=== PATIENT | male | born 1950 | race Caucasian/White ===

== ENCOUNTER → 2016-12-09 | Outpatient (CLI) | payer MEDICARE, BC ==
--- NOTE | 2016-12-09 10:54 | US ---
EXAMINATION: Right thyroid ultrasound and ultrasound-guided right thyroid fine-needle aspiration HISTORY: Mass COMPARISON: 08/11/2014 TECHNIQUE: Grayscale images were obtained of the right thyroid lobe. Subsequently the patient was co nsented following healing the risks and benefits of the procedure. The right neck was sterilely prep ped and draped. 1% lidocaine was administered for local anesthesia. Using ultrasound guidance a tota l of 7 25-gauge and a single 22-gauge fine-needle aspirations were obtained. These were fixed 2 slid es. The patient tolerated the procedure well. FINDINGS: The right thyroid lobe demonstrated several hypoechoic heterogeneous nodules the largest a long the superficial aspect measuring 2.1 x 1.6 cm. IMPRESSION: 1. Several suspicious hypoechoic solid nodules within the right thyroid lobe. 2. The largest and most superficial nodule was fine-needle aspirated using ultrasound guidance.
== END ==
LOC: MW.US 08:22
PROVIDERS: ATTEND Otolaryngology Otolaryngology/Facial Plastic Surgery
DX: R22.1 Localized swelling, mass and lump, neck (principal); E04.1 Nontoxic single thyroid nodule
CPT/HCPCS: 10022; 76536-26-RT; 76536-RT; 76942-26-RT; 76942-RT; 88173

== ENCOUNTER 2017-03-29 10:37 | Inpatient (IN) | payer MEDICARE, BC ==
[2017-03-29] MEDS ORDERED: Sodium Chloride 0.9% 2.5 ML Syringe FLUSH PRN (11:03)
[2017-03-29] MEDS ORDERED: Sodium Chloride 0.9% 10 ML Syringe FLUSH PRN (11:03)
[2017-03-29] MEDS ORDERED: Ondansetron 4 MG/2 ML SDV IVPUSH ONE (11:03)
[2017-03-29] MEDS ORDERED: Sodium Chloride 0.9% 1,000 ML IV ONE ×3 (11:03→16:56)
[2017-03-29] MEDS ORDERED: Morphine 2 MG/ML Syringe IVPUSH ONE (11:03)
--- NOTE | 2017-03-29 11:03 | EDM.PDOC ---
ED HPI GENERAL MEDICAL PROBLEM - General Chief Complaint: Gastrointestinal Problem Stated Complaint: ADBOMIAL PAIN Time Seen by Provider: 03/29/17 10:38 Source of Information: Reports: Patient History Limitations: Reports: No Limitations - History of Present Illness INITIAL COMMENTS - FREE TEXT/NARRATIVE: History of present illness: []Patient has over a 3 year history of rectal cancer with metastases. He is currently on chemotherapy and his last chemotherapy was 6 days ago and has had no appetite with intermittent vomiting and lower abdominal pain since. After receiving chemotherapy he usually has one day of vomiting and feeling poorly and then improves. He denies any chest pain, shortness of breath, fevers or chills. Review of systems: As per history of present illness and below otherwise all systems reviewed and negative. Past medical history: As per history of present illness and as reviewed below otherwise noncontributory. Surgical history: As per history of present illness and as reviewed below otherwise noncontributory. Social history: No reported history of drug or alcohol abuse. Family history: As per history of present illness and as reviewed below otherwise noncontributory. Physical exam: General: Well developed, cachectic HEENT: Atraumatic, normocephalic, pupils reactive, negative for conjunctival pallor or scleral icterus, mucous membranes dry, throat clear, neck supple, nontender, trachea midline. Lungs: Clear to auscultation, breath sounds equal bilaterally, chest nontender. Heart: S1S2, regular, negative for clicks, rubs, or JVD. Abdomen: Soft, functioning colostomy, nondistended, nontender. Negative for masses or hepatosplenomegaly. Negative for costovertebral tenderness. Pelvis: Stable nontender. Genitourinary: Deferred. Rectal: Deferred. Extremities: Atraumatic, negative for cords or calf pain. Neurovascular unremarkable. Neuro: Awake, alert, oriented. Cranial nerves II through XII unremarkable. Cerebellum unremarkable. Motor and sensory unremarkable throughout. Exam nonfocal. Diagnostics: []Labs done showing dehydration Therapeutics: []IV hydrated while in the ED Zofran given for nausea Impression: []Dehydration on chemotherapy, Rectal cancer with metastases. Plan: []Admit for IV hydration for the treatment Definitive disposition and diagnosis as appropriate pending reevaluation and review of above. abdomen Pain Score (Numeric/FACES): 6 - Related Data Allergies Allergy/AdvReac Type Severity Reaction Status Date / Time No Known Allergies Allergy Verified 03/29/17 10:48 ED ROS GENERAL - Review of Systems Review Of Systems: See Below (See history of present illness) ED EXAM, GI/ABD - Physical Exam Exam: See Below (See history of present illness) Course - Vital Signs Last Recorded V/S: Last Vital Signs Temp 36.0 C 03/29/17 10:48 Pulse 111 H 03/29/17 10:48 Resp 14 03/29/17 11:38 BP 101/72 03/29/17 11:38 Pulse Ox 92 L 03/29/17 11:38 - Orders/Labs/Meds Orders: Active Orders 24 hr Category Date Time Status Cardiac Monitoring [RC] . DIRECTED Care 03/29/17 11:03 Active UA W/MICROSCOPIC [URIN] Stat Lab 03/29/17 11:02 Uncollected Sodium Chloride 0.9% [Saline Flush] Med 03/29/17 11:03 Active 10 ml FLUSH ASDIRECTED PRN Sodium Chloride 0.9% [Saline Flush] Med 03/29/17 11:03 Active 2.5 ml FLUSH ASDIRECTED PRN Saline Lock Insert [OM.PC] Stat Oth 03/29/17 11:02 Ordered Medication Orders Sodium Chloride (Saline Flush) 10 ml FLUSH ASDIRECTED PRN PRN Reason: Keep Vein Open Sodium Chloride (Saline Flush) 2.5 ml FLUSH ASDIRECTED PRN PRN Reason: Keep Vein Open Labs: Laboratory Tests 03/29/17 03/29/17 Range/Units 11:06 11:06 WBC 3.22 L (4.0-11.0) K/uL RBC 4.86 (4.50-5.90) M/uL Hgb 15.2 (13.0-17.0) g/dL Hct 43.6 (38.0-50.0) % MCV 89.7 (80.0-98.0) fL MCH 31.3 (27.0-32.0) pg MCHC 34.9 (31.0-37.0) g/dL RDW Std Deviation 49.8 (28.0-62.0) fl RDW Coeff of Rene 15 (11.0-15.0) % Plt Count 247 (150-400) K/uL MPV 9.20 (7.40-12.00) fL Neut % (Auto) 90.7 H (48.0-80.0) % Lymph % (Auto) 6.5 L (16.0-40.0) % Clay % (Auto) 2.8 (0.0-15.0) % Eos % (Auto) 0.0 (0.0-7.0) % Baso % (Auto) 0.0 (0.0-1.5) % Neut # (Auto) 2.9 (1.4-5.7) K/uL Lymph # (Auto) 0.2 L (0.6-2.4) K/uL Clay # (Auto) 0.1 (0.0-0.8) K/uL Eos # (Auto) 0.0 (0.0-0.7) K/uL Baso # (Auto) 0.0 (0.0-0.1) K/uL Nucleated RBC % 0.0 /100WBC Nucleated RBCs # 0 K/uL Sodium 137 (136-146) mmol/L Potassium 4.8 (3.5-5.1) mmol/L Chloride 79 L (98-110) mmol/L Carbon Dioxide 35 H (21-31) mmol/L BUN 63 H (6.0-23.0) mg/dL Creatinine 4.0 H (0.6-1.5) mg/dL Est Cr Clr Drug Dosing 14.95 mL/min Estimated GFR (MDRD) 15.1 ml/min Glucose 174 H (60-110) mg/dL Calcium 11.6 H (8.8-10.8) mg/dL Total Bilirubin 0.7 (0.1-1.5) mg/dL AST 17 (5-40) IU/L ALT 14 (8-54) IU/L Alkaline Phosphatase 76 (40-150) Total Protein 9.0 H (6.0-8.0) g/dL Albumin 4.8 (3.4-4.8) g/dL Globulin 4.2 H (2.0-3.5) g/dL Albumin/Globulin Ratio 1.1 L (1.3-2.8) Meds: Medications Generic Name Dose Route Start Last Admin Trade Name Freq PRN Reason Stop Dose Admin Sodium Chloride 10 ml 03/29/17 11:03 Saline Flush FLUSH ASDIRECTED PRN Keep Vein Open Sodium Chloride 2.5 ml 03/29/17 11:03 Saline Flush FLUSH ASDIRECTED PRN Keep Vein Open Discontinued Medications Generic Name Dose Route Start Last Admin Trade Name Pedroq PRN Reason Stop Dose Admin Sodium Chloride 1,000 mls @ 999 mls/hr 03/29/17 11:03 03/29/17 11:15 Normal Saline IV 03/29/17 12:03 999 mls/hr .Bolus ONE Administration Morphine Sulfate 2 mg 03/29/17 11:03 03/29/17 11:42 Morphine IVPUSH 03/29/17 11:04 2 mg ONETIME ONE Administration Ondansetron HCl 4 mg 03/29/17 11:03 03/29/17 11:39 Zofran IVPUSH 03/29/17 11:04 4 mg ONETIME ONE Administration Departure - Departure Time of Disposition: 12:18 Disposition: Admitted As Inpatient 65 Condition: Good Clinical Impression: Dehydration, Rectal cancer Abdominal pain Qualifiers: Abdominal location: lower abdomen, unspecified Qualified Code(s): R10.30 - Lower abdominal pain, unspecified - Discharge Information Forms: ED Department Discharge - My Orders Last 24 Hours: My Active Orders 03/29/17 11:02 UA W/MICROSCOPIC [URIN] Stat Saline Lock Insert [OM.PC] Stat 03/29/17 11:03 Cardiac Monitoring [RC] . DIRECTED Sodium Chloride 0.9% [Saline Flush] 10 ml FLUSH ASDIRECTED PRN Sodium Chloride 0.9% [Saline Flush] 2.5 ml FLUSH ASDIRECTED PRN - Assessment/Plan Last 24 Hours: My Active Orders 03/29/17 11:02 UA W/MICROSCOPIC [URIN] Stat Saline Lock Insert [OM.PC] Stat 03/29/17 11:03 Cardiac Monitoring [RC] . DIRECTED Sodium Chloride 0.9% [Saline Flush] 10 ml FLUSH ASDIRECTED PRN Sodium Chloride 0.9% [Saline Flush] 2.5 ml FLUSH ASDIRECTED PRN
[2017-03-29] MEDS ORDERED: Ondansetron 4 MG/2 ML SDV IVPUSH PRN (12:58)
[2017-03-29] MEDS ORDERED: Sodium Chloride 0.9% 1,000 ML IV SCH (13:00)
--- NOTE | 2017-03-29 13:09 | PCM.HP ---
H&P History of Present Illness - General Admit Problem/Dx: Admission Diagnosis/Problem Admission Diagnosis/Problem Acute renal failure - History of Present Illness Initial Comments - Free Text/Narative: 66 yo male with pmh of metastatic rectal cancer diangosis in 2013 with recurrence in the neck. He finished a recent round of chemotherapy six days ago. His symptoms of nausea and vomting lasted longer than normal. He has not been able to keep anything down in several days. He reports intermittent abdominal pain. He denies any fevers or chills. In the ED his blood pressure was noted to be 72/51 which responded to liter fluid bolus. He notes frequent loose stools from ostomy, and reports he is still making clear urine. He does report episodic abdominal pain. abdomen Pain Score (Numeric/FACES): 6 - Related Data Allergies/Adverse Reactions: Allergies Allergy/AdvReac Type Severity Reaction Status Date / Time No Known Allergies Allergy Verified 03/29/17 10:48 Past Medical History Cardiovascular History: Reports: Heart Murmur Genitourinary History: Reports: Other (See Below) Other Genitourinary History: cholostomy Oncologic (Cancer) History: Reports: Other (See Below) Other Oncologic History: rectal cancer- on chemo - Past Surgical History Endocrine Surgical History: Reports: Thyroidectomy Social & Family History - Family History Family Medical History: Noncontributory - Tobacco Use Smoking Status *Q: Light Tobacco Smoker Years of Tobacco use: 40 Packs/Tins Daily: 0.5 - Recreational Drug Use Recreational Drug Use: No H&P Review of Systems - Review of Systems: Review Of Systems: See Below General: Reports: No Symptoms HEENT: Reports: No Symptoms Pulmonary: Reports: No Symptoms Cardiovascular: Reports: No Symptoms Gastrointestinal: Reports: No Symptoms Genitourinary: Reports: No Symptoms Musculoskeletal: Reports: No Symptoms Skin: Reports: No Symptoms Psychiatric: Reports: No Symptoms Neurological: Reports: No Symptoms Hematologic/Lymphatic: Reports: No Symptoms Immunologic: Reports: No Symptoms Exam - Exam Exam: See Below - Vital Signs Vital Signs: Last Vital Signs Temp 36.0 C 03/29/17 10:48 Pulse 111 H 03/29/17 10:48 Resp 14 03/29/17 11:38 BP 101/72 03/29/17 11:38 Pulse Ox 92 L 03/29/17 11:38 Weight: 58.967 kg - Exam General: Alert, Oriented, Other (cachectic) Neck: Supple Cardiovascular: Regular Rate, Regular Rhythm GI/Abdominal Exam: Normal Bowel Sounds, Soft, Non-Tender, No Distention Back Exam: No: CVA Tenderness (L), CVA Tenderness (R) Extremities: Normal Inspection, Non-Tender, No Pedal Edema Skin: Warm, Dry, Intact Neurological: No: Focal Deficit Psychiatric: Alert, Normal Mood - Patient Data Lab Results Last 24 hrs: Laboratory Results - last 24 hr 03/29/17 03/29/17 Range/Units 11:06 11:06 WBC 3.22 L (4.0-11.0) K/uL RBC 4.86 (4.50-5.90) M/uL Hgb 15.2 (13.0-17.0) g/dL Hct 43.6 (38.0-50.0) % MCV 89.7 (80.0-98.0) fL MCH 31.3 (27.0-32.0) pg MCHC 34.9 (31.0-37.0) g/dL RDW Std Deviation 49.8 (28.0-62.0) fl RDW Coeff of Rene 15 (11.0-15.0) % Plt Count 247 (150-400) K/uL MPV 9.20 (7.40-12.00) fL Neut % (Auto) 90.7 H (48.0-80.0) % Lymph % (Auto) 6.5 L (16.0-40.0) % Winkler % (Auto) 2.8 (0.0-15.0) % Eos % (Auto) 0.0 (0.0-7.0) % Baso % (Auto) 0.0 (0.0-1.5) % Neut # (Auto) 2.9 (1.4-5.7) K/uL Lymph # (Auto) 0.2 L (0.6-2.4) K/uL Winkler # (Auto) 0.1 (0.0-0.8) K/uL Eos # (Auto) 0.0 (0.0-0.7) K/uL Baso # (Auto) 0.0 (0.0-0.1) K/uL Nucleated RBC % 0.0 /100WBC Nucleated RBCs # 0 K/uL Sodium 137 (136-146) mmol/L Potassium 4.8 (3.5-5.1) mmol/L Chloride 79 L (98-110) mmol/L Carbon Dioxide 35 H (21-31) mmol/L BUN 63 H (6.0-23.0) mg/dL Creatinine 4.0 H (0.6-1.5) mg/dL Est Cr Clr Drug Dosing 14.95 mL/min Estimated GFR (MDRD) 15.1 ml/min Glucose 174 H (60-110) mg/dL Calcium 11.6 H (8.8-10.8) mg/dL Total Bilirubin 0.7 (0.1-1.5) mg/dL AST 17 (5-40) IU/L ALT 14 (8-54) IU/L Alkaline Phosphatase 76 (40-150) Total Protein 9.0 H (6.0-8.0) g/dL Albumin 4.8 (3.4-4.8) g/dL Globulin 4.2 H (2.0-3.5) g/dL Albumin/Globulin Ratio 1.1 L (1.3-2.8) Result Diagrams: 03/29/17 11:06 03/29/17 11:06 *Q Meaningful Use (ADM) - VTE *Q VTE Criteria *Q: - Stroke *Q Stroke Criteria *Q: - AMI *Q AMI Criteria *Q: Problem List Initiated/Reviewed/Updated: Yes Orders Last 24hrs: Active Orders 24 hr Category Date Time Status Admission Status [Patient Status] [ADT] Stat ADT 03/29/17 13:01 Ordered Antiembolic Devices [RC] PER UNIT ROUTINE Care 03/29/17 13:00 Ordered Cardiac Monitoring [RC] . DIRECTED Care 03/29/17 11:03 Active Cardiac Monitoring [RC] CONTINUOUS Care 03/29/17 12:59 Ordered Moreno Catheter Insertion [Insert Urinary Catheter] [OM. Care 03/29/17 13:00 Ordered PC] Q24H Intake and Output [RC] QSHIFT Care 03/29/17 12:59 Ordered Oxygen Therapy [RC] PRN Care 03/29/17 12:58 Ordered Up ad Paola [RC] ASDIRECTED Care 03/29/17 12:58 Ordered Urinary Catheter Assessment [RC] ASDIRECTED Care 03/29/17 12:57 Ordered VTE/DVT Education [RC] PER UNIT ROUTINE Care 03/29/17 12:58 Ordered Vital Signs [RC] Q4H Care 03/29/17 12:58 Ordered Regular Diet [DIET] Diet 03/29/17 Breakfast Ordered Abdomen Pelvis wo Cont [CT] Stat Exams 03/29/17 12:55 Ordered Chest 2V [CR] Stat Exams 03/29/17 12:55 Ordered BASIC METABOLIC PANEL,BMP [CHEM] AM Lab 03/30/17 05:11 Ordered BASIC METABOLIC PANEL,BMP [CHEM] AM Lab 03/31/17 05:11 Ordered BASIC METABOLIC PANEL,BMP [CHEM] AM Lab 04/01/17 05:11 Ordered CBC WITH AUTO DIFF [HEME] AM Lab 03/30/17 05:11 Ordered CBC WITH AUTO DIFF [HEME] AM Lab 03/31/17 05:11 Ordered CBC WITH AUTO DIFF [HEME] AM Lab 04/01/17 05:11 Ordered CREATININE,URINE RAND [URCHEM] Stat Lab 03/29/17 12:57 Uncollected SODIUM,URINE RANDOM [URCHEM] Stat Lab 03/29/17 12:57 Uncollected UA W/MICROSCOPIC [URIN] Stat Lab 03/29/17 11:02 Uncollected Heparin Sodium Med 03/29/17 21:00 Ordered 5,000 units SUBCUT Q12HR Ondansetron [Zofran] Med 03/29/17 12:58 Ordered 4 mg IVPUSH Q4H PRN Sodium Chloride 0.9% @ 150 MLS/HR (1,000ml) Med 03/29/17 13:00 Ordered Sodium Chloride 0.9% [Normal Saline] 1,000 ml IV ASDIRECTED Sodium Chloride 0.9% [Normal Saline] 1,000 ml Med 03/29/17 13:00 Ordered IV .Bolus Sodium Chloride 0.9% [Saline Flush] Med 03/29/17 11:03 Active 10 ml FLUSH ASDIRECTED PRN Sodium Chloride 0.9% [Saline Flush] Med 03/29/17 11:03 Active 2.5 ml FLUSH ASDIRECTED PRN Saline Lock Insert [OM.PC] Stat Oth 03/29/17 11:02 Ordered Sequential Compression Device [OM.PC] Per Unit Routine Oth 03/29/17 12:59 Ordered Resuscitation Status Routine Resus Stat 07/19/17 12:58 Ordered Medication Orders Heparin Sodium (Porcine) (Heparin Sodium) 5,000 units SUBCUT Q12HR CONSUELO Sodium Chloride (Normal Saline) 1,000 mls @ 999 mls/hr IV .Bolus ONE Stop: 03/29/17 14:00 Sodium Chloride (Normal Saline) 1,000 mls @ 150 mls/hr IV ASDIRECTED CONSUELO Ondansetron HCl (Zofran) 4 mg IVPUSH Q4H PRN PRN Reason: Nausea Sodium Chloride (Saline Flush) 10 ml FLUSH ASDIRECTED PRN PRN Reason: Keep Vein Open Sodium Chloride (Saline Flush) 2.5 ml FLUSH ASDIRECTED PRN PRN Reason: Keep Vein Open Assessment/Plan Comment:: 66 yo male admitted for dehydration and acute renal failure likely due to GI side effects of chemotherapy. Will check CXR and CT scan abdomen to evaluated cough and abdominal pain. Will continue IV fluid resuscitation. CT scan reported high grade small bowel obstruction. NG tube was placed with liter fluid output. Dr. Gay was consulted and recommended transfer as he thought patent would benefit from surgery and due to renal failure thought patient should be in a place that has multi speciality consultation. Dr. Gay arranged for transfer to [facility] in [place]. Hypotension: He is responding to IV fluid boluses. CT scan reported ground glass opacities at lung bases. Empirically he was given levaquin, zosyn and vancomycin. Patient has greater than 999 mls on bladder scanner. Nurses have noted resistance with moreno placement. Dr. Mak has been consulted for Moreno placement.
--- NOTE | 2017-03-29 13:56 | CT ---
CT of the abdomen and pelvis without contrast. HISTORY: Pain TECHNIQUE: Axial CT images were obtained of the abdomen and pelvis without contrast. Coronal and sag ittal reconstructions obtained. FINDINGS: Patchy small ground glass opacities within the lung bases, right greater than left, likely centrilob ular in distribution. The liver, spleen, adrenal glands, and pancreas appear unremarkable for noncontrast examination. The gallbladder appears normal. There is no bulky retroperitoneal lymphadenopathy. No abdominal ascite s. There are no calcifications noted within the kidneys or along the courses of the ureters bilaterally . There is dilatation of the stomach and proximal small bowel. There is a transition point within the mid to left upper abdomen near images 53-57 and series 201. There is a left lower quadrant colostomy noted with a parastomal hernia containing bowel, however this appears just distal to the region of obstruction. There is no bulky pelvic lymphadenopathy. No free fluid. No free air. The urinary bladd er appears normal. The prostate is mildly prominent. The visualized osseous structures appear normal. IMPRESSION: 1. High-grade mechanical small bowel obstruction. 2. Left lower quadrant diverting colostomy with peristomal hernia of small bowel, however this to be just distal to the transition point. 3. Scattered small groundglass opacities within the lung bases. 4.
--- NOTE | 2017-03-29 14:20 | CR ---
EXAMINATION: Two-view chest (PA and Lateral views). HISTORY: Rectal cancer. Comparison: 11/08/2016. FINDINGS: The trachea is midline. The cardiomediastinal silhouette is within normal limits. There is left supr ahilar nodularity again noted corresponding to findings on the prior CT. Mild interstitial prominenc e and hyperinflation. No focal consolidation or pleural effusion. Osseous structures appear unremarkable. IMPRESSION: No acute cardiopulmonary process.
[2017-03-29] MEDS ORDERED: Levofloxacin/Dextrose 5%-Water 750 MG in Premix Bag 1 BAG IV ONE (15:15)
[2017-03-29] MEDS ORDERED: Benzocaine 20% Topical Spray UD MUCMEM ONE ×2 (15:42→15:44)
--- NOTE | 2017-03-29 16:37 | CR ---
EXAMINATION: Abdomen HISTORY: NG tube placement COMPARISON: CT from the same day TECHNIQUE: Single AP view FINDINGS: Single view of the abdomen demonstrates an NG tube with tip projecting over the stomach. A dilated loops of small bowel are not as well appreciated as noted on the recent CT. Scattered punct ate densities project over the colon. No organomegaly. The lung bases are clear. The visualized soft tissue structures appear grossly unremarkable. IMPRESSION: NG tube noted with tip projecting within the stomach.
[2017-03-29] MEDS ORDERED: Piperacillin/Tazobactam 2.25 GM in Sodium Chloride 0.9% 50 ML IV SCH (17:15)
[2017-03-29 19:41] VITALS: BP 110/60
[2017-03-29] MEDS ORDERED: Heparin Sodium 5,000 Units/ML Vial SUBCUT SCH (21:00)
--- NOTE | 2017-03-30 06:13 | HP ---
DATE OF : 1950 PRIMARY CARE PHYSICIAN: None PCP ADDENDUM: The patient is transferring to [place] per the patient request with continued care and also to a multispecialty facility for his care, and the patient is having high-grade small bowel obstruction, will likely receive surgery and the patient is currently having acute renal failure and that may put the patient at risk to dialysis. JAYJAY / EPI /[id number]
--- NOTE | 2017-03-30 06:34 | CONS ---
DATE OF CONSULTATION: 03/29/2017 DATE OF : 1950 PRIMARY CARE PHYSICIAN: None PCP CONSULTING PHYSICIAN: Dr. Menjivar. CONSULTING QUESTION: High-grade small bowel obstruction. HISTORY OF PRESENT ILLNESS: The patient is a 66-year-old gentleman, had rectal cancer, status post presumably anteroposterior resection by Dr. Jeremy Murray in [place] in 2013 and he has been doing fine in his usual health and then complained of nausea, vomiting, and abdominal pain for the last 3 days and also noticed that the colostomy bag is not blown up anymore and output from colostomy is also scanty and only liquid. Seek help in the emergency room. Admit to medical service for further management. ER workup with CAT scan came back with high-grade small bowel obstruction and also parastomal hernia. Currently, the patient is comfortable. Denied pain and the patient got 2 mg IV morphine. PHYSICAL EXAMINATION: VITAL SIGNS: Blood pressure 98/60, heart rate of 60. GENERAL: The patient is on examination alert, awake, and without complaints. HEENT: Normocephalic, atraumatic. Sclerae anicteric. LUNGS: Clear to auscultation. HEART: Regular rate and rhythm. ABDOMEN: Soft, nondistended. No pulsating, tender midline abdominal structure. Colostomy bag is flat and no output and ostomy is pink. LABORATORY DATA: Upon consultation, BUN is 68 and creatinine is 4.1. PAST MEDICAL HISTORY: The patient is not diabetic. PAST SURGICAL HISTORY: DEC, 2013. ALLERGIES: Please refer nursing for details. NG tube was inserted. Output was 1.2 liters in 40 minutes. IMPRESSION: High-grade small bowel obstruction consistent with imaging study and physical exam and lab value. The patient would benefit from timely surgical decompression. With the patient's BUN and creatinine, the patient is having acute renal failure, the patient is likely at risk for dialysis after surgery. The patient would benefit from transfer to a higher facility because of the acute renal failure and risks and benefits were discussed. The patient began treatment plan and the patient requested to be transferred to [place]. A long discussion, case presented to Dr. Petersen, on-call surgeon in [place]. Dr. Petersen accepted the transfer. The patient is being transferred to a higher facility. Treatment plan has been also discussed with Dr. Menjivar, the medical attending. As always, thank you for the kind referral. JAYJAY / EPI /[id number]
== END 2017-03-29 18:10 | DRG 641 ==
LOC: MW.ED 10:37 → MW.MS 13:01
PROVIDERS: ADMIT Internal Medicine; ATTEND Internal Medicine
DX: E86.0 Dehydration (principal); R10.30 Lower abdominal pain, unspecified; K56.60 Unspecified intestinal obstruction; N17.9 Acute kidney failure, unspecified; C20 Malignant neoplasm of rectum; I95.9 Hypotension, unspecified; Z79.899 Other long term (current) drug therapy; Z93.3 Colostomy status
CPT/HCPCS: 36415; 80053; 85025; 96361; 96374; 96375; 99285; J2270; J2405; J7040; 51703; 71020; 71020-26; 74000; 74000-26; 74176; 74176-26; 81001; 82570; 84300; 87040; A9270-GY; J1956; J2543; J3370; J7050

== ENCOUNTER 2018-01-02 11:06 | Inpatient (IN) | payer MEDICARE, BC ==
[2018-01-02] MEDS ORDERED: Sodium Chloride 0.9% 1,000 ML IV ONE (11:41)
--- NOTE | 2018-01-02 11:46 | EDM.PDOC ---
ED HPI GENERAL MEDICAL PROBLEM - General Chief Complaint: Abdominal Pain Stated Complaint: ABDOMINAL EVALUATION Time Seen by Provider: 01/02/18 11:22 - History of Present Illness INITIAL COMMENTS - FREE TEXT/NARRATIVE: HISTORY AND PHYSICAL: History of present illness: The patient is a 59-year-old male with a known history of metastatic rectal cancer who had surgery on this and has a colostomy and has a port in place who was recently seen in the oncology clinic on December 21 after having a PET scan performed October 30, 2018. The patient had been on palliative chemotherapy which was placed on hold and the PET scan was performed which showed progression of the disease with an increasing an enlarging presacral mass decreasing pulmonary metastatic disease. He also had some unchanged low level uptake within the region of the spinal cord at T12. At that appointment it was decided to restart chemotherapy both oral and IV and his last chemotherapy was December 21. He is scheduled to get chemotherapy every 3 weeks and is scheduled for the next chemotherapy next week. Family says that in March of last year he did have a bowel obstruction but has been doing well with intermittent constipation since that time. According to family last week he had abdominal pain distention and constipation for about 3-4 days and had in explosive large bowel movement on Monday and since that time has not had any pain. They're concerned because since that time he has had increased levels of gas production and pasty and liquidy stools without black or bloody stools. The patient tells me he always has liquidy stools and that that is not new or different but the increased gas is. He currently states he has no abdominal pain no lightheadedness no chest pain no shortness of breath and is not feeling weak or like he is going to pass out or black out. The patient presented today to oncology clinic and was noted to have a blood pressure 80s over 50s and was given 1 L of fluid with improvement but they were concerned because he has had a 16 pound weight loss over the last 2 weeks area the patient and family tell me he is not eating very much and he is not even doing Ensure supplementation. He says he does not have much of an appetite and he is not nauseated. He had a small emesis this morning but is not nauseated now and says he does not want anything for that. He says he is just not eating because he does not have much of an appetite and the family is concerned with increased volume of liquid output that is going to progress to lose more weight and become more dehydrated. Labs were drawn in oncology clinic, CBC and CMP, and his port was accessed with a IV fluids. Currently in the ED now he has no complaints whatsoever. Family and patient say that he always has a cough productive of phlegm and that is not new or different. Review of systems: As per history of present illness and below otherwise all systems reviewed and negative. Past medical history: As per history of present illness and as reviewed below otherwise noncontributory. Surgical history: As per history of present illness and as reviewed below otherwise noncontributory. Social history: No reported history of drug or alcohol abuse. Family history: As per history of present illness and as reviewed below otherwise noncontributory. Physical exam: General: Well-developed thin cachectic man who is nontoxic and speaking clearly and moves easily in the ED without distress. Vital signs are noted by me HEENT: Atraumatic, normocephalic, pupils reactive, negative for conjunctival pallor or scleral icterus, mucous membranes tacky, throat clear, neck supple, nontender, trachea midline. Lungs: Coarse breath sounds bilaterally with occasional rhonchi but no wheezing stridor or work of breathing, breath sounds equal bilaterally, chest nontender. Port is identified in the left upper chest wall without redness discomfort or erythema Heart: S1S2, regular, negative for clicks, rubs, or JVD. Abdomen: Soft, nondistended, nontender. Negative for masses or hepatosplenomegaly. Negative for costovertebral tenderness. Bowel sounds are hypoactive and colostomy is seen in the left lower abdomen with a viable stoma and liquidy light brown stool. There is no rebound no guarding and no tympany on percussion. Pelvis: Stable nontender. Genitourinary: Deferred. Rectal: Deferred. Extremities: Atraumatic, negative for cords or calf pain. Neurovascular unremarkable. Neuro: Awake, alert, oriented. Cranial nerves II through XII unremarkable. Cerebellum unremarkable. Motor and sensory unremarkable throughout. Exam nonfocal. Diagnostics: CBC and CMP were sent from oncology clinic and we will add magnesium level UA chest and abdominal x-rays Therapeutics: IV fluids Patient labs from today have been compared to those performed on December 20 and his BUN and creatinine of today is significantly higher than that performed on the earlier test. Today's labs are 56/2.0 and on December 20 they were 13/1.0. Patient also has a change in pulse from supine to sitting position from 65-81 but no change in blood pressure and doesn't do so we feel woozy or dizzy. At this point he has also not been able to make urine as he does not feel the urge. His potassium is low and his magnesium was also low. I discussed with and family at bedside observation admission to try to correct these abnormalities and potential he meet with dietary to discuss options for him to improve his nutrition and by mouth intake. I will discuss this case with the hospitalist Impression: Dehydration from diarrhea, mild hypokalemia and hypomagnesemia, history of metastatic rectal cancer on chemotherapy Definitive disposition and diagnosis as appropriate pending reevaluation and review of above. - Related Data Allergies Allergy/AdvReac Type Severity Reaction Status Date / Time No Known Allergies Allergy Verified 01/02/18 11:13 Home Meds: Home Meds Allopurinol [Zyloprim] 100 mg PO DAILY 01/02/18 [History] Calcium Carbonate/Vitamin D3 [Calcium Carb 500 MG] 500 mg PO BID 01/02/18 [ History] Capecitabine [Xeloda] 1,000 mg PO BID 01/02/18 [History] Capecitabine [Xeloda] 300 mg PO BID 01/02/18 [History] Colchicine 0.6 mg PO DAILY PRN 01/02/18 [History] Diphenoxylate HCl/Atropine [Lomotil] 1 tab PO QID PRN 01/02/18 [History] Ferrous Fumarate [Hemocyte] 324 mg PO DAILY 01/02/18 [History] Levothyroxine 125 mcg PO ACBREAKFAST 01/02/18 [History] Multivitamin [Daily Multiple Vitamin] 1 tab PO DAILY 01/02/18 [History] Prednisone [IMW: predniSONE] 20 mg PO ASDIRECTED 01/02/18 [History] Past Medical History Cardiovascular History: Reports: Heart Murmur Gastrointestinal History: Reports: Other (See Below) Other Gastrointestinal History: rectal cancer Genitourinary History: Reports: Other (See Below) Other Genitourinary History: cholostomy Oncologic (Cancer) History: Reports: Other (See Below) Other Oncologic History: rectal cancer- on chemo - Past Surgical History Endocrine Surgical History: Reports: Thyroidectomy Social & Family History - Family History Family Medical History: Noncontributory - Tobacco Use Smoking Status *Q: Current Every Day Smoker Years of Tobacco use: 40 Packs/Tins Daily: 0.4 - Recreational Drug Use Recreational Drug Use: No ED ROS GENERAL - Review of Systems Review Of Systems: ROS reveals no pertinent complaints other than HPI. ED EXAM, GENERAL - Physical Exam Exam: See Below (See dictation) Course - Vital Signs Last Recorded V/S: Last Vital Signs Temp 36.2 C 01/02/18 11:13 Pulse 86 01/02/18 11:13 Resp 18 01/02/18 11:13 BP 101/61 01/02/18 11:13 Pulse Ox 94 L 01/02/18 11:13 Orthostatic Blood Pressure [ 100/55 Sitting] Orthostatic Blood Pressure [ 106/63 Supine] - Orders/Labs/Meds Orders: Active Orders 24 hr Category Date Time Status UA W/MICROSCOPIC [URIN] Stat Lab 01/02/18 11:39 Ordered Magnesium Sulfate [Magnesium Sulfate 50%] 1 gm Med 01/03/18 09:00 Active Sodium Chloride 0.9% [Normal Saline] 50 ml IV DAILY Medication Orders Magnesium Sulfate 1 gm/ Sodium (Chloride) 52 mls @ 52 mls/hr IV DAILY OCNSUELO Labs: Laboratory Tests 01/02/18 Range/Units 10:00 Magnesium 1.3 L (1.5-2.0) mg/dL Meds: Medications Generic Name Dose Route Start Last Admin Trade Name Freq PRN Reason Stop Dose Admin Magnesium Sulfate 1 gm/ Sodium 52 mls @ 52 mls/hr 01/03/18 09:00 Chloride IV DAILY CONSUELO Discontinued Medications Generic Name Dose Route Start Last Admin Trade Name Freq PRN Reason Stop Dose Admin Sodium Chloride 1,000 mls @ 999 mls/hr 01/02/18 11:41 01/02/18 11:53 Normal Saline IV 01/02/18 12:41 999 mls/hr STAT ONE Administration Magnesium Sulfate 1 gm 01/02/18 12:37 Magnesium Sulfate 50% IV 01/02/18 12:38 ONETIME ONE Potassium Chloride 40 meq 01/02/18 12:37 Klor-Con M20 PO 01/02/18 12:38 ONETIME ONE Departure - Departure Time of Disposition: 12:54 Disposition: Refer to Observation Condition: Good Clinical Impression: Dehydration, Rectal cancer Diarrhea Qualifiers: Diarrhea type: unspecified type Qualified Code(s): R19.7 - Diarrhea, unspecified - Discharge Information Referrals: PCP,Unknown [Primary Care Provider] - Forms: ED Department Discharge - My Orders Last 24 Hours: My Active Orders 01/02/18 11:39 UA W/MICROSCOPIC [URIN] Stat 01/03/18 09:00 Magnesium Sulfate [Magnesium Sulfate 50%] 1 gm Sodium Chloride 0.9% [Normal Saline] 50 ml IV DAILY - Assessment/Plan Last 24 Hours: My Active Orders 01/02/18 11:39 UA W/MICROSCOPIC [URIN] Stat 01/03/18 09:00 Magnesium Sulfate [Magnesium Sulfate 50%] 1 gm Sodium Chloride 0.9% [Normal Saline] 50 ml IV DAILY
--- NOTE | 2018-01-02 12:25 | CR ---
EXAMINATION: PA chest and AP and upright abdomen HISTORY: Pain. Comparison: Chest and abdomen radiographs dated 03/29/2017 FINDINGS: The trachea is midline. The cardiomediastinal silhouette is within normal limits. Stable perihilar sc arring noted bilaterally. There is a left-sided [id number]. Mild hyperinflation. No pulmonary infi ltrates, effusions or pneumothorax. No free air under the diaphragm. Stool and gas is noted within the colon without evidence of dilated small bowel. No organomegaly. No abnormal calcifications project over the kidneys. Clips project over the left abdomen. Degenerative changes noted within the lower lumbar spine. Osseous structures appear unremarkable. IMPRESSION: 1. No acute cardiopulmonary finding. 2. No acute findings noted within the abdomen.
[2018-01-02] MEDS ORDERED: Potassium Chloride 20 MEQ Tab.ER PO ONE ×2 (12:37→15:00)
[2018-01-02] MEDS ORDERED: Magnesium Sulfate (4.06 MEQ/ML) 1 GM/2 ML SDV IV ONE (12:37)
[2018-01-02] MEDS ORDERED: Acetaminophen 325 MG Tab PO PRN (13:47)
[2018-01-02] MEDS ORDERED: Magnesium Sulfate/Water 2 GM in Premix Bag 1 BAG IV ONE (13:55)
--- NOTE | 2018-01-02 14:04 | PCM.HP ---
<Luba Dimas M - Last Filed: 01/02/18 15:17> H&P History of Present Illness - General Date of Service: 01/02/18 Admit Problem/Dx: Admission Diagnosis/Problem Admission Diagnosis/Problem Dehydration Source of Information: Patient, Family (Daughters, Maria C and Yessenia helped with history. Along with Sebastian's sister Deb at bedside. ), Old Records ( Oncology records and [facility] records reviewed) History Limitations: Reports: No Limitations - History of Present Illness Initial Comments - Free Text/Narative: This 67 year old male with pmh of stage IV rectal cancer who is S/P APR with colostomy, hx thyroidectomy secondary to thyroid cancer, tobacco abuse and gout , presented initially to Oncology unit, noted to have BP mid 80s SBP and brought to the ED. He reports he is not eating or drinking well and having increased liquid brown to yellow stools. He denies abdominal pain, but having some heartburn. No black or bloody BMs. No hematemesis or epitaxis. He denies fevers, chills or URI symptoms. He reports a chronic cough with white,frothy phlegm. He reports having chemotherapy 2 weeks ago and is due for follow up with Dr Malagon, Oncology, on this week. He has not been eating much, due to poor appetite and nothing tasting good. He reports some mouth sores and pain with swallowing. No troubles swallowing. In Oncology, labwork obtained WBc 2,220, ANC 1554, Hgb 14.5, platelets 108, Na 133, K+2.9 Cl 96, bicarb 19.8, BUN 56, Cr 2.0 and magnesium 1.3. BP in ED after receiving 1 L fluids in Oncology was up to 100s SBP, Orthostatic BP in ED negative. He was treated with another 1 L fluids in ED, Magnesium 1 gm IV and 40 MEQ Potassium. He will be admitted observation for dehydration. PCP, Dr Melvin. Oncology Dr Malagon. - Related Data Allergies/Adverse Reactions: Allergies Allergy/AdvReac Type Severity Reaction Status Date / Time No Known Allergies Allergy Verified 01/02/18 11:13 Home Medications: Home Meds Allopurinol [Zyloprim] 100 mg PO DAILY 01/02/18 [History] Calcium Carbonate/Vitamin D3 [Calcium Carb 500 MG] 500 mg PO BID 01/02/18 [ History] Capecitabine [Xeloda] 1,000 mg PO BID 01/02/18 [History] Capecitabine [Xeloda] 300 mg PO BID 01/02/18 [History] Colchicine 0.6 mg PO DAILY PRN 01/02/18 [History] Diphenoxylate HCl/Atropine [Lomotil] 1 tab PO QID PRN 01/02/18 [History] Ferrous Fumarate [Hemocyte] 324 mg PO DAILY 01/02/18 [History] Levothyroxine 125 mcg PO ACBREAKFAST 01/02/18 [History] Multivitamin [Daily Multiple Vitamin] 1 tab PO DAILY 01/02/18 [History] Prednisone [IMW: predniSONE] 20 mg PO ASDIRECTED 01/02/18 [History] Past Medical History Cardiovascular History: Reports: Heart Murmur. Denies: Afib, Blood Clots/VTE/ DVT, CAD, [place] Respiratory History: Reports: None. Denies: PE, SOB Gastrointestinal History: Reports: Bowel Obstruction, Other (See Below) Other Gastrointestinal History: rectal cancer S/P APR with colostomy Musculoskeletal History: Reports: None Neurological History: Reports: None Psychiatric History: Reports: None Endocrine/Metabolic History: Reports: Hypothyroidism Hematologic History: Reports: None Oncologic (Cancer) History: Reports: Thyroid, Other (See Below) Other Oncologic History: rectal cancer- on chemo - Past Surgical History GI Surgical History: Reports: Other (See Below) (APR with colostomy) Endocrine Surgical History: Reports: Thyroidectomy Social & Family History - Family History Family Medical History: Noncontributory - Tobacco Use Smoking Status *Q: Current Every Day Smoker Years of Tobacco use: 40 Packs/Tins Daily: 0.4 - Alcohol Use Alcohol Use History: Yes Days Per Week of Alcohol Use: 4 Number of Drinks Per Day: 2 Total Drinks Per Week: 8 - Recreational Drug Use Recreational Drug Use: No - Living Situation & Occupation Living situation: Reports: Alone H&P Review of Systems - Review of Systems: Review Of Systems: See Below General: Reports: Weakness, Decreased Appetite, Weight Loss. Denies: Fever, Chills, Malaise HEENT: Reports: Sore Throat (pain with swallowing). Denies: Headaches, Sinus Congestion, Visual Changes Pulmonary: Reports: Cough (at baseline), Sputum (white froathy sputum) Cardiovascular: Reports: No Symptoms. Denies: Chest Pain, Palpitations, Edema, Lightheadedness Gastrointestinal: Reports: Diarrhea, Decreased Appetite, Flatus (a lot of gas from colostomy), Other (heartburn). Denies: Abdominal Pain, Black Stool, Bloody Stool, Distension, Hematemesis, Melena, Nausea, Vomiting Genitourinary: Reports: No Symptoms. Denies: Dysuria, Frequency, Burning Musculoskeletal: Reports: No Symptoms. Denies: Neck Pain, Back Pain Skin: Reports: No Symptoms Psychiatric: Reports: No Symptoms Neurological: Reports: No Symptoms Hematologic/Lymphatic: Reports: No Symptoms Immunologic: Reports: No Symptoms Exam - Exam Exam: See Below - Vital Signs Vital Signs: Last Vital Signs Temp 97.1 F 01/02/18 11:13 Pulse 86 01/02/18 11:13 Resp 18 01/02/18 11:13 BP 101/61 01/02/18 11:13 Pulse Ox 94 L 01/02/18 11:13 Orthostatic Blood Pressure [ 100/55 Sitting] Orthostatic Blood Pressure [ 106/63 Supine] Weight: 112 lb 14.027 oz - Exam Quality Assessment: DVT Prophylaxis General: Alert, Oriented, Cooperative, Other (cachetic in appearance and appears older than stated age) HEENT: Conjunctiva Clear, Posterior Pharynx Clear, Other (tongue lacy appearance. No erythema). No: Mucosa Moist & Sleepy Eye (dry) Neck: Supple, Trachea Midline, 2 Lungs: Clear to Auscultation, Normal Respiratory Effort Cardiovascular: Regular Rate, Regular Rhythm, Other (Port to L chest. ) GI/Abdominal Exam: Normal Bowel Sounds, Soft, Non-Tender, Other (Colostomy- stoma in good color, red, no bleeding ) Extremities: Normal Inspection, Normal Range of Motion, Non-Tender, No Pedal Edema, Normal Capillary Refill Skin: Warm, Dry Neuro Extensive - Mental Status: Alert, Oriented x3, Normal Mood/Affect, Normal Cognition Psychiatric: Alert, Normal Affect, Normal Mood - Patient Data Lab Results Last 24 hrs: Laboratory Results - last 24 hr 01/02/18 Range/Units 10:00 Magnesium 1.3 L (1.5-2.0) mg/dL *Q Meaningful Use (ADM) - VTE Risk Assess *Q Each Risk Factor Represents 1 Point: Serious lung disease including pneumonia Total Score 1 Point Risk Factors: 1 Each Risk Factor Represents 2 Points: Age 60 - 74 Years, Central venous access, Malignancy (present or previous) Total Score 2 Point Risk Factors: 6 Each Risk Factor Represents 3 Points: None Total Score 3 Point Risk Factors: 0 Each Risk Factor Represents 5 Points: None Total Score 5 Point Risk Factors: 0 Venous Thromboembolism Risk Factor Score *Q: 7 - Problem List (1) Dehydration SNOMED Code(s): 35235227 ICD Code: E86.0 - DEHYDRATION Status: Acute Current Visit: Yes (2) Diarrhea SNOMED Code(s): 60061077 ICD Code: R19.7 - DIARRHEA, UNSPECIFIED Status: Acute Current Visit: Yes Qualifiers: Diarrhea type: unspecified type Qualified Code(s): R19.7 - Diarrhea, unspecified (3) Oral candidiasis SNOMED Code(s): 73393265 ICD Code: B37.0 - CANDIDAL STOMATITIS Status: Acute Current Visit: Yes (4) Hypokalemia SNOMED Code(s): 13093595 ICD Code: E87.6 - HYPOKALEMIA Status: Acute Current Visit: Yes (5) Hypomagnesemia SNOMED Code(s): 876820718 ICD Code: E83.42 - HYPOMAGNESEMIA Status: Acute Current Visit: Yes (6) Hx of thyroid cancer SNOMED Code(s): 601252577 ICD Code: Z85.850 - PERSONAL HISTORY OF MALIGNANT NEOPLASM OF THYROID Status: Chronic Current Visit: Yes (7) Tobacco abuse SNOMED Code(s): 346215278 ICD Code: Z72.0 - TOBACCO USE Status: Chronic Current Visit: Yes (8) Gout SNOMED Code(s): 84769632 ICD Code: M10.9 - GOUT, UNSPECIFIED Status: Chronic Current Visit: Yes Qualifiers: Gout site: unspecified site Chronicity: chronic (9) Colostomy in place SNOMED Code(s): 847751553, 126084709 ICD Code: Z93.3 - COLOSTOMY STATUS Status: Chronic Current Visit: Yes (10) Palliative chemotherapy underway SNOMED Code(s): 474254860, 819180244 ICD Code: Z51.11 - ENCOUNTER FOR ANTINEOPLASTIC CHEMOTHERAPY; Z51.5 - ENCOUNTER FOR PALLIATIVE CARE Status: Chronic Current Visit: Yes (11) Rectal cancer SNOMED Code(s): 099036714 ICD Code: C20 - MALIGNANT NEOPLASM OF RECTUM Status: Chronic Current Visit: Yes Problem List Initiated/Reviewed/Updated: Yes Orders Last 24hrs: Active Orders 24 hr Category Date Time Status Patient Status [ADT] Stat ADT 01/02/18 13:11 Active Intake and Output [RC] QSHIFT Care 01/02/18 13:48 Active Oxygen Therapy [RC] PRN Care 01/02/18 13:48 Active Up With Assistance [RC] ASDIRECTED Care 01/02/18 13:47 Active VTE/DVT Education [RC] PER UNIT ROUTINE Care 01/02/18 13:48 Active Vital Signs [RC] Q4H Care 01/02/18 13:48 Active Consult to Environmental Monitoring Specialist [CONS] Routine Cons 01/02/18 13:47 Active Regular Diet [DIET] Diet 01/02/18 Dinner Active BASIC METABOLIC PANEL,BMP [CHEM] AM Lab 01/03/18 05:11 Ordered CBC WITH AUTO DIFF [HEME] AM Lab 01/03/18 05:11 Ordered MAGNESIUM [CHEM] AM Lab 01/03/18 05:11 Ordered UA W/MICROSCOPIC [URIN] Stat Lab 01/02/18 11:39 Ordered Acetaminophen [Tylenol] Med 01/02/18 13:47 Active 650 mg PO Q4H PRN Heparin Sodium Med 01/02/18 21:00 Active 5,000 units SUBCUT Q12HR Lactated Ringers [Ringers, Lactated] 1,000 ml Med 01/02/18 14:00 Active IV ASDIRECTED Magnesium Sulfate [Magnesium Sulfate 50%] 1 gm Med 01/03/18 09:00 Active Sodium Chloride 0.9% [Normal Saline] 50 ml IV DAILY Magnesium Sulfate/Water [Magnesium Sulfate 2 GM in Med 01/02/18 13:55 Ordered Water 50 ML] 2 gm Premix Bag 1 bag IV ONETIME Ondansetron [Zofran] Med 01/02/18 13:47 Active 4 mg IVPUSH Q4H PRN Potassium Chloride [Klor-Con M20] Med 01/02/18 15:00 Once 40 meq PO ONETIME ONE Medication Orders Acetaminophen (Tylenol) 650 mg PO Q4H PRN PRN Reason: Pain (mild 1-3) Heparin Sodium (Porcine) (Heparin Sodium) 5,000 units SUBCUT Q12HR [facility] Magnesium Sulfate 1 gm/ Sodium (Chloride) 52 mls @ 52 mls/hr IV DAILY [facility] Last Admin: 01/02/18 13:00 Dose: 52 mls/hr Lactated Ringer's (Ringers, Lactated) 1,000 mls @ 125 mls/hr IV ASDIRECTED [facility] Magnesium Sulfate 2 gm/ Premix 50 mls @ 50 mls/hr IV ONETIME ONE Stop: 01/02/18 14:54 Ondansetron HCl (Zofran) 4 mg IVPUSH Q4H PRN PRN Reason: Nausea Potassium Chloride (Klor-Con M20) 40 meq PO ONETIME ONE Stop: 01/02/18 15:01 Assessment/Plan Comment:: This 67 year old male admitted with dehydration and diarrhea who is currently receiving palliative chemotherapy for Stage IV metastatic rectal cancer. 1. Dehydration: Given 2 L since arrival to ED. Will continue LR 125 now overnight and monitor. 2. Diarrhea: Will obtain stool samples. If no risk of infectious will give Imodium. 3. Hypokalemia/hypomagnesemia: Supplement with another K+ 40 MEQ this afternoon and will give another 2 gm IV today of Magnesium. 4. Oral Candidiasis: Will treat with magic Mouth Wash swish and swallow. Monitor. 5. Rectal cancer: Stage IV with metastases to lung. Hold oral chemotherapy for now. Will see Dr Malagon on . Will consult Environmental Monitoring Specialist for diet recommendations and education. VTE prophylaxis: Heparin Q12hr Dispo: 1 day. <Zoe Maria - Last Filed: 01/03/18 00:58> H&P History of Present Illness - General Admit Problem/Dx: Admission Diagnosis/Problem Admission Diagnosis/Problem Dehydration Exam - Vital Signs Vital Signs: Last Vital Signs Temp 97.7 F 01/02/18 20:00 Pulse 82 01/02/18 20:00 Resp 18 01/02/18 20:00 BP 106/75 01/02/18 20:00 Pulse Ox 94 L 01/02/18 20:00 Orthostatic Blood Pressure [ 100/55 Sitting] Orthostatic Blood Pressure [ 106/63 Supine] - Patient Data Lab Results Last 24 hrs: Laboratory Results - last 24 hr 01/02/18 01/02/18 Range/Units 10:00 13:55 Magnesium 1.3 L (1.5-2.0) mg/dL Urine Color YELLOW Urine Appearance CLEAR Urine pH 6.0 (5.0-8.0) Ur Specific [place] 1.025 (1.001-1.035) Urine Protein 30 (NEGATIVE) mg/dL Urine Glucose (UA) NEGATIVE (NEGATIVE) mg/dL Urine Ketones NEGATIVE (NEGATIVE) mg/dL Urine Occult Blood TRACE-INTACT (NEGATIVE) Urine Nitrite NEGATIVE (NEGATIVE) Urine Bilirubin SMALL H (NEGATIVE) Urine Ictotest NEGATIVE Urine Urobilinogen 0.2 (<2.0) EU/dL Ur Leukocyte Esterase NEGATIVE (NEGATIVE) Urine RBC 0-2 (0-2/HPF) Urine WBC 0-1 (0-5/HPF) Ur Epithelial Cells OCCASIONAL (NONE-FEW) Urine Bacteria FEW (NEGATIVE) Urine Mucus LIGHT (NONE-MOD) [place] Results Last 24 hrs: Microbiology 01/02/18 14:54 Clostridium difficile Toxin A & B - Final Stool / Feces Negative for C.Diff Toxin/AG Stool for WBCs - Final POSITIVE FOR WBC'S 01/02/18 14:54 Campylobacter Antigen Assay - Final Stool / Feces NEGATIVE CAMPYLOBACTER AG Orders Last 24hrs: Active Orders 24 hr Category Date Time Status Patient Status [ADT] Stat ADT 01/02/18 13:11 Active Intake and Output [RC] Q12H Care 01/02/18 13:48 Active Oxygen Therapy [RC] PRN Care 01/02/18 13:48 Active Up With Assistance [RC] ASDIRECTED Care 01/02/18 13:47 Active VTE/DVT Education [RC] PER UNIT ROUTINE Care 01/02/18 13:48 Active Vital Signs [RC] Q4H Care 01/02/18 13:48 Active Consult to Environmental Monitoring Specialist [CONS] Routine Cons 01/02/18 13:47 Active Regular Diet [DIET] Diet 01/02/18 Dinner Active BASIC METABOLIC PANEL,BMP [CHEM] AM Lab 01/03/18 05:11 Ordered CBC WITH AUTO DIFF [HEME] AM Lab 01/03/18 05:11 Ordered CDIFF TOX A+B [OP] Routine Lab 01/02/18 14:54 COMP CULTURE STOOL + CAMPY+SHIGATOX [RM] Routine Lab 01/02/18 14:54 Ordered MAGNESIUM [CHEM] AM Lab 01/03/18 05:11 Ordered WBC, STOOL [OP] Routine Lab 01/02/18 14:54 COMP Acetaminophen [Tylenol] Med 01/02/18 13:47 Active 650 mg PO Q4H PRN Allopurinol [Zyloprim] Med 01/03/18 09:00 Active 100 mg PO DAILY Atropine/Diphenoxylate [Lomotil 0.025-2.5 MG] Med 01/02/18 16:30 Active 1 tab PO QID PRN Bismuth Subsalicylate [Pepto Bismol] Med 01/03/18 00:15 Active 30 ml PO ONETIME Calcium Carbonate/Vitamin D3 [Caltrate 600+D 1500 MG- Med 01/02/18 21:00 Active 400 Units] 1 tab PO BID Ciprofloxacin in D5W [Cipro in D5W 400 MG/200 ML] 400 Med 01/03/18 00:15 Active mg Premix Bag 1 bag IV Q24H Diphenhyd/Lidocaine/Nystatin [Magic Mouthwash] Med 01/02/18 14:36 Active 10 ml PO QID Ferrous Sulfate Med 01/03/18 09:00 Active 325 mg PO DAILY Heparin Sodium Med 01/02/18 21:00 Active 5,000 units SUBCUT Q12HR Lactated Ringers [Ringers, Lactated] 1,000 ml Med 01/02/18 14:00 Active IV ASDIRECTED Levothyroxine Med 01/03/18 07:30 Active 125 mcg PO ACBREAKFAST Magnesium Sulfate [Magnesium Sulfate 50%] 1 gm Med 01/03/18 09:00 Active Sodium Chloride 0.9% [Normal Saline] 50 ml IV DAILY Multivitamins [Tab-A-Heather] Med 01/03/18 09:00 Active 1 tab PO DAILY Ondansetron [Zofran] Med 01/02/18 13:47 Active 4 mg IVPUSH Q4H PRN metroNIDAZOLE/Normal Saline [Flagyl 500 MG in NS 100 ML Med 01/03/18 00:30 Active ] 500 mg Premix Bag 1 bag IV Q8H Resuscitation Status Routine Resus Stat 01/02/18 16:30 Ordered Medication Orders Acetaminophen (Tylenol) 650 mg PO Q4H PRN PRN Reason: Pain (mild 1-3) Allopurinol (Zyloprim) 100 mg PO DAILY CONSUELO Bismuth Subsalicylate (Pepto Bismol) 30 ml PO ONETIME CONSUELO Calcium Carbonate (Caltrate 600+D 1500 Mg-400 Units) 1 tab PO BID CONSUELO Last Admin: 04/24/18 20:16 Dose: 1 tab Diphenhydramine/Nystatin/Lidocaine (Magic Mouthwash) 10 ml PO QID CONSUELO Last Admin: 01/02/18 17:13 Dose: Admin: 01/02/18 15:15 Dose: 10 ml Diphenoxylate HCl/Atropine (Lomotil 0.025-2.5 Mg) 1 tab PO QID PRN PRN Reason: loose stool Last Admin: 01/02/18 17:37 Dose: 1 tab Ferrous Sulfate (Ferrous Sulfate) 325 mg PO DAILY [facility] Heparin Sodium (Porcine) (Heparin Sodium) 5,000 units SUBCUT Q12HR [facility] Last Admin: 01/02/18 20:16 Dose: 5,000 units Magnesium Sulfate 1 gm/ Sodium (Chloride) 52 mls @ 52 mls/hr IV DAILY [facility] Last Admin: 01/02/18 13:00 Dose: 52 mls/hr Lactated Ringer's (Ringers, Lactated) 1,000 mls @ 125 mls/hr IV ASDIRECTED [facility] Last Admin: 01/02/18 23:33 Dose: 125 mls/hr Infusion: 01/02/18 22:23 Dose: 125 mls/hr Admin: 01/02/18 14:23 Dose: 125 mls/hr Ciprofloxacin/Dextrose 400 mg/ (Premix) 200 mls @ 200 mls/hr IV Q24H [facility] Metronidazole 500 mg/ Premix 100 mls @ 100 mls/hr IV Q8H [facility] Levothyroxine Sodium (Levothyroxine) 125 mcg PO ACBREAKFAST [facility] Multivitamins/Minerals/Vitamin C (Tab-A-Heather) 1 tab PO DAILY [facility] Ondansetron HCl (Zofran) 4 mg IVPUSH Q4H PRN PRN Reason: Nausea Last Admin: 01/02/18 18:45 Dose: 4 mg
[2018-01-02] MEDS: Lactated Ringers 1,000 ML IV SCH ×2 (14:23→23:33)
[2018-01-02] MEDS: Diphenhydramine/Lidocaine/Nystatin Suspension 237 ML Bottle PO SCH ×2 (15:15→17:13)
[2018-01-02] MEDS: Atropine/Diphenoxylate 0.025-2.5 MG Tab PO PRN (17:37)
[2018-01-02] MEDS: Ondansetron 4 MG/2 ML SDV IVPUSH PRN (18:45)
[2018-01-02] MEDS: Calcium Carbonate/Vitamin D3 1500 MG-400 Units Tab PO SCH (20:16)
[2018-01-02] MEDS: Heparin Sodium 5,000 Units/ML Vial SUBCUT SCH (20:16)
[2018-01-03] MEDS ORDERED: metroNIDAZOLE/Normal Saline 500 MG in Premix Bag 1 BAG IV ONE (00:11)
[2018-01-03] MEDS ORDERED: predniSONE 20 MG Tab PO SCH (00:15)
[2018-01-03] MEDS ORDERED: Bismuth Subsalicylate 262 MG/15 ML Susp 236 ML Bottle PO SCH (00:15)
[2018-01-03] MEDS ORDERED: Ciprofloxacin in D5W 400 MG in Premix Bag 1 BAG IV SCH ×2 (00:15)
[2018-01-03] MEDS: Diphenhydramine/Lidocaine/Nystatin Suspension 237 ML Bottle PO SCH ×4 (00:57→19:32)
[2018-01-03] MEDS: metroNIDAZOLE/Normal Saline 500 MG in Premix Bag 1 BAG IV SCH ×3 (02:06→15:55)
[2018-01-03] MEDS: Levothyroxine 125 MCG Tab PO SCH (06:40)
[2018-01-03 06:44] LABS: CHLORIDE,CL 104 mmol/L (98-107); SODIUM,NA 133 mmol/L (136-148)
[2018-01-03] MEDS: Multivitamin Tab PO SCH (08:39)
[2018-01-03] MEDS: Ferrous Sulfate 325 MG Tab PO SCH (08:39)
[2018-01-03] MEDS: Allopurinol 100 MG Tab PO SCH (08:39)
[2018-01-03] MEDS: Calcium Carbonate/Vitamin D3 1500 MG-400 Units Tab PO SCH ×2 (08:40→20:32)
[2018-01-03] MEDS: Potassium Chloride 20 MEQ Tab.ER PO SCH ×2 (08:50→11:00)
[2018-01-03] MEDS: Heparin Sodium 5,000 Units/ML Vial SUBCUT SCH ×2 (08:52→21:10)
[2018-01-03] MEDS ORDERED: methylPREDNISolone Sodium Succinate 40 MG/1 ML SDV IVPUSH ONE (10:34)
--- NOTE | 2018-01-03 10:34 | PCM.PN ---
- General Info Date of Service: 01/03/18 Admission Dx/Problem (Free Text): Admission Diagnosis/Problem Admission Diagnosis/Problem Dehydration Subjective Update: Feeling better today. Still having diarrhea. No abdominal pain. No chest pain or SOB. Slightly agitation this morning waiting for his ostomy bag to be changed. Functional Status: Reports: Pain Controlled, Tolerating Diet, Ambulating, Urinating - Review of Systems General: Reports: No Symptoms. Denies: Fever, Fatigue, Malaise HEENT: Reports: Sore Throat (reports this is feeling better today.) Pulmonary: Reports: No Symptoms. Denies: Shortness of Breath Cardiovascular: Reports: No Symptoms. Denies: Chest Pain, Edema Gastrointestinal: Reports: Diarrhea. Denies: Abdominal Pain, Melena, Nausea, Vomiting Genitourinary: Reports: No Symptoms. Denies: Dysuria, Frequency, Burning Musculoskeletal: Reports: No Symptoms Skin: Reports: No Symptoms Neurological: Reports: No Symptoms Psychiatric: Reports: Agitation - Patient Data Vitals - Most Recent: Last Vital Signs Temp 98.2 F 01/03/18 04:00 Pulse 77 01/03/18 04:00 Resp 19 01/03/18 04:00 BP 110/68 01/03/18 04:00 Pulse Ox 96 01/03/18 04:00 Orthostatic Blood Pressure [ 100/55 Sitting] Orthostatic Blood Pressure [ 106/63 Supine] Weight - Most Recent: 51.2 kg I&O - Last 24 Hours: Intake & Output 01/02/18 01/03/18 01/03/18 22:59 06:59 14:59 Intake Total 100 700 Output Total 0 3250 Balance 100 -2550 Lab Results Last 24 Hours: Laboratory Results - last 24 hr 01/02/18 01/02/18 01/03/18 Range/Units 10:00 13:55 05:28 WBC 0.71 L (4.0-11.0) K/uL RBC 3.82 L (4.50-5.90) M/uL Hgb 11.1 L (13.0-17.0) g/dL Hct 31.8 L (38.0-50.0) % MCV 83.2 (80.0-98.0) fL MCH 29.1 (27.0-32.0) pg MCHC 34.9 (31.0-37.0) g/dL RDW Std Deviation 43.9 (28.0-62.0) fl RDW Coeff of Rene 15 (11.0-15.0) % Plt Count 83 L (150-400) K/uL MPV 9.20 (7.40-12.00) fL Add Manual Diff YES Neutrophils % (Manual) 26 L (48.0-80.0) % Band Neutrophils % 36 % Lymphocytes % (Manual) 32 (16.0-40.0) % Monocytes % (Manual) 6 (0.0-15.0) % Nucleated RBC % 0.0 /100WBC Absolute Seg Neuts 0.2 L (1.4-5.7) Band Neutrophils # 0.3 Lymphocytes # (Manual) 0.2 L (0.6-2.4) Monocytes # (Manual) 0.0 (0.0-0.8) Nucleated RBCs # 0 K/uL Sodium (136-148) mmol/L Potassium (3.5-5.1) mmol/L Chloride (98-107) mmol/L Carbon Dioxide (21.0-32.0) mmol/L BUN (7.0-18.0) mg/dL Creatinine (0.8-1.3) mg/dL Est Cr Clr Drug Dosing mL/min Estimated GFR (MDRD) ml/min Glucose (74-106) mg/dL Calcium (8.5-10.1) mg/dL Magnesium 1.3 L (1.5-2.0) mg/dL Urine Color YELLOW Urine Appearance CLEAR Urine pH 6.0 (5.0-8.0) Ur Specific [place] 1.025 (1.001-1.035) Urine Protein 30 (NEGATIVE) mg/dL Urine Glucose (UA) NEGATIVE (NEGATIVE) mg/dL Urine Ketones NEGATIVE (NEGATIVE) mg/dL Urine Occult Blood TRACE-INTACT (NEGATIVE) Urine Nitrite NEGATIVE (NEGATIVE) Urine Bilirubin SMALL H (NEGATIVE) Urine Ictotest NEGATIVE Urine Urobilinogen 0.2 (<2.0) EU/dL Ur Leukocyte Esterase NEGATIVE (NEGATIVE) Urine RBC 0-2 (0-2/HPF) Urine WBC 0-1 (0-5/HPF) Ur Epithelial Cells OCCASIONAL (NONE-FEW) Urine Bacteria FEW (NEGATIVE) Urine Mucus LIGHT (NONE-MOD) 01/03/18 Range/Units 05:28 WBC (4.0-11.0) K/uL RBC (4.50-5.90) M/uL Hgb (13.0-17.0) g/dL Hct (38.0-50.0) % MCV (80.0-98.0) fL MCH (27.0-32.0) pg MCHC (31.0-37.0) g/dL RDW Std Deviation (28.0-62.0) fl RDW Coeff of Rene (11.0-15.0) % Plt Count (150-400) K/uL MPV (7.40-12.00) fL Add Manual Diff Neutrophils % (Manual) (48.0-80.0) % Band Neutrophils % % Lymphocytes % (Manual) (16.0-40.0) % Monocytes % (Manual) (0.0-15.0) % Nucleated RBC % /100WBC Absolute Seg Neuts (1.4-5.7) Band Neutrophils # Lymphocytes # (Manual) (0.6-2.4) Monocytes # (Manual) (0.0-0.8) Nucleated RBCs # K/uL Sodium 133 L (136-148) mmol/L Potassium 3.0 L (3.5-5.1) mmol/L Chloride 104 (98-107) mmol/L Carbon Dioxide 20.2 L (21.0-32.0) mmol/L BUN 33 H (7.0-18.0) mg/dL Creatinine 1.2 (0.8-1.3) mg/dL Est Cr Clr Drug Dosing 42.67 mL/min Estimated GFR (MDRD) > 60.0 ml/min Glucose 91 (74-106) mg/dL Calcium 7.8 L (8.5-10.1) mg/dL Magnesium 1.7 (1.5-2.0) mg/dL Urine Color Urine Appearance Urine pH (5.0-8.0) Ur Specific [place] (1.001-1.035) Urine Protein (NEGATIVE) mg/dL Urine Glucose (UA) (NEGATIVE) mg/dL Urine Ketones (NEGATIVE) mg/dL Urine Occult Blood (NEGATIVE) Urine Nitrite (NEGATIVE) Urine Bilirubin (NEGATIVE) Urine Ictotest Urine Urobilinogen (<2.0) EU/dL Ur Leukocyte Esterase (NEGATIVE) Urine RBC (0-2/HPF) Urine WBC (0-5/HPF) Ur Epithelial Cells (NONE-FEW) Urine Bacteria (NEGATIVE) Urine Mucus (NONE-MOD) [place] Results Last 24 Hours: Microbiology 01/02/18 14:54 Campylobacter Antigen Assay - Final Stool / Feces NEGATIVE CAMPYLOBACTER AG - Final NEGATIVE FOR SHIGA TOXIN 1 - Final NEGATIVE FOR SHIGA TOXIN 2 01/02/18 14:54 Clostridium difficile Toxin A & B - Final Stool / Feces Negative for C.Diff Toxin/AG Stool for WBCs - Final POSITIVE FOR WBC'S Med Orders - Current: Current Medications Acetaminophen (Tylenol) 650 mg PO Q4H PRN PRN Reason: Pain (mild 1-3) Allopurinol (Zyloprim) 100 mg PO DAILY [facility] Last Admin: 01/03/18 08:39 Dose: 100 mg Bismuth Subsalicylate (Pepto Bismol) 30 ml PO ONETIME [facility] Last Admin: 01/03/18 01:18 Dose: 30 ml Calcium Carbonate (Caltrate 600+D 1500 Mg-400 Units) 1 tab PO BID [facility] Last Admin: 01/03/18 08:40 Dose: 1 tab Diphenhydramine/Nystatin/Lidocaine (Magic Mouthwash) 10 ml PO QID [facility] Last Admin: 01/03/18 05:32 Dose: 10 ml Diphenoxylate HCl/Atropine (Lomotil 0.025-2.5 Mg) 1 tab PO QID PRN PRN Reason: loose stool Last Admin: 01/02/18 17:37 Dose: 1 tab Ferrous Sulfate (Ferrous Sulfate) 325 mg PO DAILY [facility] Last Admin: 01/03/18 08:39 Dose: 325 mg Heparin Sodium (Porcine) (Heparin Sodium) 5,000 units SUBCUT Q12HR [facility] Last Admin: 01/03/18 08:52 Dose: Not Given Lactated Ringer's (Ringers, Lactated) 1,000 mls @ 125 mls/hr IV ASDIRECTED [facility] Last Admin: 01/02/18 23:33 Dose: 125 mls/hr Ciprofloxacin/Dextrose 400 mg/ (Premix) 200 mls @ 200 mls/hr IV Q24H [facility] Last Infusion: 01/03/18 02:03 Dose: Infused Metronidazole 500 mg/ Premix 100 mls @ 100 mls/hr IV Q8H [facility] Last Admin: 01/03/18 08:13 Dose: 100 mls/hr Levothyroxine Sodium (Levothyroxine) 125 mcg PO ACBREAKFAST [facility] Last Admin: 01/03/18 06:40 Dose: 125 mcg Multivitamins/Minerals/Vitamin C (Tab-A-Heather) 1 tab PO DAILY [facility] Last Admin: 01/03/18 08:39 Dose: 1 tab Ondansetron HCl (Zofran) 4 mg IVPUSH Q4H PRN PRN Reason: Nausea Last Admin: 01/02/18 18:45 Dose: 4 mg Potassium Chloride (Klor-Con M20) 40 meq PO BID@0900,1200 [facility] Stop: 01/03/18 12:01 Last Admin: 01/03/18 08:50 Dose: 40 meq Discontinued Medications Sodium Chloride (Normal Saline) 1,000 mls @ 999 mls/hr IV STAT ONE Stop: 01/02/18 12:41 Last Admin: 01/02/18 11:53 Dose: 999 mls/hr Magnesium Sulfate 1 gm/ Sodium (Chloride) 52 mls @ 52 mls/hr IV DAILY [facility] Last Admin: 01/02/18 13:00 Dose: 52 mls/hr Magnesium Sulfate 2 gm/ Premix 50 mls @ 50 mls/hr IV ONETIME ONE Stop: 01/02/18 14:54 Last Admin: 01/02/18 14:25 Dose: 50 mls/hr Metronidazole 500 mg/ Premix 100 mls @ 100 mls/hr IV ONETIME ONE Stop: 01/03/18 01:10 Last Admin: 01/03/18 01:50 Dose: Not Given Magnesium Sulfate (Magnesium Sulfate 50%) 1 gm IV ONETIME ONE Stop: 01/02/18 12:38 Last Admin: 01/02/18 13:01 Dose: Not Given Potassium Chloride (Klor-Con M20) 40 meq PO ONETIME ONE Stop: 01/02/18 12:38 Last Admin: 01/02/18 12:58 Dose: 40 meq Potassium Chloride (Klor-Con M20) 40 meq PO ONETIME ONE Stop: 01/02/18 15:01 Last Admin: 01/02/18 14:25 Dose: 40 meq Prednisone (Prednisone) 20 mg PO ASDIRECTED [facility] - Exam General: Alert, Oriented, Cooperative, No Acute Distress HEENT: Mucous Membr. Moist/[place] Neck: Supple Lungs: Clear to Auscultation, Normal Respiratory Effort Cardiovascular: Regular Rate, Regular Rhythm GI/Abdominal Exam: Normal Bowel Sounds, Soft, Non-Tender, No Organomegaly, No Distention, No Abnormal Bruit, No Mass, Pelvis Stable, Other (liquid brown diarrhea noted to colostomy bag) Extremities: Normal Inspection, Normal Range of Motion, Non-Tender, No Pedal Edema, Normal Capillary Refill Neurological: No New Focal Deficit Psy/Mental Status: Alert, Normal Affect, Normal Mood - Problem List & Annotations (1) Dehydration SNOMED Code(s): 87567247 Code(s): E86.0 - DEHYDRATION Status: Acute Current Visit: Yes (2) Neutropenia SNOMED Code(s): 626926235 Code(s): D70.9 - NEUTROPENIA, UNSPECIFIED Status: Acute Current Visit: Yes (3) Diarrhea SNOMED Code(s): 64445600 Code(s): R19.7 - DIARRHEA, UNSPECIFIED Status: Acute Current Visit: Yes Qualifiers: Diarrhea type: unspecified type Qualified Code(s): R19.7 - Diarrhea, unspecified (4) Oral candidiasis SNOMED Code(s): 47390337 Code(s): B37.0 - CANDIDAL STOMATITIS Status: Acute Current Visit: Yes (5) Hypokalemia SNOMED Code(s): 27051686 Code(s): E87.6 - HYPOKALEMIA Status: Acute Current Visit: Yes (6) Hypomagnesemia SNOMED Code(s): 149195563 Code(s): E83.42 - HYPOMAGNESEMIA Status: Acute Current Visit: Yes (7) Hx of thyroid cancer SNOMED Code(s): 395677297 Code(s): Z85.850 - PERSONAL HISTORY OF MALIGNANT NEOPLASM OF THYROID Status : Chronic Current Visit: Yes (8) Tobacco abuse SNOMED Code(s): 378662719 Code(s): Z72.0 - TOBACCO USE Status: Chronic Current Visit: Yes (9) Gout SNOMED Code(s): 23106880 Code(s): M10.9 - GOUT, UNSPECIFIED Status: Chronic Current Visit: Yes Qualifiers: Gout site: unspecified site Chronicity: chronic (10) Colostomy in place SNOMED Code(s): 737937695, 837368497 Code(s): Z93.3 - COLOSTOMY STATUS Status: Chronic Current Visit: Yes (11) Palliative chemotherapy underway SNOMED Code(s): 364033049, 840094206 Code(s): Z51.11 - ENCOUNTER FOR ANTINEOPLASTIC CHEMOTHERAPY; Z51.5 - ENCOUNTER FOR PALLIATIVE CARE Status: Chronic Current Visit: Yes (12) Rectal cancer SNOMED Code(s): 995077336 Code(s): C20 - MALIGNANT NEOPLASM OF RECTUM Status: Chronic Current Visit : Yes - Problem List Review Problem List Initiated/Reviewed/Updated: Yes - My Orders Last 24 Hours: My Active Orders 01/02/18 13:47 Consult to Public Housing Manager [CONS] Routine Acetaminophen [Tylenol] 650 mg PO Q4H PRN Ondansetron [Zofran] 4 mg IVPUSH Q4H PRN 01/02/18 13:48 Intake and Output [RC] Q12H Oxygen Therapy [RC] PRN Vital Signs [RC] Q4H 01/02/18 14:00 Lactated Ringers [Ringers, Lactated] 1,000 ml IV ASDIRECTED 01/02/18 14:36 Diphenhyd/Lidocaine/Nystatin [Magic Mouthwash] 10 ml PO QID 01/02/18 14:54 CDIFF TOX A+B [OP] Routine CULTURE STOOL + CAMPY+SHIGATOX [RM] Routine WBC, STOOL [OP] Routine 01/02/18 16:30 Atropine/Diphenoxylate [Lomotil 0.025-2.5 MG] 1 tab PO QID PRN Resuscitation Status Routine 01/02/18 21:00 Calcium Carbonate/Vitamin D3 [Caltrate 600+D 1500 MG-400 Units] 1 tab PO BID Heparin Sodium 5,000 units SUBCUT Q12HR 01/02/18 Dinner Regular Diet [DIET] 01/03/18 07:30 Levothyroxine 125 mcg PO ACBREAKFAST 01/03/18 09:00 Allopurinol [Zyloprim] 100 mg PO DAILY Ferrous Sulfate 325 mg PO DAILY Multivitamins [Tab-A-Heather] 1 tab PO DAILY Potassium Chloride [Klor-Con M20] 40 meq PO BID@0900,1200 - Plan Plan:: This 67 year old male admitted with dehydration and diarrhea who is currently receiving palliative chemotherapy for Stage IV metastatic rectal cancer. 1. Dehydration: Improving. NANCY much improved from yesterday. Will continue LR 125. 2. Diarrhea: Continues, but reports slightly improved. Stool cultures negative, WBC positive. Ciprofloxacin and Flagyl started. Due to Neutropenia will change to Levaquin 500 mg and continue Flagyl. 3. Hypokalemia/hypomagnesemia: No real change, continue to supplement with K+ 40 MEQ BID and will give 4 gm IV today of Magnesium. Will recheck BMP this afternoon. 4. Oral Candidiasis: Improving. Will treat with magic Mouth Wash swish and swallow. Monitor. 5. Neutropenia: ANC 0 today. Have a call into Oncology to speak with Nadine Giles NP. Will place on neutropenic precautions. Afebrile. Continue to monitor. Dr Maria ordered Neupogen 300 mcg today. 6. Rectal cancer: Stage IV with metastases to lung. Hold oral chemotherapy for now. Will see Dr Malagon on . Will consult Public Housing Manager for diet recommendations and education. VTE prophylaxis: Heparin Q12hr Dispo: 1 day.
[2018-01-03] MEDS: Loperamide 2 MG Cap PO PRN ×3 (11:20→20:32)
[2018-01-03] MEDS: Levofloxacin/Dextrose 5%-Water 500 MG in Premix Bag 1 BAG IV SCH (11:21)
[2018-01-03] MEDS: Lactated Ringers 1,000 ML IV SCH (11:31)
[2018-01-03] MEDS: Filgrastim 300 MCG/ML SDV SUBCUT SCH ×2 (11:55→15:18)
[2018-01-03 13:54] LABS: CHLORIDE,CL 103 mmol/L (98-107); SODIUM,NA 133 mmol/L (136-148)
[2018-01-03] MEDS ORDERED: Sodium Chloride 0.9% with KCl 1,000 ML IV SCH (14:30)
[2018-01-03] MEDS ORDERED: Calcium Carbonate 500 MG Tab.Chew PO PRN (20:01)
[2018-01-04] MEDS: Lactated Ringers 1,000 ML IV SCH ×3 (00:17→16:53)
[2018-01-04] MEDS: Diphenhydramine/Lidocaine/Nystatin Suspension 237 ML Bottle PO SCH ×5 (00:20→23:14)
[2018-01-04] MEDS: metroNIDAZOLE/Normal Saline 500 MG in Premix Bag 1 BAG IV SCH ×4 (00:23→23:45)
[2018-01-04] MEDS: Atropine/Diphenoxylate 0.025-2.5 MG Tab PO PRN ×3 (04:16→23:13)
[2018-01-04] MEDS: Ondansetron 4 MG/2 ML SDV IVPUSH PRN ×2 (05:18→10:45)
[2018-01-04] MEDS: Levothyroxine 125 MCG Tab PO SCH (06:34)
[2018-01-04 06:54] LABS: CHLORIDE,CL 107 mmol/L (98-107); SODIUM,NA 140 mmol/L (136-148)
[2018-01-04] MEDS ORDERED: Potassium Chloride 20 MEQ Tab.ER PO ONE (08:03)
[2018-01-04] MEDS: Multivitamin Tab PO SCH (08:24)
[2018-01-04] MEDS: Calcium Carbonate/Vitamin D3 1500 MG-400 Units Tab PO SCH ×2 (08:24→21:33)
[2018-01-04] MEDS: Ferrous Sulfate 325 MG Tab PO SCH (08:24)
[2018-01-04] MEDS: Heparin Sodium 5,000 Units/ML Vial SUBCUT SCH ×2 (08:25→21:33)
[2018-01-04] MEDS: Allopurinol 100 MG Tab PO SCH (08:25)
--- NOTE | 2018-01-04 09:59 | PCM.PN ---
- General Info Date of Service: 01/04/18 Admission Dx/Problem (Free Text): Admission Diagnosis/Problem Admission Diagnosis/Problem Dehydration Subjective Update: Doing a little better today, but continues to have large liquid stools. Appetite improving slightly, but still not eating much. No chest pain, SOB or abdominal pain. Functional Status: Reports: Pain Controlled, Tolerating Diet, Ambulating, Urinating - Review of Systems General: Reports: Malaise. Denies: Fever, Weakness, Fatigue HEENT: Reports: No Symptoms. Denies: Headaches, Sore Throat, Visual Changes Pulmonary: Reports: No Symptoms. Denies: Shortness of Breath Cardiovascular: Reports: No Symptoms. Denies: Chest Pain Gastrointestinal: Reports: No Symptoms. Denies: Abdominal Pain, Nausea, Vomiting Genitourinary: Reports: No Symptoms. Denies: Dysuria, Frequency, Burning Musculoskeletal: Reports: No Symptoms. Denies: Neck Pain Skin: Reports: No Symptoms Neurological: Reports: No Symptoms. Denies: Confusion Psychiatric: Reports: No Symptoms. Denies: Confusion - Patient Data Vitals - Most Recent: Last Vital Signs Temp 98.1 F 01/04/18 08:00 Pulse 72 01/04/18 08:00 Resp 16 01/04/18 08:00 BP 105/73 01/04/18 08:00 Pulse Ox 94 L 01/04/18 08:00 Orthostatic Blood Pressure [ 100/55 Sitting] Orthostatic Blood Pressure [ 106/63 Supine] Weight - Most Recent: 53.206 kg I&O - Last 24 Hours: Intake & Output 01/03/18 01/04/18 01/04/18 22:59 06:59 14:59 Intake Total 1814 5554 Output Total 1999 4400 Balance -186 1154 Lab Results Last 24 Hours: Laboratory Results - last 24 hr 01/03/18 01/04/18 01/04/18 Range/Units 13:15 05:43 05:43 WBC 8.11 (4.0-11.0) K/uL RBC 3.99 L (4.50-5.90) M/uL Hgb 11.9 L (13.0-17.0) g/dL Hct 32.9 L (38.0-50.0) % MCV 82.5 (80.0-98.0) fL MCH 29.8 (27.0-32.0) pg MCHC 36.2 (31.0-37.0) g/dL RDW Std Deviation 44.0 (28.0-62.0) fl RDW Coeff of Rene 15 (11.0-15.0) % Plt Count 126 L (150-400) K/uL MPV 9.60 (7.40-12.00) fL Neutrophils % (Manual) 72 (48.0-80.0) % Band Neutrophils % 18 % Lymphocytes % (Manual) 6 L (16.0-40.0) % Monocytes % (Manual) 4 (0.0-15.0) % Nucleated RBC % 0.0 /100WBC Absolute Seg Neuts 5.8 H (1.4-5.7) Band Neutrophils # 1.5 Lymphocytes # (Manual) 0.5 L (0.6-2.4) Monocytes # (Manual) 0.3 (0.0-0.8) Sodium 133 L 140 (136-148) mmol/L Potassium 3.0 L 3.5 (3.5-5.1) mmol/L Chloride 103 107 (98-107) mmol/L Carbon Dioxide 23.6 24.4 (21.0-32.0) mmol/L BUN 26 H 22 H (7.0-18.0) mg/dL Creatinine 1.1 1.1 (0.8-1.3) mg/dL Est Cr Clr Drug Dosing 46.55 48.37 mL/min Estimated GFR (MDRD) > 60.0 > 60.0 ml/min Glucose 100 117 H (74-106) mg/dL Calcium 8.2 L 9.1 (8.5-10.1) mg/dL Magnesium 1.7 (1.5-2.0) mg/dL 01/04/18 Range/Units 05:43 WBC (4.0-11.0) K/uL RBC (4.50-5.90) M/uL Hgb (13.0-17.0) g/dL Hct (38.0-50.0) % MCV (80.0-98.0) fL MCH (27.0-32.0) pg MCHC (31.0-37.0) g/dL RDW Std Deviation (28.0-62.0) fl RDW Coeff of Rene (11.0-15.0) % Plt Count (150-400) K/uL MPV (7.40-12.00) fL Neutrophils % (Manual) (48.0-80.0) % Band Neutrophils % % Lymphocytes % (Manual) (16.0-40.0) % Monocytes % (Manual) (0.0-15.0) % Nucleated RBC % /100WBC Absolute Seg Neuts (1.4-5.7) Band Neutrophils # Lymphocytes # (Manual) (0.6-2.4) Monocytes # (Manual) (0.0-0.8) Sodium (136-148) mmol/L Potassium (3.5-5.1) mmol/L Chloride (98-107) mmol/L Carbon Dioxide (21.0-32.0) mmol/L BUN (7.0-18.0) mg/dL Creatinine (0.8-1.3) mg/dL Est Cr Clr Drug Dosing mL/min Estimated GFR (MDRD) ml/min Glucose (74-106) mg/dL Calcium (8.5-10.1) mg/dL Magnesium 1.6 (1.5-2.0) mg/dL [place] Results Last 24 Hours: Microbiology 01/02/18 14:54 Stool Culture - Final Stool / Feces NO SALMONELLA, SHIGELLA,OR E.COLI O157 ISOLATED Campylobacter Antigen Assay - Final NEGATIVE CAMPYLOBACTER AG - Final NEGATIVE FOR SHIGA TOXIN 1 - Final NEGATIVE FOR SHIGA TOXIN 2 Med Orders - Current: Current Medications Acetaminophen (Tylenol) 650 mg PO Q4H PRN PRN Reason: Pain (mild 1-3) Allopurinol (Zyloprim) 100 mg PO DAILY [facility] Last Admin: 01/04/18 08:25 Dose: 100 mg Bismuth Subsalicylate (Pepto Bismol) 30 ml PO ONETIME [facility] Last Admin: 01/03/18 01:18 Dose: 30 ml Calcium Carbonate (Caltrate 600+D 1500 Mg-400 Units) 1 tab PO BID [facility] Last Admin: 01/04/18 08:24 Dose: 1 tab Calcium Carbonate/Glycine (Tums) 500 mg PO Q4H PRN PRN Reason: Indigestion Last Admin: 01/04/18 04:11 Dose: 500 mg Diphenhydramine/Nystatin/Lidocaine (Magic Mouthwash) 10 ml PO QID [facility] Last Admin: 01/04/18 06:34 Dose: 10 ml Diphenoxylate HCl/Atropine (Lomotil 0.025-2.5 Mg) 1 tab PO QID PRN PRN Reason: loose stool Last Admin: 01/04/18 04:16 Dose: 1 tab Ferrous Sulfate (Ferrous Sulfate) 325 mg PO DAILY [facility] Last Admin: 01/04/18 08:24 Dose: 325 mg Heparin Sodium (Porcine) (Heparin Sodium) 5,000 units SUBCUT Q12HR [facility] Last Admin: 01/04/18 08:25 Dose: 5,000 units Lactated Ringer's (Ringers, Lactated) 1,000 mls @ 125 mls/hr IV ASDIRECTED [facility] Last Admin: 01/04/18 06:35 Dose: 125 mls/hr Metronidazole 500 mg/ Premix 100 mls @ 100 mls/hr IV Q8H [facility] Last Admin: 01/04/18 08:25 Dose: 100 mls/hr Levofloxacin/Dextrose 500 mg/ (Premix) 100 mls @ 100 mls/hr IV Q24H [facility] Last Admin: 01/03/18 11:21 Dose: 100 mls/hr Levothyroxine Sodium (Levothyroxine) 125 mcg PO ACBREAKFAST [facility] Last Admin: 01/04/18 06:34 Dose: 125 mcg Loperamide HCl (Imodium) 2 mg PO ASDIRECTED PRN PRN Reason: Diarrhea Last Admin: 01/03/18 20:32 Dose: 2 mg Multivitamins/Minerals/Vitamin C (Tab-A-Heather) 1 tab PO DAILY [facility] Last Admin: 01/04/18 08:24 Dose: 1 tab Ondansetron HCl (Zofran) 4 mg IVPUSH Q4H PRN PRN Reason: Nausea Last Admin: 01/04/18 05:18 Dose: 4 mg Tbo-Filgrastim (Granix) 300 mcg SUBCUT DAILY [facility] Last Admin: 01/04/18 09:29 Dose: 300 mcg Discontinued Medications Filgrastim (Neupogen) 300 mcg SUBCUT DAILY [facility] Last Admin: 01/03/18 15:18 Dose: 300 mcg Sodium Chloride (Normal Saline) 1,000 mls @ 999 mls/hr IV STAT ONE Stop: 01/02/18 12:41 Last Admin: 01/02/18 11:53 Dose: 999 mls/hr Magnesium Sulfate 1 gm/ Sodium (Chloride) 52 mls @ 52 mls/hr IV DAILY [facility] Last Admin: 01/02/18 13:00 Dose: 52 mls/hr Magnesium Sulfate 2 gm/ Premix 50 mls @ 50 mls/hr IV ONETIME ONE Stop: 01/02/18 14:54 Last Admin: 01/02/18 14:25 Dose: 50 mls/hr Ciprofloxacin/Dextrose 400 mg/ (Premix) 200 mls @ 200 mls/hr IV Q24H [facility] Last Infusion: 01/03/18 02:03 Dose: Infused Metronidazole 500 mg/ Premix 100 mls @ 100 mls/hr IV ONETIME ONE Stop: 01/03/18 01:10 Last Admin: 01/03/18 01:50 Dose: Not Given Potassium Chloride/Sodium Chloride (Normal Saline With 40 Meq Kcl) 1,000 mls @ 125 mls/hr IV ASDIRECTED [facility] Stop: 01/03/18 22:29 Last Admin: 01/03/18 15:06 Dose: 125 mls/hr Magnesium Sulfate (Magnesium Sulfate 50%) 1 gm IV ONETIME ONE Stop: 01/02/18 12:38 Last Admin: 01/02/18 13:01 Dose: Not Given Methylprednisolone Sodium Succinate (Solu-Medrol) 40 mg IVPUSH ONETIME ONE Stop: 01/03/18 10:35 Last Admin: 01/03/18 11:00 Dose: 40 mg Potassium Chloride (Klor-Con M20) 40 meq PO ONETIME ONE Stop: 01/02/18 12:38 Last Admin: 01/02/18 12:58 Dose: 40 meq Potassium Chloride (Klor-Con M20) 40 meq PO ONETIME ONE Stop: 01/02/18 15:01 Last Admin: 01/02/18 14:25 Dose: 40 meq Potassium Chloride (Klor-Con M20) 40 meq PO BID@0900,1200 [facility] Stop: 01/03/18 12:01 Last Admin: 01/03/18 11:00 Dose: 40 meq Potassium Chloride (Klor-Con M20) 40 meq PO ONETIME ONE Stop: 01/04/18 08:04 Last Admin: 01/04/18 08:24 Dose: 40 meq Prednisone (Prednisone) 20 mg PO ASDIRECTED [facility] - Exam General: Alert, Oriented, Cooperative, No Acute Distress Neck: Supple Lungs: Clear to Auscultation, Normal Respiratory Effort Cardiovascular: Regular Rate, Regular Rhythm GI/Abdominal Exam: Normal Bowel Sounds, Soft, Non-Tender, No Organomegaly, No Distention, No Abnormal Bruit, No Mass, Pelvis Stable, Other (colostomy intact, recently emptied. But reports not sleeping well due to frequently emptying. ) Extremities: Normal Inspection, Normal Range of Motion, Non-Tender, No Pedal Edema, Normal Capillary Refill Neurological: No New Focal Deficit Psy/Mental Status: Alert, Normal Affect, Normal Mood - Problem List & Annotations (1) Dehydration SNOMED Code(s): 51913001 Code(s): E86.0 - DEHYDRATION Status: Acute Current Visit: Yes (2) Neutropenia SNOMED Code(s): 253488870 Code(s): D70.9 - NEUTROPENIA, UNSPECIFIED Status: Acute Current Visit: Yes (3) Diarrhea SNOMED Code(s): 41841636 Code(s): R19.7 - DIARRHEA, UNSPECIFIED Status: Acute Current Visit: Yes Qualifiers: Diarrhea type: unspecified type Qualified Code(s): R19.7 - Diarrhea, unspecified (4) Oral candidiasis SNOMED Code(s): 55205455 Code(s): B37.0 - CANDIDAL STOMATITIS Status: Acute Current Visit: Yes (5) Hypokalemia SNOMED Code(s): 58997784 Code(s): E87.6 - HYPOKALEMIA Status: Acute Current Visit: Yes (6) Hypomagnesemia SNOMED Code(s): 349036795 Code(s): E83.42 - HYPOMAGNESEMIA Status: Acute Current Visit: Yes (7) Hx of thyroid cancer SNOMED Code(s): 614762854 Code(s): Z85.850 - PERSONAL HISTORY OF MALIGNANT NEOPLASM OF THYROID Status : Chronic Current Visit: Yes (8) Tobacco abuse SNOMED Code(s): 722273267 Code(s): Z72.0 - TOBACCO USE Status: Chronic Current Visit: Yes (9) Gout SNOMED Code(s): 11154635 Code(s): M10.9 - GOUT, UNSPECIFIED Status: Chronic Current Visit: Yes Qualifiers: Gout site: unspecified site Chronicity: chronic (10) Colostomy in place SNOMED Code(s): 612958141, 325390721 Code(s): Z93.3 - COLOSTOMY STATUS Status: Chronic Current Visit: Yes (11) Palliative chemotherapy underway SNOMED Code(s): 300289668, 509940755 Code(s): Z51.11 - ENCOUNTER FOR ANTINEOPLASTIC CHEMOTHERAPY; Z51.5 - ENCOUNTER FOR PALLIATIVE CARE Status: Chronic Current Visit: Yes (12) Rectal cancer SNOMED Code(s): 388250744 Code(s): C20 - MALIGNANT NEOPLASM OF RECTUM Status: Chronic Current Visit : Yes - Problem List Review Problem List Initiated/Reviewed/Updated: Yes - My Orders Last 24 Hours: My Active Orders 01/03/18 09:00 Allopurinol [Zyloprim] 100 mg PO DAILY Ferrous Sulfate 325 mg PO DAILY Multivitamins [Tab-A-Heather] 1 tab PO DAILY 01/03/18 10:43 Loperamide [Imodium] 2 mg PO ASDIRECTED PRN 01/03/18 10:45 Levofloxacin/Dextrose 5%-Water [Levaquin in D5W 500 MG/100 ML] 500 mg Premix Bag 1 bag IV Q24H 01/04/18 09:52 Patient Status [ADT] Stat - Plan Plan:: This 67 year old male admitted with dehydration and diarrhea who is currently receiving palliative chemotherapy for Stage IV metastatic rectal cancer. 1. Dehydration: Improving. NANCY continues to improve. Will continue LR 125. Had over 4000 ml out in diarrhea over 24hrs, with this he is extremely high risk for recurrently dehydration with his rectal cancer and poor appetite. BRAT diet 2. Diarrhea: Continues. Stool cultures negative, WBC positive. Levaquin and Flagyl to be continued. hasn't been given Imodium consistently. Encouraged nursing to be giving this each time he has a stool, up to 8 tabs daily. 3. Hypokalemia/hypomagnesemia: Improved some but will continue to supplement with K+ 40 MEQ BID and will give 2 gm IV today of Magnesium. 4. Oral Candidiasis: Improving. Continue magic Mouth Wash swish and swallow. Monitor. 5. Neutropenia: Improved today after Neupogen yesterday. Spoke with reyes Giles NP who recommended Neupogen for 3-4 days. She will likely see today since he will not be discharged cleve. Continue neutropenic precautions. Afebrile. Continue to monitor. 6. Rectal cancer: Stage IV with metastases to lung. Hold oral chemotherapy for now. VTE prophylaxis: Heparin Q12hr Dispo: Will make inpatient due to continued large amounts of liquids stools. If sent home would be extremely high risk for readmission and recurrent dehydration with NANCY due to his inability to drink and eat enough fluids to keep up with high output diarrhea.
[2018-01-04] MEDS ORDERED: Magnesium Sulfate/Water 2 GM in Premix Bag 1 BAG IV ONE (10:17)
[2018-01-04] MEDS ORDERED: Promethazine 25 MG/ML SDV IM PRN (10:35)
[2018-01-04] MEDS: Levofloxacin/Dextrose 5%-Water 500 MG in Premix Bag 1 BAG IV SCH (12:01)
[2018-01-04] MEDS: Loperamide 2 MG Cap PO PRN ×3 (15:37→21:33)
[2018-01-05] MEDS: Lactated Ringers 1,000 ML IV SCH ×2 (01:59→18:54)
[2018-01-05] MEDS: Atropine/Diphenoxylate 0.025-2.5 MG Tab PO PRN (04:34)
[2018-01-05] MEDS: Loperamide 2 MG Cap PO PRN ×2 (06:27→19:00)
[2018-01-05] MEDS: Diphenhydramine/Lidocaine/Nystatin Suspension 237 ML Bottle PO SCH ×3 (06:27→18:52)
[2018-01-05] MEDS: Levothyroxine 125 MCG Tab PO SCH (06:30)
[2018-01-05 07:00] LABS: CHLORIDE,CL 108 mmol/L (98-107); SODIUM,NA 144 mmol/L (136-148)
[2018-01-05] MEDS ORDERED: Magnesium Sulfate/Water 2 GM in Premix Bag 1 BAG IV ONE (07:51)
[2018-01-05] MEDS ORDERED: Sodium Chloride 0.9% with KCl 1,000 ML IV SCH (08:00)
[2018-01-05] MEDS: Calcium Carbonate/Vitamin D3 1500 MG-400 Units Tab PO SCH ×2 (08:26→21:47)
[2018-01-05] MEDS: Allopurinol 100 MG Tab PO SCH (08:27)
[2018-01-05] MEDS: Multivitamin Tab PO SCH (08:27)
[2018-01-05] MEDS: Potassium Chloride 20 MEQ Tab.ER PO SCH ×2 (08:27→17:22)
[2018-01-05] MEDS: Ferrous Sulfate 325 MG Tab PO SCH (08:27)
[2018-01-05] MEDS: Heparin Sodium 5,000 Units/ML Vial SUBCUT SCH ×2 (08:28→21:48)
--- NOTE | 2018-01-05 08:53 | PCM.PN ---
- General Info Date of Service: 01/05/18 Admission Dx/Problem (Free Text): Admission Diagnosis/Problem Admission Diagnosis/Problem Dehydration Subjective Update: Feeling ok today, continues to have liquid stools. No chest pain, abdominal pain or urinary troubles. He denies nausea today. Eating ok and drinking ok. Functional Status: Reports: Pain Controlled, Tolerating Diet, Ambulating, Urinating - Review of Systems General: Reports: Malaise. Denies: Fever HEENT: Reports: No Symptoms. Denies: Sore Throat, Visual Changes Pulmonary: Reports: No Symptoms. Denies: Shortness of Breath, Cough, Sputum Cardiovascular: Reports: No Symptoms. Denies: Chest Pain, Dyspnea on Exertion, Edema Gastrointestinal: Reports: Diarrhea. Denies: Abdominal Pain, Nausea, Vomiting Genitourinary: Reports: No Symptoms. Denies: Dysuria, Frequency, Burning Musculoskeletal: Reports: No Symptoms. Denies: Neck Pain, Shoulder Pain, Arm Pain Skin: Reports: No Symptoms Neurological: Reports: No Symptoms Psychiatric: Reports: No Symptoms - Patient Data Vitals - Most Recent: Last Vital Signs Temp 98.2 F 01/05/18 08:00 Pulse 62 01/05/18 04:00 Resp 16 01/05/18 08:00 BP 134/82 01/05/18 08:00 Pulse Ox 99 01/05/18 08:00 Orthostatic Blood Pressure [ 100/55 Sitting] Orthostatic Blood Pressure [ 106/63 Supine] Weight - Most Recent: 53.206 kg I&O - Last 24 Hours: Intake & Output 01/04/18 01/05/18 01/05/18 22:59 06:59 14:59 Intake Total 2730 6179 Output Total 2205 9869 Balance 530 -2631 Lab Results Last 24 Hours: Laboratory Results - last 24 hr 01/05/18 01/05/18 Range/Units 06:20 06:20 WBC 13.46 H (4.0-11.0) K/uL RBC 4.26 L (4.50-5.90) M/uL Hgb 12.5 L (13.0-17.0) g/dL Hct 35.1 L (38.0-50.0) % MCV 82.4 (80.0-98.0) fL MCH 29.3 (27.0-32.0) pg MCHC 35.6 (31.0-37.0) g/dL RDW Std Deviation 44.1 (28.0-62.0) fl RDW Coeff of Rene 15 (11.0-15.0) % Plt Count 176 (150-400) K/uL MPV 8.60 (7.40-12.00) fL Add Manual Diff YES Neutrophils % (Manual) 65 (48.0-80.0) % Band Neutrophils % 29 % Lymphocytes % (Manual) 3 L (16.0-40.0) % Monocytes % (Manual) 3 (0.0-15.0) % Nucleated RBC % 0.0 /100WBC Absolute Seg Neuts 8.7 H (1.4-5.7) Band Neutrophils # 3.9 Lymphocytes # (Manual) 0.4 L (0.6-2.4) Monocytes # (Manual) 0.4 (0.0-0.8) Nucleated RBCs # 0 K/uL Sodium 144 (136-148) mmol/L Potassium 3.2 L (3.5-5.1) mmol/L Chloride 108 H (98-107) mmol/L Carbon Dioxide 25.3 (21.0-32.0) mmol/L BUN 18 (7.0-18.0) mg/dL Creatinine 1.2 (0.8-1.3) mg/dL Est Cr Clr Drug Dosing 44.34 mL/min Estimated GFR (MDRD) > 60.0 ml/min Glucose 125 H (74-106) mg/dL Calcium 9.8 (8.5-10.1) mg/dL Magnesium 1.6 (1.5-2.0) mg/dL [place] Results Last 24 Hours: Microbiology 01/02/18 14:54 Stool Culture - Final Stool / Feces NO SALMONELLA, SHIGELLA,OR E.COLI O157 ISOLATED Campylobacter Antigen Assay - Final NEGATIVE CAMPYLOBACTER AG - Final NEGATIVE FOR SHIGA TOXIN 1 - Final NEGATIVE FOR SHIGA TOXIN 2 Med Orders - Current: Current Medications Acetaminophen (Tylenol) 650 mg PO Q4H PRN PRN Reason: Pain (mild 1-3) Allopurinol (Zyloprim) 100 mg PO DAILY [facility] Last Admin: 01/05/18 08:27 Dose: 100 mg Bismuth Subsalicylate (Pepto Bismol) 30 ml PO ONETIME [facility] Last Admin: 01/03/18 01:18 Dose: 30 ml Calcium Carbonate (Caltrate 600+D 1500 Mg-400 Units) 1 tab PO BID [facility] Last Admin: 01/05/18 08:26 Dose: 1 tab Calcium Carbonate/Glycine (Tums) 500 mg PO Q4H PRN PRN Reason: Indigestion Last Admin: 01/04/18 04:11 Dose: 500 mg Diphenhydramine/Nystatin/Lidocaine (Magic Mouthwash) 10 ml PO QID [facility] Last Admin: 01/05/18 06:27 Dose: 10 ml Diphenoxylate HCl/Atropine (Lomotil 0.025-2.5 Mg) 1 tab PO QID PRN PRN Reason: loose stool Last Admin: 01/05/18 04:34 Dose: 1 tab Ferrous Sulfate (Ferrous Sulfate) 325 mg PO DAILY [facility] Last Admin: 01/05/18 08:27 Dose: 325 mg Heparin Sodium (Porcine) (Heparin Sodium) 5,000 units SUBCUT Q12HR [facility] Last Admin: 01/05/18 08:28 Dose: 5,000 units Lactated Ringer's (Ringers, Lactated) 1,000 mls @ 125 mls/hr IV ASDIRECTED [facility] Last Admin: 01/05/18 01:59 Dose: 125 mls/hr Metronidazole 500 mg/ Premix 100 mls @ 100 mls/hr IV Q8H [facility] Last Admin: 01/04/18 23:45 Dose: 100 mls/hr Levofloxacin/Dextrose 500 mg/ (Premix) 100 mls @ 100 mls/hr IV Q24H [facility] Last Admin: 01/04/18 12:01 Dose: 100 mls/hr Magnesium Sulfate 2 gm/ Premix 50 mls @ 50 mls/hr IV ONETIME ONE Stop: 01/05/18 08:50 Last Admin: 01/05/18 08:08 Dose: 50 mls/hr Potassium Chloride/Sodium Chloride (Normal Saline With 40 Meq Kcl) 1,000 mls @ 150 mls/hr IV ASDIRECTED [facility] Stop: 01/05/18 14:39 Levothyroxine Sodium (Levothyroxine) 125 mcg PO ACBREAKFAST [facility] Last Admin: 01/05/18 06:30 Dose: 125 mcg Loperamide HCl (Imodium) 2 mg PO ASDIRECTED PRN PRN Reason: Diarrhea Last Admin: 01/05/18 06:27 Dose: 2 mg Multivitamins/Minerals/Vitamin C (Tab-A-Heather) 1 tab PO DAILY [facility] Last Admin: 01/05/18 08:27 Dose: 1 tab Ondansetron HCl (Zofran) 4 mg IVPUSH Q4H PRN PRN Reason: Nausea Last Admin: 01/04/18 10:45 Dose: 4 mg Potassium Chloride (Klor-Con M20) 40 meq PO BIDMEALS [facility] Stop: 01/05/18 17:01 Last Admin: 01/05/18 08:27 Dose: 40 meq Promethazine HCl (Phenergan) 12.5 mg IM Q6H PRN PRN Reason: Nausea Tbo-Filgrastim (Granix) 300 mcg SUBCUT DAILY [facility] Last Admin: 01/04/18 09:29 Dose: 300 mcg Discontinued Medications Filgrastim (Neupogen) 300 mcg SUBCUT DAILY [facility] Last Admin: 01/03/18 15:18 Dose: 300 mcg Sodium Chloride (Normal Saline) 1,000 mls @ 999 mls/hr IV STAT ONE Stop: 01/02/18 12:41 Last Admin: 01/02/18 11:53 Dose: 999 mls/hr Magnesium Sulfate 1 gm/ Sodium (Chloride) 52 mls @ 52 mls/hr IV DAILY [facility] Last Admin: 01/02/18 13:00 Dose: 52 mls/hr Magnesium Sulfate 2 gm/ Premix 50 mls @ 50 mls/hr IV ONETIME ONE Stop: 01/02/18 14:54 Last Admin: 01/02/18 14:25 Dose: 50 mls/hr Ciprofloxacin/Dextrose 400 mg/ (Premix) 200 mls @ 200 mls/hr IV Q24H [facility] Last Infusion: 01/03/18 02:03 Dose: Infused Metronidazole 500 mg/ Premix 100 mls @ 100 mls/hr IV ONETIME ONE Stop: 01/03/18 01:10 Last Admin: 01/03/18 01:50 Dose: Not Given Potassium Chloride/Sodium Chloride (Normal Saline With 40 Meq Kcl) 1,000 mls @ 125 mls/hr IV ASDIRECTED [facility] Stop: 01/03/18 22:29 Last Admin: 01/03/18 15:06 Dose: 125 mls/hr Magnesium Sulfate 2 gm/ Premix 50 mls @ 50 mls/hr IV ONETIME ONE Stop: 01/04/18 11:16 Last Admin: 01/04/18 10:45 Dose: 50 mls/hr Magnesium Sulfate (Magnesium Sulfate 50%) 1 gm IV ONETIME ONE Stop: 01/02/18 12:38 Last Admin: 01/02/18 13:01 Dose: Not Given Methylprednisolone Sodium Succinate (Solu-Medrol) 40 mg IVPUSH ONETIME ONE Stop: 01/03/18 10:35 Last Admin: 01/03/18 11:00 Dose: 40 mg Potassium Chloride (Klor-Con M20) 40 meq PO ONETIME ONE Stop: 01/02/18 12:38 Last Admin: 01/02/18 12:58 Dose: 40 meq Potassium Chloride (Klor-Con M20) 40 meq PO ONETIME ONE Stop: 01/02/18 15:01 Last Admin: 01/02/18 14:25 Dose: 40 meq Potassium Chloride (Klor-Con M20) 40 meq PO BID@0900,1200 [facility] Stop: 01/03/18 12:01 Last Admin: 01/03/18 11:00 Dose: 40 meq Potassium Chloride (Klor-Con M20) 40 meq PO ONETIME ONE Stop: 01/04/18 08:04 Last Admin: 01/04/18 08:24 Dose: 40 meq Prednisone (Prednisone) 20 mg PO ASDIRECTED [facility] - Exam General: Alert, Oriented, Cooperative, No Acute Distress Neck: Supple Lungs: Clear to Auscultation, Normal Respiratory Effort Cardiovascular: Regular Rate, Regular Rhythm GI/Abdominal Exam: Normal Bowel Sounds, Soft, Non-Tender, No Organomegaly, No Distention, No Abnormal Bruit, No Mass, Pelvis Stable, Other (colostomy conitnues to have brown liquid stool in high amounts) Extremities: Normal Inspection, Normal Range of Motion, Non-Tender, No Pedal Edema, Normal Capillary Refill Neurological: No New Focal Deficit Psy/Mental Status: Alert, Normal Affect, Normal Mood - Problem List & Annotations (1) Dehydration SNOMED Code(s): 78591600 Code(s): E86.0 - DEHYDRATION Status: Acute Current Visit: Yes (2) Neutropenia SNOMED Code(s): 288708250 Code(s): D70.9 - NEUTROPENIA, UNSPECIFIED Status: Resolved Current Visit : Yes Qualifiers: Neutropenia type: secondary to cancer chemotherapy Qualified Code(s): D70.1 - Agranulocytosis secondary to cancer chemotherapy; T45.1X5A - Adverse effect of antineoplastic and immunosuppressive drugs, initial encounter (3) Diarrhea SNOMED Code(s): 43511995 Code(s): R19.7 - DIARRHEA, UNSPECIFIED Status: Acute Current Visit: Yes Qualifiers: Diarrhea type: unspecified type Qualified Code(s): R19.7 - Diarrhea, unspecified (4) Oral candidiasis SNOMED Code(s): 86558730 Code(s): B37.0 - CANDIDAL STOMATITIS Status: Acute Current Visit: Yes (5) Hypokalemia SNOMED Code(s): 27669809 Code(s): E87.6 - HYPOKALEMIA Status: Acute Current Visit: Yes (6) Hypomagnesemia SNOMED Code(s): 007655851 Code(s): E83.42 - HYPOMAGNESEMIA Status: Acute Current Visit: Yes (7) Hx of thyroid cancer SNOMED Code(s): 824924492 Code(s): Z85.850 - PERSONAL HISTORY OF MALIGNANT NEOPLASM OF THYROID Status : Chronic Current Visit: Yes (8) Tobacco abuse SNOMED Code(s): 349131642 Code(s): Z72.0 - TOBACCO USE Status: Chronic Current Visit: Yes (9) Gout SNOMED Code(s): 35771434 Code(s): M10.9 - GOUT, UNSPECIFIED Status: Chronic Current Visit: Yes Qualifiers: Gout site: unspecified site Chronicity: chronic (10) Colostomy in place SNOMED Code(s): 838267448, 081833557 Code(s): Z93.3 - COLOSTOMY STATUS Status: Chronic Current Visit: Yes (11) Palliative chemotherapy underway SNOMED Code(s): 542667159, 158559313 Code(s): Z51.11 - ENCOUNTER FOR ANTINEOPLASTIC CHEMOTHERAPY; Z51.5 - ENCOUNTER FOR PALLIATIVE CARE Status: Chronic Current Visit: Yes (12) Rectal cancer SNOMED Code(s): 628570040 Code(s): C20 - MALIGNANT NEOPLASM OF RECTUM Status: Chronic Current Visit : Yes - Problem List Review Problem List Initiated/Reviewed/Updated: Yes - My Orders Last 24 Hours: My Active Orders 01/04/18 09:52 Patient Status [ADT] Stat 01/04/18 10:35 Promethazine [Phenergan] 12.5 mg IM Q6H PRN 01/04/18 Lunch GI Soft Low Fiber [Soft Diet] [DIET] 01/05/18 07:51 Magnesium Sulfate/Water [Magnesium Sulfate 2 GM in Water 50 ML] 2 gm Premix Bag 1 bag IV ONETIME 01/05/18 08:00 Potassium Chloride [Klor-Con M20] 40 meq PO BIDMEALS Sodium Chloride 0.9% with KCl [Normal Saline with 40 mEq KCl] 1,000 ml IV ASDIRECTED 01/06/18 05:11 BASIC METABOLIC PANEL,BMP [CHEM] AM CBC WITH AUTO DIFF [HEME] AM MAGNESIUM [CHEM] AM 01/07/18 05:11 BASIC METABOLIC PANEL,BMP [CHEM] AM CBC WITH AUTO DIFF [HEME] AM MAGNESIUM [CHEM] AM - Plan Plan:: This 67 year old male admitted with dehydration and diarrhea who is currently receiving palliative chemotherapy for Stage IV metastatic rectal cancer. 1. Dehydration: Improving. NANCY continues to improve. Will continue LR 125. Had over 8000 ml out in diarrhea over 24hrs, with this he is extremely high risk for recurrently dehydration with his rectal cancer and poor appetite. BRAT diet. 2. Diarrhea: Continues. Refractory to loperamide. Will start Octreotide 150 mcg TID subcutaneously today and monitor. Stool cultures negative, WBC positive. Levaquin and Flagyl to be continued. 3. Hypokalemia/hypomagnesemia: Improved some but will continue to supplement with K+ 40 MEQ BID and will give 2 gm IV today of Magnesium. 4. Oral Candidiasis: Improving. Continue magic Mouth Wash swish and swallow. Monitor. 5. Neutropenia:Improved, Stop Neupogen today and monitor. 6. Rectal cancer: Stage IV with metastases to lung. Hold oral chemotherapy for now. VTE prophylaxis: Heparin Q12hr Dispo: 1-3 days pending improvement of diarrhea
[2018-01-05] MEDS: metroNIDAZOLE/Normal Saline 500 MG in Premix Bag 1 BAG IV SCH ×2 (09:43→17:22)
[2018-01-05] MEDS: Octreotide 100 MCG/1 ML Amp SUBCUT SCH ×3 (10:52→22:52)
[2018-01-05] MEDS: Levofloxacin/Dextrose 5%-Water 500 MG in Premix Bag 1 BAG IV SCH (11:37)
[2018-01-06] MEDS: Diphenhydramine/Lidocaine/Nystatin Suspension 237 ML Bottle PO SCH ×2 (01:05→05:34)
[2018-01-06] MEDS: metroNIDAZOLE/Normal Saline 500 MG in Premix Bag 1 BAG IV SCH ×2 (01:06→08:17)
[2018-01-06] MEDS: Lactated Ringers 1,000 ML IV SCH (03:56)
[2018-01-06] MEDS: Octreotide 100 MCG/1 ML Amp SUBCUT SCH (05:35)
[2018-01-06] MEDS: Levothyroxine 125 MCG Tab PO SCH (06:50)
[2018-01-06] MEDS: Calcium Carbonate/Vitamin D3 1500 MG-400 Units Tab PO SCH (08:17)
[2018-01-06] MEDS: Atropine/Diphenoxylate 0.025-2.5 MG Tab PO PRN (08:17)
[2018-01-06] MEDS: Multivitamin Tab PO SCH (08:17)
[2018-01-06] MEDS: Allopurinol 100 MG Tab PO SCH (08:17)
[2018-01-06] MEDS: Heparin Sodium 5,000 Units/ML Vial SUBCUT SCH (08:17)
[2018-01-06] MEDS: Ferrous Sulfate 325 MG Tab PO SCH (08:17)
[2018-01-06] MEDS: Levofloxacin/Dextrose 5%-Water 500 MG in Premix Bag 1 BAG IV SCH (09:59)
[2018-01-06 12:24] VITALS: BP 128/79
== END 2018-01-06 12:05 | disposition home or self-care (01) | DRG 641 ==
LOC: MW.ED 11:06 → MW.MS 13:30 → OBSVTOIN 01-04 09:52 → MW.MS 01-04 17:53
PROVIDERS: ADMIT Internal Medicine; ATTEND Internal Medicine
DX: E86.0 Dehydration (principal); B37.0 Candidal stomatitis; C20 Malignant neoplasm of rectum; K52.9 Noninfective gastroenteritis and colitis, unspecified; R19.7 Diarrhea, unspecified; N28.9 Disorder of kidney and ureter, unspecified; E87.6 Hypokalemia; Z51.5 Encounter for palliative care; E83.42 Hypomagnesemia; E03.9 Hypothyroidism, unspecified; M10.9 Gout, unspecified; F17.200 Nicotine dependence, unspecified, uncomplicated; Z93.3 Colostomy status; Z85.850 Personal history of malignant neoplasm of thyroid; Z79.899 Other long term (current) drug therapy
CPT/HCPCS: 36415 ×3; 74022; 80048 ×3; 81001; 83630; 83735 ×4; 85025; 85027; 87046; 87324; 96361; 96365; 99285; A9270 ×24; J0744; J1447 ×2; J1644 ×2; J1956; J2405 ×2; J2920; J3475 ×2; J3480; J7040; J7050; J7120 ×5; 87899; J1642; J2354-GY

== ENCOUNTER 2018-01-08 15:01 | Inpatient (IN) | payer MEDICARE, BC ==
--- NOTE | 2018-01-08 15:07 | EDM.PDOC ---
ED HPI GENERAL MEDICAL PROBLEM - General Chief Complaint: Gastrointestinal Problem Stated Complaint: AMBULANCE Time Seen by Provider: 01/08/18 15:05 Source of Information: Reports: Patient, EMS, Family History Limitations: Reports: No Limitations - History of Present Illness INITIAL COMMENTS - FREE TEXT/NARRATIVE: HISTORY AND PHYSICAL: []This patient is a 59-year-old male with known history of metastatic rectal cancer. Patient has had surgical intervention and has a colostomy. Patient also has a port. He was seen in oncology clinic December 21 after having PET scan October 30. He has been on palliative chemotherapy. He last stopped his chemotherapy tablets last Monday. Recent PET scan was showing progression of this disease increase in an enlarging presacral mass decreasing pulmonary metastatic disease. Unchanged low level uptake within the region the spinal cord at T12. At this time is chemotherapy as scheduled every 3 weeks Family had reported a bowel obstruction in March of last year he has only had intermittent constipation since then. Noticed that he has liquidy brown stool in his pouch History of Present Illness: [] Review of Systems: As per history of present illness and below otherwise all systems reviewed and negative. Past medical history: As per history of present illness and as reviewed below otherwise noncontributory. Surgical history: As per history of present illness and as reviewed below otherwise noncontributory. Social history: No reported history of drug or alcohol abuse. Family history: As per history of present illness and as reviewed below otherwise noncontributory. Physical exam: Well-developed thin cachtectic man who is nontoxic speaking clearly moves easily without any distress at all signs port is identified in the left left upper HEENT: Atraumatic, normocehpalic, pupils reactive, negative for conjunctival pallor or scleral icterus, mucous membranes moist, throat clear, neck supple, nontender, trachea midline. Lungs: Clear to auscultation, breath sounds equal bilaterally, chest non tender. Heart: S1S2, regular, negative for clicks, rubs, or JVD. Abdomen: Soft, nondistended, nontender. Negative for masses or hepatossplenmegaly. Negative for costovertebral tenderness. Pelvis: Stable nontender. Genitourinary: Deferred. Rectal: Deferred Extremities: Atraumatic, negative for cords or calf pain. Neurovascular unremarkable. Neuro: Awake, alert, oriented. Cranial nerves II through XII unremarkable. Cerebellum unremarkable. Motor and sensory unremarkable throughout. Exam nonfocal. Discussed this case with Dr. Menjivar who is in agreement for accepting refer to observation Diagnostics: []CBC CMP amylase lipase abdominal x-ray Therapeutics: [] IV fluids 2 Impression: []Dehydration Metastatic cancer Rectal cancer Plan: []Refer to observation Definitive disposition and diagnosis as appropriate pending reevaluation and review of above. Onset: Gradual Duration: Chronic, Getting Worse Location: Reports: Generalized Severity: Moderate Improves with: Reports: None Worsens with: Reports: None Associated Symptoms: Reports: No Other Symptoms - Related Data Allergies Allergy/AdvReac Type Severity Reaction Status Date / Time No Known Allergies Allergy Verified 01/08/18 15:01 Home Meds: Home Meds Allopurinol [Zyloprim] 100 mg PO DAILY 01/02/18 [History] Calcium Carbonate/Vitamin D3 [Calcium Carb 500 MG] 500 mg PO BID 01/02/18 [ History] Capecitabine [Xeloda] 1,000 mg PO BID 01/02/18 [History] Capecitabine [Xeloda] 300 mg PO BID 01/02/18 [History] Colchicine 0.6 mg PO DAILY PRN 01/02/18 [History] Diphenoxylate HCl/Atropine [Lomotil] 1 tab PO QID PRN 01/02/18 [History] Ferrous Fumarate [Hemocyte] 324 mg PO DAILY 01/02/18 [History] Levothyroxine 125 mcg PO ACBREAKFAST 01/02/18 [History] Multivitamin [Daily Multiple Vitamin] 1 tab PO DAILY 01/02/18 [History] Prednisone [IMW: predniSONE] 20 mg PO ASDIRECTED 01/02/18 [History] Octreotide [SandoSTATIN] 150 mcg SUBCUT TID #10 amp 01/06/18 [Rx] Past Medical History Cardiovascular History: Reports: Heart Murmur. Denies: Afib, Blood Clots/VTE/ DVT, CAD, [place] Respiratory History: Reports: None. Denies: PE, SOB Gastrointestinal History: Reports: Bowel Obstruction, Other (See Below) Other Gastrointestinal History: rectal cancer S/P APR with colostomy Genitourinary History: Reports: Other (See Below) Other Genitourinary History: cholostomy Musculoskeletal History: Reports: None Neurological History: Reports: None Psychiatric History: Reports: None Endocrine/Metabolic History: Reports: Hypothyroidism Hematologic History: Reports: None Immunologic History: Reports: None Oncologic (Cancer) History: Reports: Thyroid, Other (See Below) Other Oncologic History: rectal cancer- on chemo Dermatologic History: Reports: None - Infectious Disease History Infectious Disease History: Reports: Chicken Pox, Measles - Past Surgical History GI Surgical History: Reports: Other (See Below) (APR with colostomy) Endocrine Surgical History: Reports: Thyroidectomy Social & Family History - Family History Family Medical History: Noncontributory - Tobacco Use Smoking Status *Q: Current Every Day Smoker Years of Tobacco use: 40 Packs/Tins Daily: 0.4 Second Hand Smoke Exposure: No - Caffeine Use Caffeine Use: Reports: Soda - Alcohol Use Days Per Week of Alcohol Use: 4 Number of Drinks Per Day: 2 Total Drinks Per Week: 8 - Recreational Drug Use Recreational Drug Use: No - Living Situation & Occupation Living situation: Reports: Alone ED ROS GENERAL - Review of Systems Review Of Systems: ROS reveals no pertinent complaints other than HPI. ED EXAM, GI/ABD - Physical Exam Exam: See Below (see dictation) Course - Vital Signs Last Recorded V/S: Last Vital Signs Temp 35.9 C 01/08/18 15:02 Pulse 86 01/08/18 17:52 Resp 16 01/08/18 17:52 BP 111/79 01/08/18 17:52 Pulse Ox 99 01/08/18 17:52 - Orders/Labs/Meds Orders: Active Orders 24 hr Category Date Time Status Patient Status [ADT] Stat ADT 01/08/18 19:04 Ordered Abdomen 1V Decubitis [CR] Stat Exams 01/08/18 17:51 Taken Abdomen 1V Upright [CR] Stat Exams 01/08/18 15:14 Taken Chest 2V [CR] Stat Exams 01/08/18 15:14 Taken CULTURE BLOOD [BC] Stat Lab 01/08/18 15:29 Results CULTURE BLOOD [BC] Stat Lab 01/08/18 15:45 Results UA W/MICROSCOPIC [URIN] Stat Lab 01/08/18 15:13 Ordered Sodium Chloride 0.9% [Normal Saline] 1,000 ml Med 01/08/18 16:15 Active IV ASDIRECTED Sodium Chloride 0.9% [Saline Flush] Med 01/08/18 15:13 Active 10 ml FLUSH ASDIRECTED PRN Sodium Chloride 0.9% [Saline Flush] Med 01/08/18 15:13 Active 2.5 ml FLUSH ASDIRECTED PRN Blood Culture x2 Reflex Set [OM.PC] Stat Oth 01/08/18 15:13 Ordered Saline Lock Insert [OM.PC] Stat Oth 01/08/18 15:13 Ordered Medication Orders Sodium Chloride (Normal Saline) 1,000 mls @ 250 mls/hr IV ASDIRECTED CONSUELO Last Admin: 01/08/18 16:27 Dose: 250 mls/hr Sodium Chloride (Saline Flush) 10 ml FLUSH ASDIRECTED PRN PRN Reason: Keep Vein Open Sodium Chloride (Saline Flush) 2.5 ml FLUSH ASDIRECTED PRN PRN Reason: Keep Vein Open Labs: Laboratory Tests 01/08/18 01/08/18 Range/Units 15:45 15:45 WBC 3.12 L (4.0-11.0) K/uL RBC 4.82 (4.50-5.90) M/uL Hgb 14.3 (13.0-17.0) g/dL Hct 40.1 (38.0-50.0) % MCV 83.2 (80.0-98.0) fL MCH 29.7 (27.0-32.0) pg MCHC 35.7 (31.0-37.0) g/dL RDW Std Deviation 47.0 (28.0-62.0) fl RDW Coeff of Rene 17 H (11.0-15.0) % Plt Count 172 (150-400) K/uL MPV 9.30 (7.40-12.00) fL Add Manual Diff YES Neutrophils % (Manual) 63 (48.0-80.0) % Band Neutrophils % 3 % Lymphocytes % (Manual) 24 (16.0-40.0) % Monocytes % (Manual) 10 (0.0-15.0) % Nucleated RBC % 0.5 /100WBC Absolute Seg Neuts 2.0 (1.4-5.7) Band Neutrophils # 0.1 Lymphocytes # (Manual) 0.7 (0.6-2.4) Monocytes # (Manual) 0.3 (0.0-0.8) Nucleated RBCs # 0 K/uL Sodium 145 (136-148) mmol/L Potassium 4.0 (3.5-5.1) mmol/L Chloride 112 H (98-107) mmol/L Carbon Dioxide 21.2 (21.0-32.0) mmol/L BUN 32 H (7.0-18.0) mg/dL Creatinine 2.8 H (0.8-1.3) mg/dL Est Cr Clr Drug Dosing 18.95 mL/min Estimated GFR (MDRD) 22.6 ml/min Glucose 127 H (74-106) mg/dL Calcium 9.8 (8.5-10.1) mg/dL Total Bilirubin 0.4 (0.2-1.0) mg/dL AST 22 (15-37) IU/L ALT 23 (14-63) IU/L Alkaline Phosphatase 72 (46-116) U/L Total Protein 5.6 L (6.4-8.2) g/dL Albumin 3.1 L (3.4-5.0) g/dL Globulin 2.5 (2.0-3.5) g/dL Albumin/Globulin Ratio 1.2 L (1.3-2.8) Amylase 73 (25-115) U/L Lipase 182 (73-393) U/L Meds: Medications Generic Name Dose Route Start Last Admin Trade Name Freq PRN Reason Stop Dose Admin Sodium Chloride 1,000 mls @ 250 mls/hr 01/08/18 16:15 01/08/18 16:27 Normal Saline IV 250 mls/hr ASDIRECTED CONSUELO Administration Sodium Chloride 10 ml 01/08/18 15:13 Saline Flush FLUSH ASDIRECTED PRN Keep Vein Open Sodium Chloride 2.5 ml 01/08/18 15:13 Saline Flush FLUSH ASDIRECTED PRN Keep Vein Open Departure - Departure Time of Disposition: 19:07 Disposition: Refer to Observation Condition: Fair Clinical Impression: Dehydration, Rectal cancer - Discharge Information Instructions: Dehydration, Adult, [id number] Referrals: PCP,None [Primary Care Provider] - Forms: ED Department Discharge - My Orders Last 24 Hours: My Active Orders 01/08/18 15:13 UA W/MICROSCOPIC [URIN] Stat Sodium Chloride 0.9% [Saline Flush] 10 ml FLUSH ASDIRECTED PRN Sodium Chloride 0.9% [Saline Flush] 2.5 ml FLUSH ASDIRECTED PRN Blood Culture x2 Reflex Set [OM.PC] Stat Saline Lock Insert [OM.PC] Stat 01/08/18 15:14 Abdomen 1V Upright [CR] Stat Chest 2V [CR] Stat 01/08/18 15:29 CULTURE BLOOD [BC] Stat 01/08/18 15:45 CULTURE BLOOD [BC] Stat 01/08/18 16:15 Sodium Chloride 0.9% [Normal Saline] 1,000 ml IV ASDIRECTED 01/08/18 17:51 Abdomen 1V Decubitis [CR] Stat 01/08/18 19:04 Patient Status [ADT] Stat - Assessment/Plan Last 24 Hours: My Active Orders 01/08/18 15:13 UA W/MICROSCOPIC [URIN] Stat Sodium Chloride 0.9% [Saline Flush] 10 ml FLUSH ASDIRECTED PRN Sodium Chloride 0.9% [Saline Flush] 2.5 ml FLUSH ASDIRECTED PRN Blood Culture x2 Reflex Set [OM.PC] Stat Saline Lock Insert [OM.PC] Stat 01/08/18 15:14 Abdomen 1V Upright [CR] Stat Chest 2V [CR] Stat 01/08/18 15:29 CULTURE BLOOD [BC] Stat 01/08/18 15:45 CULTURE BLOOD [BC] Stat 01/08/18 16:15 Sodium Chloride 0.9% [Normal Saline] 1,000 ml IV ASDIRECTED 01/08/18 17:51 Abdomen 1V Decubitis [CR] Stat 01/08/18 19:04 Patient Status [ADT] Stat
[2018-01-08] MEDS ORDERED: Sodium Chloride 0.9% 10 ML Syringe FLUSH PRN (15:13)
[2018-01-08] MEDS ORDERED: Sodium Chloride 0.9% 2.5 ML Syringe FLUSH PRN (15:13)
[2018-01-08] MEDS: Sodium Chloride 0.9% 1,000 ML IV SCH ×2 (16:27→20:50)
--- NOTE | 2018-01-08 19:09 | CR ---
EXAM DATE: 01/08/18 PATIENT'S AGE: 67 Patient: CAITLIN PETERSON Facility: [place], [place] Site . Site : 1950 Study: XRay Chest [id number]/30/2018 5:09:10 PM Ordering Physician: Doctor Espinal Final Report: INDICATION: PAIN/SOB TECHNIQUE: Chest 2 views COMPARISON: March 29, 2017 FINDINGS: Cardiovascular and mediastinum: Stable cardiac silhouette. Stable single lead overlying the left lung apex. Mediastinum is within normal limits. Lungs and pleural spaces: Hyperinflation and scarring throughout both lungs. No sign of pleural effusion. No pneumothorax. Bones and soft tissues: No significant findings. IMPRESSION: No acute cardiopulmonary disease. Dictated by Haris Villar MD @ 01/08/2018 5:42:29 PM Dictated by: Haris Villar MD @ 01/08/2018 17:42:44 (Electronic Signature) Report Signed by Proxy. [facility]ITAL[facility]ck
--- NOTE | 2018-01-08 19:10 | CR ---
EXAM DATE: 01/08/18 PATIENT'S AGE: 67 Patient: CAITLIN PETERSON Facility: [place], [place] Site . Site : 1950 Study: XRay Abdomen Upright [id number]/30/2018 5:11:51 PM Ordering Physician: Doctor Espinal Final Report: INDICATION: Abdominal pain TECHNIQUE: Abdominal radiograph 1 views COMPARISON: 03/29/2017 FINDINGS: Bowel: There is a small gas collection in the epigastrium near the midline, medial to the gastric air bubble. Most of the lower abdomen and pelvis are excluded. Soft tissue: No evidence of pneumoperitoneum present. No suspicious calcifications noted. Bones: Unremarkable for age. IMPRESSION: 1. There is a small gas collection in the epigastrium near the midline, medial to the gastric air bubble. Further evaluation with left lateral decubitus view of the abdomen is recommended to exclude pneumoperitoneum. A copy of this report was faxed to the ordering physician at approximately 5:43 PM. Dictated by Seun Rogel MD @ 01/08/2018 5:43:49 PM Dictated by: Seun Rogel MD @ 01/08/2018 17:44:10 (Electronic Signature) Report Signed by Proxy. JOSELITO
--- NOTE | 2018-01-08 19:18 | CR ---
EXAM DATE: 01/08/18 PATIENT'S AGE: 67 Patient: CAITLIN PETERSON Facility: [place], [place] Site . Site : 1950 Study: XRay Abdomen [id number]/30/2018 6:25:42 PM Ordering Physician: Doctor Espinal Final Report: INDICATION: R/O PNEUMOPERITONEUM INDICATION: Evaluate for free air TECHNIQUE: Abdomen one view left side down decubitus, 5:59 p.m. COMPARISON: 4:41 p.m. FINDINGS: Bowel: Bowel pattern is normal. Soft tissues: No sign of free air. No sign of soft tissue mass. No suspicious calcifications. Bones: Unremarkable for age. IMPRESSION: Unremarkable abdomen. No definitive evidence for free air. If free air/ perforation is clinically suspected, then CT scan would be recommended to further evaluate. Dictated by Sherif Joshi MD @ 01/08/2018 6:45:45 PM Dictated by: Sherif Joshi MD @ 01/08/2018 18:45:55 (Electronic Signature) Report Signed by Proxy. JOSELITO
[2018-01-08] MEDS ORDERED: Ondansetron 4 MG/2 ML SDV IVPUSH PRN (21:19)
--- NOTE | 2018-01-08 21:23 | PCM.HP ---
H&P History of Present Illness - General Admit Problem/Dx: Admission Diagnosis/Problem Admission Diagnosis/Problem Dehydration - History of Present Illness Initial Comments - Free Text/Narative: his 67 year old male with pmh of stage IV rectal cancer who is S/P APR with colostomy, hx thyroidectomy secondary to thyroid cancer, tobacco abuse and gout , who was discharged two days ago for hospitalization for dehydration due to diarrhea. PAtient was discharged on octreotide. He present to ER today with complaints of generalized weakness. PAtient reports ostomy output about the same since discharge. - Related Data Allergies/Adverse Reactions: Allergies Allergy/AdvReac Type Severity Reaction Status Date / Time No Known Allergies Allergy Verified 01/08/18 15:01 Home Medications: Home Meds Allopurinol [Zyloprim] 100 mg PO DAILY 01/02/18 [History] Calcium Carbonate/Vitamin D3 [Calcium Carb 500 MG] 500 mg PO BID 01/02/18 [ History] Capecitabine [Xeloda] 1,000 mg PO BID 01/02/18 [History] Capecitabine [Xeloda] 300 mg PO BID 01/02/18 [History] Colchicine 0.6 mg PO DAILY PRN 01/02/18 [History] Diphenoxylate HCl/Atropine [Lomotil] 1 tab PO QID PRN 01/02/18 [History] Ferrous Fumarate [Hemocyte] 324 mg PO DAILY 01/02/18 [History] Levothyroxine 125 mcg PO ACBREAKFAST 01/02/18 [History] Multivitamin [Daily Multiple Vitamin] 1 tab PO DAILY 01/02/18 [History] Prednisone [IMW: predniSONE] 20 mg PO ASDIRECTED 01/02/18 [History] Octreotide [SandoSTATIN] 150 mcg SUBCUT TID #10 amp 01/06/18 [Rx] Past Medical History HEENT History: Reports: Impaired Vision Cardiovascular History: Reports: Heart Murmur. Denies: Afib, Blood Clots/VTE/ DVT, CAD, [place] Respiratory History: Reports: None. Denies: PE, SOB Gastrointestinal History: Reports: Bowel Obstruction, Other (See Below) Other Gastrointestinal History: rectal cancer S/P APR with colostomy Genitourinary History: Reports: Other (See Below) Other Genitourinary History: cholostomy Musculoskeletal History: Reports: None Neurological History: Reports: None Psychiatric History: Reports: None Endocrine/Metabolic History: Reports: Hypothyroidism Hematologic History: Reports: None Immunologic History: Reports: None Oncologic (Cancer) History: Reports: Thyroid, Other (See Below) Other Oncologic History: rectal cancer- on chemo Dermatologic History: Reports: None - Infectious Disease History Infectious Disease History: Reports: Chicken Pox, Measles - Past Surgical History GI Surgical History: Reports: Other (See Below) (APR with colostomy) Endocrine Surgical History: Reports: Thyroidectomy Social & Family History - Family History Family Medical History: Noncontributory - Tobacco Use Smoking Status *Q: Current Every Day Smoker Years of Tobacco use: 40 Packs/Tins Daily: 0.4 Second Hand Smoke Exposure: No - Caffeine Use Caffeine Use: Reports: Soda - Alcohol Use Days Per Week of Alcohol Use: 4 Number of Drinks Per Day: 2 Total Drinks Per Week: 8 - Recreational Drug Use Recreational Drug Use: No - Living Situation & Occupation Living situation: Reports: Alone H&P Review of Systems - Review of Systems: Review Of Systems: ROS reveals no pertinent complaints other than HPI. Exam - Exam Exam: See Below - Vital Signs Vital Signs: Last Vital Signs Temp 36.4 C 01/08/18 20:54 Pulse 96 01/08/18 20:54 Resp 18 01/08/18 20:54 BP 91/66 01/08/18 20:54 Pulse Ox 100 01/08/18 20:54 Weight: 53.07 kg - Exam General: Alert, Oriented, Other (cachectic) HEENT: Mucosa Moist & Hendrix Lungs: Clear to Auscultation, Normal Respiratory Effort Cardiovascular: Regular Rate, Regular Rhythm GI/Abdominal Exam: Soft, Non-Tender Extremities: Non-Tender, No Pedal Edema - Patient Data Lab Results Last 24 hrs: Laboratory Results - last 24 hr 01/08/18 01/08/18 Range/Units 15:45 15:45 WBC 3.12 L (4.0-11.0) K/uL RBC 4.82 (4.50-5.90) M/uL Hgb 14.3 (13.0-17.0) g/dL Hct 40.1 (38.0-50.0) % MCV 83.2 (80.0-98.0) fL MCH 29.7 (27.0-32.0) pg MCHC 35.7 (31.0-37.0) g/dL RDW Std Deviation 47.0 (28.0-62.0) fl RDW Coeff of Rene 17 H (11.0-15.0) % Plt Count 172 (150-400) K/uL MPV 9.30 (7.40-12.00) fL Add Manual Diff YES Neutrophils % (Manual) 63 (48.0-80.0) % Band Neutrophils % 3 % Lymphocytes % (Manual) 24 (16.0-40.0) % Monocytes % (Manual) 10 (0.0-15.0) % Nucleated RBC % 0.5 /100WBC Absolute Seg Neuts 2.0 (1.4-5.7) Band Neutrophils # 0.1 Lymphocytes # (Manual) 0.7 (0.6-2.4) Monocytes # (Manual) 0.3 (0.0-0.8) Nucleated RBCs # 0 K/uL Sodium 145 (136-148) mmol/L Potassium 4.0 (3.5-5.1) mmol/L Chloride 112 H (98-107) mmol/L Carbon Dioxide 21.2 (21.0-32.0) mmol/L BUN 32 H (7.0-18.0) mg/dL Creatinine 2.8 H (0.8-1.3) mg/dL Est Cr Clr Drug Dosing 18.95 mL/min Estimated GFR (MDRD) 22.6 ml/min Glucose 127 H (74-106) mg/dL Calcium 9.8 (8.5-10.1) mg/dL Total Bilirubin 0.4 (0.2-1.0) mg/dL AST 22 (15-37) IU/L ALT 23 (14-63) IU/L Alkaline Phosphatase 72 (46-116) U/L Total Protein 5.6 L (6.4-8.2) g/dL Albumin 3.1 L (3.4-5.0) g/dL Globulin 2.5 (2.0-3.5) g/dL Albumin/Globulin Ratio 1.2 L (1.3-2.8) Amylase 73 (25-115) U/L Lipase 182 (73-393) U/L Result Diagrams: 01/12/18 07:59 01/12/18 07:59 [place] Results Last 24 hrs: Microbiology 01/08/18 15:29 Anaerobic Blood Culture - Final Blood - Venous 01/08/18 15:45 Anaerobic Blood Culture - Final Blood - Venous - Lab Draw Problem List Initiated/Reviewed/Updated: Yes Orders Last 24hrs: Active Orders 24 hr Category Date Time Status Patient Status [ADT] Stat ADT 01/08/18 19:04 Active Oxygen Therapy [RC] PRN Care 01/08/18 21:19 Active Up ad [place] [RC] ASDIRECTED Care 01/08/18 21:19 Active VTE/DVT Education [RC] PER UNIT ROUTINE Care 01/08/18 21:19 Active Vital Signs [RC] Q4H Care 01/08/18 21:19 Active Regular Diet [DIET] Diet 01/08/18 Breakfast Active BASIC METABOLIC PANEL,BMP [CHEM] AM Lab 01/09/18 05:11 Ordered CBC W/O DIFF,HEMOGRAM [HEME] AM Lab 01/09/18 05:11 Ordered CULTURE BLOOD [BC] Stat Lab 01/08/18 15:29 Results CULTURE BLOOD [BC] Stat Lab 01/08/18 15:45 Results UA W/MICROSCOPIC [URIN] Stat Lab 01/08/18 15:13 Ordered Levothyroxine Med 01/09/18 07:30 Ordered 125 mcg PO ACBREAKFAST Octreotide [SandoSTATIN] Med 01/08/18 22:00 Ordered 250 mcg SUBCUT TID Ondansetron [Zofran] Med 01/08/18 21:19 Ordered 4 mg IVPUSH Q4H PRN Sodium Chloride 0.9% [Normal Saline] 1,000 ml Med 01/08/18 16:15 Active IV ASDIRECTED Sodium Chloride 0.9% [Saline Flush] Med 01/08/18 15:13 Active 10 ml FLUSH ASDIRECTED PRN Sodium Chloride 0.9% [Saline Flush] Med 01/08/18 15:13 Active 2.5 ml FLUSH ASDIRECTED PRN Blood Culture x2 Reflex Set [OM.PC] Stat Oth 01/08/18 15:13 Ordered Saline Lock Insert [OM.PC] Stat Oth 01/08/18 15:13 Ordered Sequential Compression Device [OM.PC] Per Unit Routine Oth 01/08/18 21:19 Ordered Medication Orders Sodium Chloride (Normal Saline) 1,000 mls @ 250 mls/hr IV ASDIRECTED CONSUELO Last Admin: 01/08/18 16:27 Dose: 250 mls/hr Levothyroxine Sodium (Levothyroxine) 125 mcg PO ACBREAKFAST CONSUELO Octreotide Acetate (Sandostatin) 250 mcg SUBCUT TID CONSUELO Ondansetron HCl (Zofran) 4 mg IVPUSH Q4H PRN PRN Reason: Nausea Sodium Chloride (Saline Flush) 10 ml FLUSH ASDIRECTED PRN PRN Reason: Keep Vein Open Sodium Chloride (Saline Flush) 2.5 ml FLUSH ASDIRECTED PRN PRN Reason: Keep Vein Open Assessment/Plan Comment:: 67 yo male admitted with dehydration and acute kidney injury due to chemotherapy induced diarrhea. We will treat with IV fluids and increase his octreotide dosage.
[2018-01-08] MEDS ORDERED: Octreotide 100 MCG/1 ML Amp SUBCUT SCH (22:00)
[2018-01-09] MEDS: Sodium Chloride 0.9% 1,000 ML IV SCH ×6 (01:14→22:50)
[2018-01-09] MEDS: Octreotide 100 MCG/1 ML Amp SUBCUT SCH ×4 (01:16→22:47)
[2018-01-09] MEDS: Levothyroxine 125 MCG Tab PO SCH (06:38)
--- NOTE | 2018-01-09 09:12 | PCM.PN ---
- General Info Date of Service: 01/09/18 Admission Dx/Problem (Free Text): Admission Diagnosis/Problem Admission Diagnosis/Problem Dehydration Subjective Update: Patient has no acute concerns this morning. He denies abdominal pain. He continues to fill his colostomy bag frequently. Currently on octreotide subcutaneously as his diarrhea was not improving with Imodium. He denies nausea , vomiting, chest pain, palpitations. He is currently on IV fluids. Functional Status: Reports: Pain Controlled, Tolerating Diet, Ambulating, Urinating - Review of Systems General: Reports: Weakness, Fatigue HEENT: Reports: No Symptoms Pulmonary: Reports: No Symptoms Cardiovascular: Reports: No Symptoms Gastrointestinal: Reports: Diarrhea Genitourinary: Reports: No Symptoms Musculoskeletal: Reports: No Symptoms Skin: Reports: No Symptoms Neurological: Reports: No Symptoms Psychiatric: Reports: No Symptoms - Patient Data Vitals - Most Recent: Last Vital Signs Temp 97.7 F 01/09/18 05:00 Pulse 56 L 01/09/18 05:00 Resp 19 01/09/18 05:00 BP 98/60 01/09/18 05:00 Pulse Ox 97 01/09/18 05:00 Weight - Most Recent: 117 lb I&O - Last 24 Hours: Intake & Output 01/08/18 01/09/18 01/09/18 22:59 06:59 14:59 Intake Total 2662 Output Total 402 Balance 2260 Lab Results Last 24 Hours: Laboratory Results - last 24 hr 01/08/18 01/08/18 01/09/18 Range/Units 15:45 15:45 06:05 WBC 3.12 L 3.04 L (4.0-11.0) K/uL RBC 4.82 4.08 L (4.50-5.90) M/uL Hgb 14.3 11.7 L (13.0-17.0) g/dL Hct 40.1 34.0 L (38.0-50.0) % MCV 83.2 83.3 (80.0-98.0) fL MCH 29.7 28.7 (27.0-32.0) pg MCHC 35.7 34.4 (31.0-37.0) g/dL RDW Std Deviation 47.0 46.6 (28.0-62.0) fl RDW Coeff of Rene 17 H 17 H (11.0-15.0) % Plt Count 172 241 (150-400) K/uL MPV 9.30 8.80 (7.40-12.00) fL Add Manual Diff YES Neutrophils % (Manual) 63 (48.0-80.0) % Band Neutrophils % 3 % Lymphocytes % (Manual) 24 (16.0-40.0) % Monocytes % (Manual) 10 (0.0-15.0) % Nucleated RBC % 0.5 0.0 /100WBC Absolute Seg Neuts 2.0 (1.4-5.7) Band Neutrophils # 0.1 Lymphocytes # (Manual) 0.7 (0.6-2.4) Monocytes # (Manual) 0.3 (0.0-0.8) Nucleated RBCs # 0 0 K/uL Sodium 145 (136-148) mmol/L Potassium 4.0 (3.5-5.1) mmol/L Chloride 112 H (98-107) mmol/L Carbon Dioxide 21.2 (21.0-32.0) mmol/L BUN 32 H (7.0-18.0) mg/dL Creatinine 2.8 H (0.8-1.3) mg/dL Est Cr Clr Drug Dosing 18.95 mL/min Estimated GFR (MDRD) 22.6 ml/min Glucose 127 H (74-106) mg/dL Calcium 9.8 (8.5-10.1) mg/dL Total Bilirubin 0.4 (0.2-1.0) mg/dL AST 22 (15-37) IU/L ALT 23 (14-63) IU/L Alkaline Phosphatase 72 (46-116) U/L Total Protein 5.6 L (6.4-8.2) g/dL Albumin 3.1 L (3.4-5.0) g/dL Globulin 2.5 (2.0-3.5) g/dL Albumin/Globulin Ratio 1.2 L (1.3-2.8) Amylase 73 (25-115) U/L Lipase 182 (73-393) U/L 01/09/18 Range/Units 06:05 WBC (4.0-11.0) K/uL RBC (4.50-5.90) M/uL Hgb (13.0-17.0) g/dL Hct (38.0-50.0) % MCV (80.0-98.0) fL MCH (27.0-32.0) pg MCHC (31.0-37.0) g/dL RDW Std Deviation (28.0-62.0) fl RDW Coeff of Rene (11.0-15.0) % Plt Count (150-400) K/uL MPV (7.40-12.00) fL Add Manual Diff Neutrophils % (Manual) (48.0-80.0) % Band Neutrophils % % Lymphocytes % (Manual) (16.0-40.0) % Monocytes % (Manual) (0.0-15.0) % Nucleated RBC % /100WBC Absolute Seg Neuts (1.4-5.7) Band Neutrophils # Lymphocytes # (Manual) (0.6-2.4) Monocytes # (Manual) (0.0-0.8) Nucleated RBCs # K/uL Sodium 144 (136-148) mmol/L Potassium 3.4 L (3.5-5.1) mmol/L Chloride 114 H (98-107) mmol/L Carbon Dioxide 15.7 L (21.0-32.0) mmol/L BUN 31 H (7.0-18.0) mg/dL Creatinine 2.3 H (0.8-1.3) mg/dL Est Cr Clr Drug Dosing 23.07 mL/min Estimated GFR (MDRD) 28.4 ml/min Glucose 125 H (74-106) mg/dL Calcium 7.5 L (8.5-10.1) mg/dL Total Bilirubin (0.2-1.0) mg/dL AST (15-37) IU/L ALT (14-63) IU/L Alkaline Phosphatase (46-116) U/L Total Protein (6.4-8.2) g/dL Albumin (3.4-5.0) g/dL Globulin (2.0-3.5) g/dL Albumin/Globulin Ratio (1.3-2.8) Amylase (25-115) U/L Lipase (73-393) U/L [facility] Results Last 24 Hours: Microbiology 01/08/18 15:29 Anaerobic Blood Culture - Final Blood - Venous 01/08/18 15:45 Anaerobic Blood Culture - Final Blood - Venous - Lab Draw Med Orders - Current: Current Medications Sodium Chloride (Normal Saline) 1,000 mls @ 250 mls/hr IV ASDIRECTED [facility] Last Admin: 01/09/18 05:18 Dose: 250 mls/hr Levothyroxine Sodium (Levothyroxine) 125 mcg PO ACBREAKFAST [facility] Last Admin: 01/09/18 06:38 Dose: 125 mcg Octreotide Acetate (Sandostatin) 250 mcg SUBCUT TID [facility] Last Admin: 01/09/18 06:28 Dose: 250 mcg Ondansetron HCl (Zofran) 4 mg IVPUSH Q4H PRN PRN Reason: Nausea Last Admin: 01/09/18 01:30 Dose: 4 mg Potassium Chloride (Klor-Con M20) 40 meq PO DAILY [facility] Sodium Chloride (Saline Flush) 10 ml FLUSH ASDIRECTED PRN PRN Reason: Keep Vein Open Sodium Chloride (Saline Flush) 2.5 ml FLUSH ASDIRECTED PRN PRN Reason: Keep Vein Open Discontinued Medications Octreotide Acetate (Sandostatin) 250 mcg SUBCUT TID [facility] Last Admin: 01/09/18 01:44 Dose: Not Given - Exam General: Alert, Oriented, Cooperative, No Acute Distress Lungs: Clear to Auscultation, Normal Respiratory Effort Cardiovascular: Regular Rate, Regular Rhythm GI/Abdominal Exam: Normal Bowel Sounds, Soft, Non-Tender, No Organomegaly, No Distention, No Abnormal Bruit, No Mass, Pelvis Stable, Other (Colostomy bag noted in left lower quadrant. Insertion point of the colostomy bag does not appear to be infected.) Extremities: Normal Inspection, Normal Range of Motion, Non-Tender, No Pedal Edema, Normal Capillary Refill Peripheral Pulses: 2+: Radial (L), Radial (R), Posterior Tibial (L), Posterior Tibial (R) Skin: Warm, Dry, Intact Neurological: No New Focal Deficit Psy/Mental Status: Alert, Normal Affect, Normal Mood - Problem List & Annotations (1) Dehydration SNOMED Code(s): 25628265 Code(s): E86.0 - DEHYDRATION Status: Acute Current Visit: Yes (2) Rectal cancer SNOMED Code(s): 641190292 Code(s): C20 - MALIGNANT NEOPLASM OF RECTUM Status: Chronic Current Visit : Yes (3) Diarrhea SNOMED Code(s): 44783685 Code(s): R19.7 - DIARRHEA, UNSPECIFIED Status: Acute Current Visit: No Qualifiers: Diarrhea type: unspecified type Qualified Code(s): R19.7 - Diarrhea, unspecified - Problem List Review Problem List Initiated/Reviewed/Updated: Yes - My Orders Last 24 Hours: My Active Orders 01/09/18 08:54 Hemoccult [OCCULT BLOOD DIAGNOSTIC] [OP] Routine 01/09/18 09:00 Potassium Chloride [Klor-Con M20] 40 meq PO DAILY - Plan Plan:: 67-year-old male with stage IV rectal cancer that is admitted with dehydration secondary to diarrhea: #1. Dehydration secondary to diarrhea: -Continue IV fluids at 250 mL/hour. -Continue octreotide subcutaneous injections 3 times a day. During recent admission, diarrhea was refractory to Imodium. #2. Anemia: -Hemoglobin dropped to 11.7 from 14.3. Likely dilutional as the patient is +2.3 L since admission. -Hemoccult is pending to ensure that we are not dealing with an active bleed. #3. Acute kidney injury secondary to dehydration: -BUN and creatinine are essentially the same since admission. BUN is 31 and creatinine is 2.3. Continue with IV fluids. Patient is +2.3 L since admission. #4. Stage IV rectal cancer: -Patient has an appointment tomorrow with Dr. Malagon, oncologist. I will try to see if Dr. Malagon will come by and visit with the patient while he is admitted. DVT prophylaxis: SCDs We had a lengthy Discussion with patient's daughter this morning. She is concerned that the patient's dehydration secondary to his chronic diarrhea is going to become cyclical and that he will bounce between the hospital for IV fluids and going home. Hospice was discussed with the patient and his family when in the ER but the patient does not want to discuss hospice at this time. The daughters are requesting a visit with hospice to get some questions answered and just to be more informed. They have also talked to the patient about stopping all treatments which the patient does not want to do at this time. The patient does have an appointment tomorrow with Dr. Malagon, oncologist, here in [place], [place]. I tried to call him to see if he would come by and see the patient while he is admitted but I was unable to get through. The family would like Dr. Malagon to discuss the patient's prognosis with him and give any recommendations that he hasn't terms of care going forward. I left my number with the clinic in [place] and he will call me back when he has a moment. Disposition: 2-4 days pending improvement.
[2018-01-09] MEDS: Potassium Chloride 20 MEQ Tab.ER PO SCH (09:44)
[2018-01-10] MEDS: Sodium Chloride 0.9% 1,000 ML IV SCH ×2 (03:22→07:51)
[2018-01-10] MEDS: Octreotide 100 MCG/1 ML Amp SUBCUT SCH (06:31)
[2018-01-10] MEDS: Levothyroxine 125 MCG Tab PO SCH (06:33)
--- NOTE | 2018-01-10 07:47 | PCM.PN ---
- General Info Date of Service: 01/10/18 Admission Dx/Problem (Free Text): Admission Diagnosis/Problem Admission Diagnosis/Problem Dehydration Subjective Update: Patient has no acute concerns morning. He denies any pain. He still has diarrhea and is emptying his colostomy bag frequently. He did urinate multiple times overnight. Functional Status: Reports: Pain Controlled, Tolerating Diet, Ambulating, Urinating - Review of Systems General: Reports: Weakness, Fatigue HEENT: Reports: No Symptoms Pulmonary: Reports: No Symptoms Cardiovascular: Reports: No Symptoms Gastrointestinal: Reports: Diarrhea Genitourinary: Reports: No Symptoms Musculoskeletal: Reports: No Symptoms Skin: Reports: No Symptoms Neurological: Reports: No Symptoms Psychiatric: Reports: No Symptoms - Patient Data Vitals - Most Recent: Last Vital Signs Temp 97.7 F 01/10/18 04:00 Pulse 60 01/10/18 04:00 Resp 18 01/10/18 04:00 BP 98/56 L 01/10/18 04:00 Pulse Ox 97 01/10/18 04:00 Weight - Most Recent: 117 lb I&O - Last 24 Hours: Intake & Output 01/09/18 01/10/18 01/10/18 22:59 06:59 14:59 Intake Total 4760 700 Output Total 800 2200 Balance 3960 -1500 Lab Results Last 24 Hours: Laboratory Results - last 24 hr 01/10/18 01/10/18 Range/Units 05:27 05:27 WBC 2.85 L (4.0-11.0) K/uL RBC 3.41 L (4.50-5.90) M/uL Hgb 10.0 L (13.0-17.0) g/dL Hct 28.6 L (38.0-50.0) % MCV 83.9 (80.0-98.0) fL MCH 29.3 (27.0-32.0) pg MCHC 35.0 (31.0-37.0) g/dL RDW Std Deviation 48.4 (28.0-62.0) fl RDW Coeff of Rene 17 H (11.0-15.0) % Plt Count 200 (150-400) K/uL MPV 8.60 (7.40-12.00) fL Add Manual Diff YES Neutrophils % (Manual) 38 L (48.0-80.0) % Band Neutrophils % 41 % Lymphocytes % (Manual) 8 L (16.0-40.0) % Monocytes % (Manual) 10 (0.0-15.0) % Eosinophils % (Manual) 2 (0.0-7.0) % Myelocytes % 1 % Nucleated RBC % 0.0 /100WBC Absolute Seg Neuts 1.1 L (1.4-5.7) Band Neutrophils # 1.2 Lymphocytes # (Manual) 0.2 L (0.6-2.4) Monocytes # (Manual) 0.3 (0.0-0.8) Eosinophils # (Manual) 0.1 (0.0-0.7) Absolute Myelocytes 0 Nucleated RBCs # 0 K/uL Sodium 147 (136-148) mmol/L Potassium 3.3 L (3.5-5.1) mmol/L Chloride 121 H (98-107) mmol/L Carbon Dioxide 11.8 L (21.0-32.0) mmol/L BUN 21 H (7.0-18.0) mg/dL Creatinine 1.5 H (0.8-1.3) mg/dL Est Cr Clr Drug Dosing 35.38 mL/min Estimated GFR (MDRD) 46.5 ml/min Glucose 105 (74-106) mg/dL Calcium 6.4 L (8.5-10.1) mg/dL [facility] Results Last 24 Hours: Microbiology 01/09/18 18:45 Stool Occult Blood ([facility]) - Final Stool / Feces - Stool, Liquid POSITIVE OCCULT BLOOD 01/08/18 15:45 Aerobic Blood Culture - Preliminary Blood - Venous - Lab Draw NO GROWTH AFTER 1 DAY Anaerobic Blood Culture - Final 01/08/18 15:29 Aerobic Blood Culture - Preliminary Blood - Venous NO GROWTH AFTER 1 DAY Anaerobic Blood Culture - Final Med Orders - Current: Current Medications Calcium Carbonate/Glycine (Tums) 500 mg PO TID [facility] Sodium Chloride (Normal Saline) 1,000 mls @ 250 mls/hr IV ASDIRECTED [facility] Last Admin: 01/10/18 03:22 Dose: 250 mls/hr Levothyroxine Sodium (Levothyroxine) 125 mcg PO ACBREAKFAST [facility] Last Admin: 01/10/18 06:33 Dose: 125 mcg Octreotide Acetate (Sandostatin) 250 mcg SUBCUT TID [facility] Last Admin: 01/10/18 06:31 Dose: 250 mcg Ondansetron HCl (Zofran) 4 mg IVPUSH Q4H PRN PRN Reason: Nausea Last Admin: 01/09/18 01:30 Dose: 4 mg Pantoprazole Sodium (Protonix Iv) 40 mg IVPUSH Q24H [facility] Potassium Chloride (Klor-Con M20) 40 meq PO DAILY [facility] Last Admin: 01/09/18 09:44 Dose: 40 meq Sodium Chloride (Saline Flush) 10 ml FLUSH ASDIRECTED PRN PRN Reason: Keep Vein Open Sodium Chloride (Saline Flush) 2.5 ml FLUSH ASDIRECTED PRN PRN Reason: Keep Vein Open Discontinued Medications Octreotide Acetate (Sandostatin) 250 mcg SUBCUT TID [facility] Last Admin: 01/09/18 01:44 Dose: Not Given - Exam Quality Assessment: DVT Prophylaxis General: Alert, Oriented, Cooperative, No Acute Distress Lungs: Clear to Auscultation, Normal Respiratory Effort Cardiovascular: Regular Rate, Regular Rhythm GI/Abdominal Exam: Normal Bowel Sounds, Soft, Non-Tender, No Organomegaly, No Distention, No Abnormal Bruit, No Mass, Pelvis Stable, Other (Colostomy bag noted in the left lower quadrant. Insertion site does not appear to be irritated or infected.) Extremities: Normal Inspection, Normal Range of Motion, Non-Tender, No Pedal Edema, Normal Capillary Refill Peripheral Pulses: 2+: Radial (L), Radial (R), Posterior Tibial (L), Posterior Tibial (R) Skin: Warm, Dry, Intact Neurological: No New Focal Deficit Psy/Mental Status: Alert, Normal Affect, Normal Mood - Problem List & Annotations (1) Dehydration SNOMED Code(s): 68708983 Code(s): E86.0 - DEHYDRATION Status: Acute Current Visit: Yes (2) Rectal cancer SNOMED Code(s): 721661370 Code(s): C20 - MALIGNANT NEOPLASM OF RECTUM Status: Chronic Current Visit : Yes (3) Diarrhea SNOMED Code(s): 74880088 Code(s): R19.7 - DIARRHEA, UNSPECIFIED Status: Acute Current Visit: No Qualifiers: Diarrhea type: unspecified type Qualified Code(s): R19.7 - Diarrhea, unspecified - Problem List Review Problem List Initiated/Reviewed/Updated: Yes - My Orders Last 24 Hours: My Active Orders 01/09/18 09:00 Potassium Chloride [Klor-Con M20] 40 meq PO DAILY 01/09/18 18:45 Hemoccult [OCCULT BLOOD DIAGNOSTIC] [OP] Routine 01/10/18 07:30 Pantoprazole [ProTONIX IV] 40 mg IVPUSH Q24H 01/10/18 14:00 Calcium Carbonate [Tums] 500 mg PO TID 01/11/18 05:11 BASIC METABOLIC PANEL,BMP [CHEM] AM CBC WITH AUTO DIFF [HEME] AM - Plan Plan:: 67-year-old male with stage IV rectal cancer that is admitted with dehydration secondary to diarrhea: #1. Dehydration secondary to diarrhea: -Switch to lactated Ringer's for normal saline at 250 mL/hour. This which is made secondary to the patient being hypochloremic. -Increase octreotide subcutaneous 500 mg 3 times a day. Can consider adding atropine or hyoscyamine to help with diarrhea. we'll see how he does with the increased dose of octreotide. -Over the last 24 hours the patient has lost 2.4 L in his colostomy bag. -Patient did produce 550 mL of urine yesterday. #2. Anemia with heme positive stools: -Hemoglobin this morning is 10. Was 11.7 yesterday was 14.3 on admission. Patient has heme positive stools. Patient started on IV Protonix 40 mg daily. -Could be dilutional as the patient has +4.6 L since admission. #3. Acute kidney injury secondary to dehydration: -Kidney function is significantly improved. BUN is 21 and creatinine is 1.3. Will switch to lactated Ringer's at 250 mL/hour. This which is made secondary to the patient being hypochloremic Patient is +4.6 L since admission. #4. Stage IV rectal cancer: -Dr. Malagon and Dr. Giles visited with the patient this morning and are going to stop the patient's chemotherapy. They believe that this is contributing to his diffuse diarrhea. They had no other recommendations. #5. Hypocalcemia, hypokalemia: -Calcium was 6.4 this morning. Patient started on calcium carbonate 500 mg 3 times a day. -Potassium this morning was 3.3. He is due to get his 40 mEq potassium chloride this morning at 9 AM. DVT prophylaxis: SCDs and Heparin The daughters of the patient did speak with hospice yesterday to get more information. The patient does not want to consider hospice at this time. Disposition: 2-4 days pending improvement.
[2018-01-10] MEDS: Potassium Chloride 20 MEQ Tab.ER PO SCH (08:44)
[2018-01-10] MEDS: Pantoprazole 40 MG Vial IVPUSH SCH (08:45)
[2018-01-10] MEDS: Lactated Ringers 1,000 ML IV SCH ×2 (11:26→20:14)
[2018-01-10] MEDS: Octreotide 100 MCG/1 ML Amp IV SCH ×2 (13:35→21:21)
[2018-01-10] MEDS: Calcium Carbonate 500 MG Tab.Chew PO SCH ×2 (13:35→21:21)
[2018-01-10] MEDS ORDERED: Octreotide 100 MCG/1 ML Amp SUBCUT SCH (14:00)
[2018-01-11] MEDS: Lactated Ringers 1,000 ML IV SCH ×4 (00:13→17:33)
[2018-01-11 05:52] LABS: CHLORIDE,CL 121 mmol/L (98-107); SODIUM,NA 148 mmol/L (136-148)
[2018-01-11] MEDS: Octreotide 100 MCG/1 ML Amp IV SCH ×3 (06:37→22:11)
[2018-01-11] MEDS: Calcium Carbonate 500 MG Tab.Chew PO SCH ×3 (06:39→22:10)
[2018-01-11] MEDS: Levothyroxine 125 MCG Tab PO SCH (06:40)
[2018-01-11] MEDS: Pantoprazole 40 MG Vial IVPUSH SCH (06:44)
[2018-01-11] MEDS: Potassium Chloride 20 MEQ Tab.ER PO SCH ×2 (07:40→22:10)
--- NOTE | 2018-01-11 08:29 | PCM.PN ---
- General Info Date of Service: 01/11/18 Admission Dx/Problem (Free Text): Admission Diagnosis/Problem Admission Diagnosis/Problem Dehydration Subjective Update: Patient denies any pain this morning. He continues to fill his colostomy bag frequently. He is up ambulating and denies any symptoms when ambulating. Functional Status: Reports: Pain Controlled, Tolerating Diet, Ambulating, Urinating - Review of Systems General: Reports: Weakness, Fatigue HEENT: Reports: No Symptoms Pulmonary: Reports: No Symptoms Cardiovascular: Reports: No Symptoms Gastrointestinal: Reports: Diarrhea Genitourinary: Reports: No Symptoms Musculoskeletal: Reports: No Symptoms Skin: Reports: No Symptoms Neurological: Reports: No Symptoms Psychiatric: Reports: No Symptoms - Patient Data Vitals - Most Recent: Last Vital Signs Temp 98.1 F 01/11/18 08:00 Pulse 86 01/11/18 08:00 Resp 18 01/11/18 08:00 BP 135/78 01/11/18 08:00 Pulse Ox 98 01/11/18 08:00 Weight - Most Recent: 117 lb I&O - Last 24 Hours: Intake & Output 01/10/18 01/11/18 01/11/18 22:59 06:59 14:59 Intake Total 2279 3468 1000 Output Total 2675 3365 Balance -597 885 8239 Lab Results Last 24 Hours: Laboratory Results - last 24 hr 01/11/18 01/11/18 Range/Units 05:20 05:20 WBC 2.79 L (4.0-11.0) K/uL RBC 3.63 L (4.50-5.90) M/uL Hgb 10.5 L (13.0-17.0) g/dL Hct 30.2 L (38.0-50.0) % MCV 83.2 (80.0-98.0) fL MCH 28.9 (27.0-32.0) pg MCHC 34.8 (31.0-37.0) g/dL RDW Std Deviation 49.2 (28.0-62.0) fl RDW Coeff of Rene 18 H (11.0-15.0) % Plt Count 186 (150-400) K/uL MPV 8.30 (7.40-12.00) fL Add Manual Diff YES Neutrophils % (Manual) 51 (48.0-80.0) % Band Neutrophils % 24 % Lymphocytes % (Manual) 12 L (16.0-40.0) % Monocytes % (Manual) 8 (0.0-15.0) % Eosinophils % (Manual) 3 (0.0-7.0) % Metamyelocytes % 2 % Nucleated RBC % 0.0 /100WBC Absolute Seg Neuts 1.4 (1.4-5.7) Band Neutrophils # 0.7 Lymphocytes # (Manual) 0.3 L (0.6-2.4) Monocytes # (Manual) 0.2 (0.0-0.8) Eosinophils # (Manual) 0.1 (0.0-0.7) Absolute Metamyelocyte 0.1 Nucleated RBCs # 0 K/uL Sodium 148 (136-148) mmol/L Potassium 2.8 L (3.5-5.1) mmol/L Chloride 121 H (98-107) mmol/L Carbon Dioxide 13.5 L (21.0-32.0) mmol/L BUN 10 (7.0-18.0) mg/dL Creatinine 1.1 (0.8-1.3) mg/dL Est Cr Clr Drug Dosing 48.25 mL/min Estimated GFR (MDRD) > 60.0 ml/min Glucose 116 H (74-106) mg/dL Calcium 6.8 L (8.5-10.1) mg/dL [facility] Results Last 24 Hours: Microbiology 01/08/18 15:45 Aerobic Blood Culture - Preliminary Blood - Venous - Lab Draw NO GROWTH AFTER 2 DAYS Anaerobic Blood Culture - Final 01/08/18 15:29 Aerobic Blood Culture - Preliminary Blood - Venous NO GROWTH AFTER 2 DAYS Anaerobic Blood Culture - Final Med Orders - Current: Current Medications Calcium Carbonate/Glycine (Tums) 1,000 mg PO TID [facility] Lactated Ringer's (Ringers, Lactated) 1,000 mls @ 250 mls/hr IV ASDIRECTED [facility] Last Admin: 01/11/18 08:10 Dose: 250 mls/hr Levothyroxine Sodium (Levothyroxine) 125 mcg PO ACBREAKFAST [facility] Last Admin: 01/11/18 06:40 Dose: 125 mcg Octreotide Acetate (Sandostatin) 500 mcg IV TID [facility] Last Admin: 01/11/18 06:37 Dose: 500 mcg Ondansetron HCl (Zofran) 4 mg IVPUSH Q4H PRN PRN Reason: Nausea Last Admin: 01/09/18 01:30 Dose: 4 mg Pantoprazole Sodium (Protonix Iv) 40 mg IVPUSH Q24H [facility] Last Admin: 01/11/18 06:44 Dose: 40 mg Potassium Chloride (Klor-Con M20) 40 meq PO BID [facility] Last Admin: 01/11/18 07:40 Dose: 40 meq Sodium Chloride (Saline Flush) 10 ml FLUSH ASDIRECTED PRN PRN Reason: Keep Vein Open Sodium Chloride (Saline Flush) 2.5 ml FLUSH ASDIRECTED PRN PRN Reason: Keep Vein Open Discontinued Medications Calcium Carbonate/Glycine (Tums) 500 mg PO TID [facility] Last Admin: 01/11/18 06:39 Dose: 500 mg Sodium Chloride (Normal Saline) 1,000 mls @ 250 mls/hr IV ASDIRECTED [facility] Last Admin: 01/10/18 07:51 Dose: 250 mls/hr Octreotide Acetate (Sandostatin) 250 mcg SUBCUT TID [facility] Last Admin: 01/09/18 01:44 Dose: Not Given Octreotide Acetate (Sandostatin) 250 mcg SUBCUT TID [facility] Last Admin: 01/10/18 06:31 Dose: 250 mcg Octreotide Acetate (Sandostatin) 500 mcg SUBCUT TID [facility] Potassium Chloride (Klor-Con M20) 40 meq PO DAILY [facility] Last Admin: 01/10/18 08:44 Dose: 40 meq - Exam General: Alert, Oriented, Cooperative, No Acute Distress Lungs: Clear to Auscultation, Normal Respiratory Effort Cardiovascular: Regular Rate, Regular Rhythm GI/Abdominal Exam: Normal Bowel Sounds, Soft, Non-Tender, No Organomegaly, No Distention, No Abnormal Bruit, No Mass, Pelvis Stable, Other (Colostomy bag noted in the left lower quadrant.) Extremities: Normal Inspection, Normal Range of Motion, Non-Tender, No Pedal Edema, Normal Capillary Refill Peripheral Pulses: 2+: Radial (L), Radial (R), Posterior Tibial (L), Posterior Tibial (R) Skin: Warm, Dry, Intact Neurological: No New Focal Deficit Psy/Mental Status: Alert, Normal Affect, Normal Mood - Problem List & Annotations (1) Dehydration SNOMED Code(s): 10192485 Code(s): E86.0 - DEHYDRATION Status: Acute Current Visit: Yes (2) Rectal cancer SNOMED Code(s): 987402493 Code(s): C20 - MALIGNANT NEOPLASM OF RECTUM Status: Chronic Current Visit : Yes (3) Diarrhea SNOMED Code(s): 17427229 Code(s): R19.7 - DIARRHEA, UNSPECIFIED Status: Acute Current Visit: No Qualifiers: Diarrhea type: unspecified type Qualified Code(s): R19.7 - Diarrhea, unspecified - Problem List Review Problem List Initiated/Reviewed/Updated: Yes - My Orders Last 24 Hours: My Active Orders 01/10/18 07:30 Pantoprazole [ProTONIX IV] 40 mg IVPUSH Q24H 01/10/18 15:55 Code Status [Resuscitation Status] Routine 01/11/18 05:20 MAGNESIUM [CHEM] Routine 01/11/18 07:30 Potassium Chloride [Klor-Con M20] 40 meq PO BID 01/11/18 14:00 Calcium Carbonate [Tums] 1,000 mg PO TID - Plan Plan:: 67-year-old male with stage IV rectal cancer that is admitted with dehydration secondary to diarrhea: #1. Dehydration secondary to diarrhea: -Continue lactated Ringer's at 150 mL/hour. Patient is +5.3 L since admission. -Continue octreotide 500 mg IV 3 times a day. Will add 0.125 mg of hyoscyamine 3 times a day to see if this can help improve the patient's diarrhea. -Over the last 24 hours the patient has lost 4.9 L in his colostomy bag. -Patient is urinating. #2. Anemia with heme positive stools: -Hemoglobin remains stable. HGB is 10.5 this morning. Patient has heme positive stools. Continue IV Protonix 40 mg daily. -Could be dilutional as the patient has +5.3 L since admission. #3. Acute kidney injury secondary to dehydration: -Kidney function is now normal. Continue to monitor. #4. Stage IV rectal cancer: -Dr. Malagon and Dr. Giles have decided to hold the patient's future chemotherapy treatments. They believe this is contributing to his diarrhea. #5. Hypocalcemia, hypokalemia: -Calcium has improved to 6.8. I will increase his calcium carbonate 1000 mg 3 times a day. -Potassium was 2.8 this morning. Patient will be given a lactated Ringer's bolus with potassium chloride to help improve his potassium. -Repeat BMP this afternoon. DVT prophylaxis: SCDs and Heparin Disposition: 2-4 days pending improvement.
[2018-01-11] MEDS ORDERED: Magnesium Sulfate/Water 4 GM in Premix Bag 1 BAG IV ONE (09:09)
[2018-01-11] MEDS: Hyoscyamine 0.125 MG Tab.SL SL SCH ×4 (10:46→22:10)
[2018-01-11 16:39] LABS: CHLORIDE,CL 120 mmol/L (98-107); SODIUM,NA 149 mmol/L (136-148)
[2018-01-12] MEDS: Lactated Ringers 1,000 ML IV SCH ×2 (00:48→08:12)
[2018-01-12] MEDS: Hyoscyamine 0.125 MG Tab.SL SL SCH ×6 (02:11→21:17)
[2018-01-12] MEDS: Calcium Carbonate 500 MG Tab.Chew PO SCH ×3 (06:35→21:34)
[2018-01-12] MEDS: Levothyroxine 125 MCG Tab PO SCH (06:36)
[2018-01-12] MEDS: Pantoprazole 40 MG Vial IVPUSH SCH (06:36)
[2018-01-12] MEDS: Octreotide 100 MCG/1 ML Amp IV SCH ×3 (06:36→21:20)
[2018-01-12] MEDS: Potassium Chloride 20 MEQ Tab.ER PO SCH ×2 (08:08→21:12)
[2018-01-12 08:26] LABS: CHLORIDE,CL 122 mmol/L (98-107); SODIUM,NA 147 mmol/L (136-148)
[2018-01-12] MEDS: Dextrose 5% in Water 1,000 ML IV SCH ×2 (11:04→21:14)
[2018-01-12] MEDS ORDERED: Loperamide 2 MG Cap PO SCH (11:15)
--- NOTE | 2018-01-12 11:47 | PCM.PN ---
- General Info Date of Service: 01/12/18 Admission Dx/Problem (Free Text): Admission Diagnosis/Problem Admission Diagnosis/Problem Dehydration Subjective Update: Patient continues to report no acute pain during admission. He continues to fill his colostomy bag frequently. Diarrhea is persistent. He is tolerating oral intake. Functional Status: Reports: Pain Controlled, Tolerating Diet, Ambulating, Urinating - Review of Systems General: Reports: Weakness HEENT: Reports: No Symptoms Pulmonary: Reports: No Symptoms Cardiovascular: Reports: No Symptoms Gastrointestinal: Reports: Diarrhea Genitourinary: Reports: No Symptoms Musculoskeletal: Reports: No Symptoms Skin: Reports: No Symptoms Neurological: Reports: No Symptoms Psychiatric: Reports: No Symptoms - Patient Data Vitals - Most Recent: Last Vital Signs Temp 97.9 F 01/12/18 08:00 Pulse 78 01/12/18 08:00 Resp 18 01/12/18 08:00 BP 109/70 01/12/18 08:00 Pulse Ox 97 01/12/18 08:00 Weight - Most Recent: 117 lb I&O - Last 24 Hours: Intake & Output 01/11/18 01/12/18 01/12/18 22:59 06:59 14:59 Intake Total 2352 2084 1037 Output Total 3774 9760 Balance -1423 -1216 1037 Lab Results Last 24 Hours: Laboratory Results - last 24 hr 01/11/18 01/12/18 01/12/18 Range/Units 16:07 07:59 07:59 WBC 2.25 L (4.0-11.0) K/uL RBC 3.84 L (4.50-5.90) M/uL Hgb 11.2 L (13.0-17.0) g/dL Hct 31.9 L (38.0-50.0) % MCV 83.1 (80.0-98.0) fL MCH 29.2 (27.0-32.0) pg MCHC 35.1 (31.0-37.0) g/dL RDW Std Deviation 50.1 (28.0-62.0) fl RDW Coeff of Rene 19 H (11.0-15.0) % Plt Count 203 (150-400) K/uL MPV 8.80 (7.40-12.00) fL Add Manual Diff YES Neutrophils % (Manual) 63 (48.0-80.0) % Band Neutrophils % 12 % Lymphocytes % (Manual) 18 (16.0-40.0) % Monocytes % (Manual) 10 (0.0-15.0) % Eosinophils % (Manual) 2 (0.0-7.0) % Nucleated RBC % 0.0 /100WBC Absolute Seg Neuts 1.4 (1.4-5.7) Band Neutrophils # 0.3 Lymphocytes # (Manual) 0.4 L (0.6-2.4) Monocytes # (Manual) 0.2 (0.0-0.8) Eosinophils # (Manual) 0.0 (0.0-0.7) Nucleated RBCs # 0 K/uL Sodium 149 H 147 (136-148) mmol/L Potassium 3.5 3.5 (3.5-5.1) mmol/L Chloride 120 H 122 H (98-107) mmol/L Carbon Dioxide 16.4 L 17.0 L (21.0-32.0) mmol/L BUN 9 6 L (7.0-18.0) mg/dL Creatinine 1.0 1.1 (0.8-1.3) mg/dL Est Cr Clr Drug Dosing 53.07 48.25 mL/min Estimated GFR (MDRD) > 60.0 > 60.0 ml/min Glucose 117 H 128 H (74-106) mg/dL Calcium 7.1 L 7.3 L (8.5-10.1) mg/dL Magnesium 2.2 H (1.5-2.0) mg/dL [place] Results Last 24 Hours: Microbiology 01/08/18 15:45 Aerobic Blood Culture - Preliminary Blood - Venous - Lab Draw NO GROWTH AFTER 3 DAYS Anaerobic Blood Culture - Final 01/08/18 15:29 Aerobic Blood Culture - Preliminary Blood - Venous NO GROWTH AFTER 3 DAYS Anaerobic Blood Culture - Final Med Orders - Current: Current Medications Calcium Carbonate/Glycine (Tums) 1,000 mg PO TID [facility] Last Admin: 01/12/18 06:35 Dose: 1,000 mg Diphenoxylate HCl/Atropine (Lomotil 0.025-2.5 Mg) 2 tab PO QID [facility] Hyoscyamine (Hyomax-Sl) 0.125 mg SL Q4H [facility] Last Admin: 01/12/18 10:41 Dose: 0.125 mg Dextrose/Water (Dextrose 5% In Water) 1,000 mls @ 100 mls/hr IV ASDIRECTED [facility] Last Admin: 01/12/18 11:04 Dose: 100 mls/hr Levothyroxine Sodium (Levothyroxine) 125 mcg PO ACBREAKFAST [facility] Last Admin: 01/12/18 06:36 Dose: 125 mcg Loperamide HCl (Imodium) 4 mg PO Q4H [facility] Octreotide Acetate (Sandostatin) 500 mcg IV TID [facility] Last Admin: 01/12/18 06:36 Dose: 500 mcg Ondansetron HCl (Zofran) 4 mg IVPUSH Q4H PRN PRN Reason: Nausea Last Admin: 01/09/18 01:30 Dose: 4 mg Pantoprazole Sodium (Protonix Iv) 40 mg IVPUSH Q24H [facility] Last Admin: 01/12/18 06:36 Dose: 40 mg Potassium Chloride (Klor-Con M20) 40 meq PO BID [facility] Last Admin: 01/12/18 08:08 Dose: 40 meq Sodium Chloride (Saline Flush) 10 ml FLUSH ASDIRECTED PRN PRN Reason: Keep Vein Open Sodium Chloride (Saline Flush) 2.5 ml FLUSH ASDIRECTED PRN PRN Reason: Keep Vein Open Discontinued Medications Calcium Carbonate/Glycine (Tums) 500 mg PO TID [facility] Last Admin: 01/11/18 06:39 Dose: 500 mg Sodium Chloride (Normal Saline) 1,000 mls @ 250 [facility] [place] Last Admin: 01/10/18 07:51 Dose: 250 mls/hr Lactated Ringer's (Ringers, Lactated) 1,000 mls @ 250 mls[facility] [place] Last Admin: 01/11/18 08:10 Dose: 250 mls/hr Magnesium Sulfate 4 gm/ Premix 100 mls @ 25 mls/hr IV ONETIME ONE Stop: 01/11/18 13:08 Last Admin: 01/11/18 09:32 Dose: 25 mls/hr Potassium Chloride 40 meq/ (Lactated Ringer's) 1,020 mls @ 150 mls[facility] [place] Stop: 01/11/18 17:02 Last Admin: 01/11/18 10:40 Dose: 150 mls/hr Lactated Ringer's (Ringers, Lactated) 1,000 mls @ 150 mls/hr IV ASDIRECTED [facility] Last Admin: 01/12/18 08:12 Dose: 150 mls/hr Loperamide HCl (Imodium) 4 mg PO Q4H [facility] Octreotide Acetate (Sandostatin) 250 mcg SUBCUT TID [facility] Last Admin: 01/09/18 01:44 Dose: Not Given Octreotide Acetate (Sandostatin) 250 mcg SUBCUT TID [facility] Last Admin: 01/10/18 06:31 Dose: 250 mcg Octreotide Acetate (Sandostatin) 500 mcg SUBCUT TID [facility] Potassium Chloride (Klor-Con M20) 40 meq PO DAILY [facility] Last Admin: 01/10/18 08:44 Dose: 40 meq - Exam General: Alert, Oriented, Cooperative, No Acute Distress Lungs: Clear to Auscultation, Normal Respiratory Effort Cardiovascular: Regular Rate, Regular Rhythm GI/Abdominal Exam: Normal Bowel Sounds, Soft, Non-Tender, No Organomegaly, No Distention, No Abnormal Bruit, No Mass, Pelvis Stable, Other (Colostomy bag present in left lower quadrant.) Extremities: Normal Inspection, Normal Range of Motion, Non-Tender, No Pedal Edema, Normal Capillary Refill Peripheral Pulses: 2+: Radial (L), Radial (R), Posterior Tibial (L), Posterior Tibial (R) Skin: Warm, Dry, Intact Neurological: No New Focal Deficit Psy/Mental Status: Alert, Normal Affect, Normal Mood - Problem List & Annotations (1) Dehydration SNOMED Code(s): 82146336 Code(s): E86.0 - DEHYDRATION Status: Acute Current Visit: Yes (2) Rectal cancer SNOMED Code(s): 303407767 Code(s): C20 - MALIGNANT NEOPLASM OF RECTUM Status: Chronic Current Visit : Yes (3) Diarrhea SNOMED Code(s): 51595583 Code(s): R19.7 - DIARRHEA, UNSPECIFIED Status: Acute Current Visit: No Qualifiers: Diarrhea type: unspecified type Qualified Code(s): R19.7 - Diarrhea, unspecified - Problem List Review Problem List Initiated/Reviewed/Updated: Yes - My Orders Last 24 Hours: My Active Orders 01/11/18 14:00 Calcium Carbonate [Tums] 1,000 mg PO TID 01/12/18 12:00 Atropine/Diphenoxylate [Lomotil 0.025-2.5 MG] 2 tab PO QID Loperamide [Imodium] 4 mg PO Q4H - Plan Plan:: 67-year-old male with stage IV rectal cancer that is admitted with dehydration secondary to diarrhea: #1. Dehydration secondary to diarrhea: -Patient will be switched to D5W at 100 mL/hour secondary to hyperchloremia. -Continue octreotide 500 mg IV 3 times a day. Continue hyoscyamine 0.125 mg 3 times daily. I spoke with Dr. Edmond, technical research scientist, from . He recommended adding Imodium and Lomotil and continuing with the octreotide and hyoscyamine. He also stated that codeine can be used to help with persistent diarrhea. -Over the last 24 hours the patient has lost 5.8 L in his colostomy bag. -We will get stool cx, C. Diff and stool WBC again. -Patient is urinating. #2. Anemia with heme positive stools: -Hemoglobin remains stable. HGB is 10.5 this morning. Patient has heme positive stools. Continue IV Protonix 40 mg daily. #3. Acute kidney injury secondary to dehydration: -Kidney function is now normal. Continue to monitor. #4. Stage IV rectal cancer: -Dr. Malagon and Dr. Giles have decided to hold the patient's future chemotherapy treatments. They believe this is contributing to his diarrhea. #5. Hypocalcemia, hypokalemia: -Continue calcium carbonate 1000 mg 3 times a day. -Continue potassium chloride 40 mEq twice a day -Repeat BMP this afternoon. DVT prophylaxis: SCDs and Heparin Disposition: There is concern for a high readmission rate with the patient secondary to dehydration from his chronic diarrhea. We need to get his diarrhea under control so that when he is discharged he does not return with dehydration and poor kidney function. When the patient was recently discharged his kidney function was normal but within less than 24 hours after discharge, he presented back to the ER and his kidney function had significantly worsened secondary to the inability to keep up hydration with what he was losing in his colostomy bag.
[2018-01-12] MEDS: Loperamide 2 MG Cap PO SCH ×3 (11:48→21:12)
[2018-01-12] MEDS: Atropine/Diphenoxylate 0.025-2.5 MG Tab PO SCH ×2 (12:34→17:57)
[2018-01-12] MEDS: Levofloxacin 250 MG Tab PO SCH (12:34)
[2018-01-12 16:55] LABS: CHLORIDE,CL 122 mmol/L (98-107); SODIUM,NA 147 mmol/L (136-148)
[2018-01-13] MEDS: Loperamide 2 MG Cap PO SCH ×7 (00:11→23:31)
[2018-01-13] MEDS: Atropine/Diphenoxylate 0.025-2.5 MG Tab PO SCH ×5 (00:12→23:30)
[2018-01-13] MEDS: Hyoscyamine 0.125 MG Tab.SL SL SCH ×6 (02:00→21:36)
[2018-01-13 06:41] LABS: CHLORIDE,CL 119 mmol/L (98-107); SODIUM,NA 144 mmol/L (136-148)
[2018-01-13] MEDS: Octreotide 100 MCG/1 ML Amp IV SCH ×3 (06:52→21:34)
[2018-01-13] MEDS: Calcium Carbonate 500 MG Tab.Chew PO SCH ×3 (06:53→21:36)
[2018-01-13] MEDS: Levothyroxine 125 MCG Tab PO SCH (06:53)
[2018-01-13] MEDS: Pantoprazole 40 MG Vial IVPUSH SCH (07:01)
[2018-01-13] MEDS: Dextrose 5% in Water 1,000 ML IV SCH ×2 (07:02→17:15)
[2018-01-13] MEDS: Potassium Chloride 20 MEQ Tab.ER PO SCH ×2 (08:03→20:20)
--- NOTE | 2018-01-13 13:15 | PCM.PN ---
- Review of Systems Systems Review Comment:: feeling better still having lots of diarrhea - Patient Data Vitals - Most Recent: Last Vital Signs Temp 36.6 C 01/13/18 08:00 Pulse 75 01/13/18 08:00 Resp 15 01/13/18 08:00 BP 93/55 L 01/13/18 08:00 Pulse Ox 97 01/13/18 08:00 Weight - Most Recent: 53.07 kg I&O - Last 24 Hours: Intake & Output 01/12/18 01/13/18 01/13/18 22:59 06:59 14:59 Intake Total 1104 1734 Output Total 3394 3185 Balance -4331 -705 Lab Results Last 24 Hours: Laboratory Results - last 24 hr 01/12/18 01/13/18 01/13/18 Range/Units 16:14 06:15 06:15 WBC 2.36 L (4.0-11.0) K/uL RBC 3.90 L (4.50-5.90) M/uL Hgb 11.4 L (13.0-17.0) g/dL Hct 32.3 L (38.0-50.0) % MCV 82.8 (80.0-98.0) fL MCH 29.2 (27.0-32.0) pg MCHC 35.3 (31.0-37.0) g/dL RDW Std Deviation 50.2 (28.0-62.0) fl RDW Coeff of Rene 19 H (11.0-15.0) % Plt Count 200 (150-400) K/uL MPV 8.80 (7.40-12.00) fL Add Manual Diff YES Neutrophils % (Manual) 60 (48.0-80.0) % Band Neutrophils % 14 % Lymphocytes % (Manual) 15 L (16.0-40.0) % Monocytes % (Manual) 10 (0.0-15.0) % Eosinophils % (Manual) 1 (0.0-7.0) % Nucleated RBC % 0.0 /100WBC Absolute Seg Neuts 1.4 (1.4-5.7) Band Neutrophils # 0.3 Lymphocytes # (Manual) 0.4 L (0.6-2.4) Monocytes # (Manual) 0.2 (0.0-0.8) Eosinophils # (Manual) 0.0 (0.0-0.7) Nucleated RBCs # 0 K/uL Sodium 147 144 (136-148) mmol/L Potassium 3.6 3.6 (3.5-5.1) mmol/L Chloride 122 H 119 H (98-107) mmol/L Carbon Dioxide 16.1 L 16.3 L (21.0-32.0) mmol/L BUN 5 L 4 L (7.0-18.0) mg/dL Creatinine 1.0 1.0 (0.8-1.3) mg/dL Est Cr Clr Drug Dosing 53.07 53.07 mL/min Estimated GFR (MDRD) > 60.0 > 60.0 ml/min Glucose 145 H 143 H (74-106) mg/dL Calcium 7.3 L 7.4 L (8.5-10.1) mg/dL [place] Results Last 24 Hours: Microbiology 01/12/18 10:37 Campylobacter Antigen Assay - Final Stool / Feces Positive Campylobacter Ag - Final NEGATIVE FOR SHIGA TOXIN 1 - Final NEGATIVE FOR SHIGA TOXIN 2 01/08/18 15:45 Aerobic Blood Culture - Preliminary Blood - Venous - Lab Draw NO GROWTH AFTER 4 DAYS Anaerobic Blood Culture - Final 01/08/18 15:29 Aerobic Blood Culture - Preliminary Blood - Venous NO GROWTH AFTER 4 DAYS Anaerobic Blood Culture - Final 01/12/18 10:38 Stool for WBCs - Final Stool / Feces POSITIVE FOR WBC'S 01/12/18 10:37 Clostridium difficile Toxin A & B - Final Stool / Feces Negative for C.Diff Toxin/AG Med Orders - Current: Current Medications Calcium Carbonate/Glycine (Tums) 1,000 mg PO TID [facility] Last Admin: 01/13/18 06:53 Dose: 1,000 mg Diphenoxylate HCl/Atropine (Lomotil 0.025-2.5 Mg) 2 tab PO QID [facility] Last Admin: 01/13/18 11:19 Dose: 2 tab Hyoscyamine (Hyomax-Sl) 0.125 mg SL Q4H [facility] Last Admin: 01/13/18 11:18 Dose: 0.125 mg Dextrose/Water (Dextrose 5% In Water) 1,000 mls @ 100 mls/hr IV ASDIRECTED [facility] Last Admin: 01/13/18 07:02 Dose: 100 mls/hr Levofloxacin (Levaquin) 750 mg PO Q48H [facility] Last Admin: 01/12/18 12:34 Dose: 750 mg Levothyroxine Sodium (Levothyroxine) 125 mcg PO ACBREAKFAST [facility] Last Admin: 01/13/18 06:53 Dose: 125 mcg Loperamide HCl (Imodium) 4 mg PO Q4H [facility] Last Admin: 01/13/18 11:19 Dose: 4 mg Octreotide Acetate (Sandostatin) 500 mcg IV TID [facility] Last Admin: 01/13/18 06:52 Dose: 500 mcg Ondansetron HCl (Zofran) 4 mg IVPUSH Q4H PRN PRN Reason: Nausea Last Admin: 01/09/18 01:30 Dose: 4 mg Pantoprazole Sodium (Protonix Iv) 40 mg IVPUSH Q24H [facility] Last Admin: 01/13/18 07:01 Dose: 40 mg Potassium Chloride (Klor-Con M20) 40 meq PO BID [facility] Last Admin: 01/13/18 08:03 Dose: 40 meq Sodium Chloride (Saline Flush) 10 ml FLUSH ASDIRECTED PRN PRN Reason: Keep Vein Open Sodium Chloride (Saline Flush) 2.5 ml FLUSH ASDIRECTED PRN PRN Reason: Keep Vein Open Discontinued Medications Calcium Carbonate/Glycine (Tums) 500 mg PO TID [facility] Last Admin: 01/11/18 06:39 Dose: 500 mg Sodium Chloride (Normal Saline) 1,000 mls @ 250 mls/hr IV ASDIRECTED [facility] Last Admin: 01/10/18 07:51 Dose: 250 mls/hr Lactated Ringer's (Ringers, Lactated) 1,000 mls @ 250 mls/hr IV ASDIRECTED [facility] Last Admin: 01/11/18 08:10 Dose: 250 mls/hr Magnesium Sulfate 4 gm/ Premix 100 mls @ 25 mls/hr IV ONETIME ONE Stop: 01/11/18 13:08 Last Admin: 01/11/18 09:32 Dose: 25 mls/hr Potassium Chloride 40 meq/ (Lactated Ringer's) 1,020 mls @ 150 [facility]: 01/11/18 17:02 Last Admin: 01/11/18 10:40 Dose: 150 mls/hr Lactated Ringer's (Ringers, Lactated) 1,000 mls @ 150 mls/hr IV ASDIRECTED [facility] Last Admin: 01/12/18 08:12 Dose: 150 mls/hr Loperamide HCl (Imodium) 4 mg PO Q4H [facility] Last Admin: 01/12/18 11:48 Dose: Not Given Octreotide Acetate (Sandostatin) 250 mcg SUBCUT TID [facility] Last Admin: 01/09/18 01:44 Dose: Not Given Octreotide Acetate (Sandostatin) 250 mcg SUBCUT TID [facility] Last Admin: 01/10/18 06:31 Dose: 250 mcg Octreotide Acetate (Sandostatin) 500 mcg SUBCUT TID [facility] Potassium Chloride (Klor-Con M20) 40 meq PO DAILY [facility] Last Admin: 01/10/18 08:44 Dose: 40 meq - Exam General: Alert, Oriented, Other (cachectic) Lungs: Clear to Auscultation, Normal Respiratory Effort Cardiovascular: Regular Rate, Regular Rhythm GI/Abdominal Exam: Soft, Non-Tender Extremities: No Pedal Edema Skin: Warm, Dry, Intact - Problem List Review Problem List Initiated/Reviewed/Updated: Yes - My Orders Last 24 Hours: My Active Orders 01/14/18 05:11 BASIC METABOLIC PANEL,BMP [CHEM] AM CBC WITH AUTO DIFF [HEME] AM 01/15/18 05:11 BASIC METABOLIC PANEL,BMP [CHEM] AM CBC WITH AUTO DIFF [HEME] AM 01/16/18 05:11 BASIC METABOLIC PANEL,BMP [CHEM] AM CBC WITH AUTO DIFF [HEME] AM 01/17/18 05:11 BASIC METABOLIC PANEL,BMP [CHEM] AM CBC WITH AUTO DIFF [HEME] AM 01/18/18 05:11 BASIC METABOLIC PANEL,BMP [CHEM] AM CBC WITH AUTO DIFF [HEME] AM 01/19/18 05:11 BASIC METABOLIC PANEL,BMP [CHEM] AM CBC WITH AUTO DIFF [HEME] AM - Plan Plan:: 67 yo male admitted with dehydration and acute kidney injury due to chemotherapy induced diarrhea. Stool studies positive for campylobacter. We will continue treatment with levaquin IV D5NS, hyosciamine, octreotide, and Imodium. Due to high output patient is needing continues IV fluid administration.
[2018-01-14] MEDS: Hyoscyamine 0.125 MG Tab.SL SL SCH ×6 (03:03→21:32)
[2018-01-14] MEDS: Loperamide 2 MG Cap PO SCH ×6 (03:03→23:21)
[2018-01-14] MEDS: Dextrose 5% in Water 1,000 ML IV SCH (03:08)
[2018-01-14] MEDS: Octreotide 100 MCG/1 ML Amp IV SCH ×3 (06:25→21:30)
[2018-01-14 06:26] LABS: CHLORIDE,CL 111 mmol/L (98-107); SODIUM,NA 136 mmol/L (136-148)
[2018-01-14] MEDS: Calcium Carbonate 500 MG Tab.Chew PO SCH ×3 (06:28→21:31)
[2018-01-14] MEDS: Atropine/Diphenoxylate 0.025-2.5 MG Tab PO SCH ×4 (06:28→23:21)
[2018-01-14] MEDS: Levothyroxine 125 MCG Tab PO SCH (06:30)
[2018-01-14] MEDS: Pantoprazole 40 MG Vial IVPUSH SCH (06:32)
[2018-01-14] MEDS: Potassium Chloride 20 MEQ Tab.ER PO SCH ×2 (09:51→20:06)
[2018-01-14] MEDS: Lactated Ringers 1,000 ML IV SCH ×3 (09:51→23:24)
--- NOTE | 2018-01-14 09:59 | PCM.PN ---
- Review of Systems Systems Review Comment:: no new complaints, no nausea, no fevers, continues to have diarrhea - Patient Data Vitals - Most Recent: Last Vital Signs Temp 36.2 C 01/14/18 08:00 Pulse 78 01/14/18 04:00 Resp 14 01/14/18 08:00 BP 83/51 L 01/14/18 08:00 Pulse Ox 97 01/14/18 08:00 Weight - Most Recent: 53.07 kg I&O - Last 24 Hours: Intake & Output 01/13/18 01/14/18 01/14/18 22:59 06:59 14:59 Intake Total 1389 250 Output Total 1050 1750 Balance 339 -1500 Lab Results Last 24 Hours: Laboratory Results - last 24 hr 01/14/18 01/14/18 Range/Units 05:42 05:42 WBC 2.60 L (4.0-11.0) K/uL RBC 3.48 L (4.50-5.90) M/uL Hgb 10.4 L (13.0-17.0) g/dL Hct 28.6 L (38.0-50.0) % MCV 82.2 (80.0-98.0) fL MCH 29.9 (27.0-32.0) pg MCHC 36.4 (31.0-37.0) g/dL RDW Std Deviation 50.4 (28.0-62.0) fl RDW Coeff of Rene 19 H (11.0-15.0) % Plt Count 186 (150-400) K/uL MPV 8.90 (7.40-12.00) fL Add Manual Diff YES Neutrophils % (Manual) 51 (48.0-80.0) % Band Neutrophils % 18 % Lymphocytes % (Manual) 29 (16.0-40.0) % Monocytes % (Manual) 2 (0.0-15.0) % Nucleated RBC % 0.0 /100WBC Absolute Seg Neuts 1.3 L (1.4-5.7) Band Neutrophils # 0.5 Lymphocytes # (Manual) 0.8 (0.6-2.4) Monocytes # (Manual) 0.1 (0.0-0.8) Nucleated RBCs # 0 K/uL Sodium 136 (136-148) mmol/L Potassium 3.6 (3.5-5.1) mmol/L Chloride 111 H (98-107) mmol/L Carbon Dioxide 16.0 L (21.0-32.0) mmol/L BUN 2 L (7.0-18.0) mg/dL Creatinine 1.0 (0.8-1.3) mg/dL Est Cr Clr Drug Dosing 53.07 mL/min Estimated GFR (MDRD) > 60.0 ml/min Glucose 129 H (74-106) mg/dL Calcium 7.3 L (8.5-10.1) mg/dL [place] Results Last 24 Hours: Microbiology 01/12/18 10:37 Stool Culture - Final Stool / Feces NO SALMONELLA, SHIGELLA,OR E.COLI O157 ISOLATED Campylobacter Antigen Assay - Final Positive Campylobacter Ag - Final NEGATIVE FOR SHIGA TOXIN 1 - Final NEGATIVE FOR SHIGA TOXIN 2 01/08/18 15:45 Aerobic Blood Culture - Final Blood - Venous - Lab Draw NO GROWTH AFTER 5 DAYS Anaerobic Blood Culture - Final 01/08/18 15:29 Aerobic Blood Culture - Final Blood - Venous NO GROWTH AFTER 5 DAYS Anaerobic Blood Culture - Final Med Orders - Current: Current Medications Calcium Carbonate/Glycine (Tums) 1,000 mg PO TID [facility] Last Admin: 01/14/18 06:28 Dose: 1,000 mg Diphenoxylate HCl/Atropine (Lomotil 0.025-2.5 Mg) 2 tab PO QID [facility] Last Admin: 01/14/18 06:28 Dose: 2 tab Hyoscyamine (Hyomax-Sl) 0.125 mg SL Q4H [facility] Last Admin: 01/14/18 06:28 Dose: 0.125 mg Lactated Ringer's (Ringers, Lactated) 1,000 mls @ 100 mls/hr IV ASDIRECTED [facility] Levofloxacin (Levaquin) 750 mg PO Q48H [facility] Last Admin: 01/12/18 12:34 Dose: 750 mg Levothyroxine Sodium (Levothyroxine) 125 mcg PO ACBREAKFAST [facility] Last Admin: 01/14/18 06:30 Dose: 125 mcg Loperamide HCl (Imodium) 4 mg PO Q4H [facility] Last Admin: 01/14/18 07:54 Dose: 4 mg Octreotide Acetate (Sandostatin) 500 mcg IV TID [facility] Last Admin: 01/14/18 06:25 Dose: 500 mcg Ondansetron HCl (Zofran) 4 mg IVPUSH Q4H PRN PRN Reason: Nausea Last Admin: 01/09/18 01:30 Dose: 4 mg Pantoprazole Sodium (Protonix Iv) 40 mg IVPUSH Q24H [facility] Last Admin: 01/14/18 06:32 Dose: 40 mg Potassium Chloride (Klor-Con M20) 40 meq PO BID [facility] Last Admin: 01/13/18 20:20 Dose: 40 meq Sodium Chloride (Saline Flush) 10 ml FLUSH ASDIRECTED PRN PRN Reason: Keep Vein Open Sodium Chloride (Saline Flush) 2.5 ml FLUSH ASDIRECTED PRN PRN Reason: Keep Vein Open Discontinued Medications Calcium Carbonate/Glycine (Tums) 500 mg PO TID [facility] Last Admin: 01/11/18 06:39 Dose: 500 mg Sodium Chloride (Normal Saline) 1,000 mls @ [facility] Last Admin: 01/10/18 07:51 Dose: 250 mls/hr Lactated Ringer's (Ringers, Lactated) 1,000 mls @ 250 [facility] Last Admin: 01/11/18 08:10 Dose: 250 mls/hr Magnesium Sulfate 4 gm/ Premix 100 mls @ 25 mls/hr IV ONETIME ONE Stop: 01/11/18 13:08 Last Admin: 01/11/18 09:32 Dose: 25 mls/hr Potassium Chloride 40 meq/ (Lactated Ringer's) 1,020 mls @ 150 mls/hr IV ASDIRECTED [facility] Stop: 01/11/18 17:02 Last Admin: 01/11/18 10:40 Dose: 150 mls/hr Lactated Ringer's (Ringers, Lactated) 1,000 mls @ 150 mls/hr IV ASDIRECTED [facility] Last Admin: 01/12/18 08:12 Dose: 150 mls/hr Dextrose/Water (Dextrose 5% In Water) 1,000 mls @ 100 mls/hr IV ASDIRECTED [facility] Last Admin: 01/14/18 03:08 Dose: 100 mls/hr Loperamide HCl (Imodium) 4 mg PO Q4H [facility] Last Admin: 01/12/18 11:48 Dose: Not Given Octreotide Acetate (Sandostatin) 250 mcg SUBCUT TID [facility] Last Admin: 01/09/18 01:44 Dose: Not Given Octreotide Acetate (Sandostatin) 250 mcg SUBCUT TID [facility] Last Admin: 01/10/18 06:31 Dose: 250 mcg Octreotide Acetate (Sandostatin) 500 mcg SUBCUT TID [facility] Potassium Chloride (Klor-Con M20) 40 meq PO DAILY [facility] Last Admin: 01/10/18 08:44 Dose: 40 meq - Exam General: Alert, Oriented, Other (cachectic) Neck: Supple Lungs: Clear to Auscultation, Normal Respiratory Effort Cardiovascular: Regular Rate, Regular Rhythm GI/Abdominal Exam: Soft, Non-Tender Extremities: Non-Tender, No Pedal Edema Skin: Warm, Dry, Intact - Problem List Review Problem List Initiated/Reviewed/Updated: Yes - My Orders Last 24 Hours: My Active Orders 01/14/18 08:00 Lactated Ringers [Ringers, Lactated] 1,000 ml IV ASDIRECTED 01/15/18 05:11 BASIC METABOLIC PANEL,BMP [CHEM] AM CBC WITH AUTO DIFF [HEME] AM 01/16/18 05:11 BASIC METABOLIC PANEL,BMP [CHEM] AM CBC WITH AUTO DIFF [HEME] AM 01/17/18 05:11 BASIC METABOLIC PANEL,BMP [CHEM] AM CBC WITH AUTO DIFF [HEME] AM 01/18/18 05:11 BASIC METABOLIC PANEL,BMP [CHEM] AM CBC WITH AUTO DIFF [HEME] AM 01/19/18 05:11 BASIC METABOLIC PANEL,BMP [CHEM] AM CBC WITH AUTO DIFF [HEME] AM - Plan Plan:: 67 yo male admitted with dehydration and acute kidney injury due to chemotherapy induced diarrhea. Stool studies positive for campylobacter. We will continue treatment with levaquin,, hyosciamine, octreotide, and Imodium. Due to high output patient is needing continues IV fluid administration.
[2018-01-14] MEDS: Levofloxacin 250 MG Tab PO SCH (11:51)
[2018-01-15] MEDS: Hyoscyamine 0.125 MG Tab.SL SL SCH ×4 (02:58→14:21)
[2018-01-15] MEDS: Loperamide 2 MG Cap PO SCH ×3 (03:03→11:17)
[2018-01-15] MEDS: Lactated Ringers 1,000 ML IV SCH ×2 (03:04→11:45)
[2018-01-15] MEDS: Octreotide 100 MCG/1 ML Amp IV SCH ×2 (06:29→14:22)
[2018-01-15] MEDS: Levothyroxine 125 MCG Tab PO SCH (06:30)
[2018-01-15] MEDS: Calcium Carbonate 500 MG Tab.Chew PO SCH ×2 (06:30→14:21)
[2018-01-15] MEDS: Atropine/Diphenoxylate 0.025-2.5 MG Tab PO SCH ×2 (06:30→11:17)
[2018-01-15 06:33] LABS: CHLORIDE,CL 110 mmol/L (98-107); SODIUM,NA 137 mmol/L (136-148)
[2018-01-15] MEDS: Pantoprazole 40 MG Vial IVPUSH SCH (06:35)
[2018-01-15] MEDS: Potassium Chloride 20 MEQ Tab.ER PO SCH (08:13)
--- NOTE | 2018-01-15 10:24 | PCM.DCSUM1 ---
Discharge Summary - Hospital Course Free Text/Narrative:: 67 yo male with history of Stage 4 rectal cancer on chemotherapy was initially admitted for dehydration and NANCY. This is presumed to be from his acute diarrhea. When the patient was recently discharged his kidney function was normal but within less than 24 hours after discharge, he presented back to the ER and his kidney function had significantly worsened secondary to the inability to keep up hydration with what he was losing in his colostomy bag. Diarrhea was initially thought to be secondary to chemotherapy however etiology is likely multifactoral as he was found to have campylobacter infection with positive Stool studies. His infection was to be treated with Levaquin 750 mg QD for 10 days. For further symptomatic relief of his diarrhea we will continue hyosciamine, octreotide, and Imodium. Patient states today that his diarrhea seems to be improving. Due to high output patient is needing continuous IV fluid administration. He has no other indications for hospitalization therefore we will arrange for out-patient IV NS 1000 ml bolus daily at the infusion center. Will continue this for 7 days as this is the remainder of time the patient needs to be on Leavaquin. 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 Informed patient that if diarhhea improves and his kidney function remains stable than he may not have to continue with the fluids but that decision will be made by either his oncologist or his PCP. Discharge Diagnosis: #Dehydration, secondary to diarrhea, improving #Diarrhea, multifactoral etiology, improving #Campylobacter Jejuni Infection, improving #NANCY, secondary to hypoperfusion, improved #Anemia with heme positive stools, stable #Stage IV rectal cancer, on chemotherapy #Immunocomprimised State - Discharge Data Discharge Date: 01/15/18 Discharge Disposition: Home, Self-Care 01 Condition: Stable - Patient Instructions Diet: Regular Diet as Tolerated Activity: As Tolerated Notify Provider of: Fever, Increased Pain, Swelling and Redness, Drainage - Discharge Plan Home Medications: Home Meds Allopurinol [Zyloprim] 100 mg PO DAILY 01/02/18 [History] Calcium Carbonate/Vitamin D3 [Calcium Carb 500 MG] 500 mg PO BID 01/02/18 [ History] Capecitabine [Xeloda] 1,000 mg PO BID 01/02/18 [History] Capecitabine [Xeloda] 300 mg PO BID 01/02/18 [History] Colchicine 0.6 mg PO DAILY PRN 01/02/18 [History] Diphenoxylate HCl/Atropine [Lomotil] 1 tab PO QID PRN 01/02/18 [History] Ferrous Fumarate [Hemocyte] 324 mg PO DAILY 01/02/18 [History] Levothyroxine 125 mcg PO ACBREAKFAST 01/02/18 [History] Multivitamin [Daily Multiple Vitamin] 1 tab PO DAILY 01/02/18 [History] Prednisone [IMW: predniSONE] 20 mg PO ASDIRECTED 01/02/18 [History] Octreotide [SandoSTATIN] 150 mcg SUBCUT TID #10 amp 01/06/18 [Rx] Patient Handouts: Dehydration, Adult, [id number] - Discharge Summary/Plan Comment DC Time >30 min.: No - General Info Date of Service: 01/15/18 Functional Status: Reports: Pain Controlled, Tolerating Diet, Ambulating, Urinating - Review of Systems General: Reports: No Symptoms HEENT: Reports: No Symptoms Pulmonary: Reports: No Symptoms Cardiovascular: Reports: No Symptoms Gastrointestinal: Reports: Diarrhea Genitourinary: Reports: No Symptoms Musculoskeletal: Reports: No Symptoms Skin: Reports: No Symptoms Neurological: Reports: No Symptoms Psychiatric: Reports: No Symptoms - Patient Data Vitals - Most Recent: Last Vital Signs Temp 36.3 C 01/15/18 07:28 Pulse 74 01/15/18 07:28 Resp 18 01/15/18 07:28 BP 85/55 L 01/15/18 07:28 Pulse Ox 95 01/15/18 07:28 Weight - Most Recent: 53.07 kg I&O - Last 24 hours: Intake & Output 01/14/18 01/15/18 01/15/18 22:59 06:59 14:59 Intake Total 250 2941 Output Total 1100 965 Balance -850 1976 Lab Results - Last 24 hrs: Laboratory Results - last 24 hr 01/15/18 01/15/18 Range/Units 05:53 05:53 WBC 2.36 L (4.0-11.0) K/uL RBC 3.43 L (4.50-5.90) M/uL Hgb 10.1 L (13.0-17.0) g/dL Hct 28.2 L (38.0-50.0) % MCV 82.2 (80.0-98.0) fL MCH 29.4 (27.0-32.0) pg MCHC 35.8 (31.0-37.0) g/dL RDW Std Deviation 51.4 (28.0-62.0) fl RDW Coeff of Rene 20 H (11.0-15.0) % Plt Count 180 (150-400) K/uL MPV 8.70 (7.40-12.00) fL Add Manual Diff YES Neutrophils % (Manual) 65 (48.0-80.0) % Band Neutrophils % 8 % Lymphocytes % (Manual) 21 (16.0-40.0) % Monocytes % (Manual) 4 (0.0-15.0) % Eosinophils % (Manual) 1 (0.0-7.0) % Basophils % (Manual) 1 (0.0-1.5) % Nucleated RBC % 0.0 /100WBC Absolute Seg Neuts 1.5 (1.4-5.7) Band Neutrophils # 0.2 Lymphocytes # (Manual) 0.5 L (0.6-2.4) Monocytes # (Manual) 0.1 (0.0-0.8) Eosinophils # (Manual) 0.0 (0.0-0.7) Basophils # (Manual) 0.0 (0.0-0.1) Nucleated RBCs # 0 K/uL Sodium 137 (136-148) mmol/L Potassium 3.5 (3.5-5.1) mmol/L Chloride 110 H (98-107) mmol/L Carbon Dioxide 18.6 L (21.0-32.0) mmol/L BUN 3 L (7.0-18.0) mg/dL Creatinine 0.9 (0.8-1.3) mg/dL Est Cr Clr Drug Dosing 58.97 mL/min Estimated GFR (MDRD) > 60.0 ml/min Glucose 81 (74-106) mg/dL Calcium 6.8 L (8.5-10.1) mg/dL ALICIA Results - Last 24 hrs: Microbiology 01/12/18 10:37 Stool Culture - Final Stool / Feces NO SALMONELLA, SHIGELLA,OR E.COLI O157 ISOLATED Campylobacter Antigen Assay - Final Positive Campylobacter Ag - Final NEGATIVE FOR SHIGA TOXIN 1 - Final NEGATIVE FOR SHIGA TOXIN 2 Med Orders - Current: Current Medications Calcium Carbonate/Glycine (Tums) 1,000 mg PO TID [facility] Last Admin: 01/15/18 06:30 Dose: 1,000 mg Diphenoxylate HCl/Atropine (Lomotil 0.025-2.5 Mg) 2 tab PO QID [facility] Last Admin: 01/15/18 06:30 Dose: 2 tab Hyoscyamine (Hyomax-Sl) 0.125 mg SL Q4H [facility] Last Admin: 01/15/18 06:30 Dose: 0.125 mg Lactated Ringer's (Ringers, Lactated) 1,000 mls @ 125 mls/hr IV ASDIRECTED [facility] Last Admin: 01/15/18 03:04 Dose: 125 mls/hr Levofloxacin (Levaquin) 750 mg PO Q48H [facility] Last Admin: 01/14/18 11:51 Dose: 750 mg Levothyroxine Sodium (Levothyroxine) 125 mcg PO ACBREAKFAST [facility] Last Admin: 01/15/18 06:30 Dose: 125 mcg Loperamide HCl (Imodium) 4 mg PO Q4H [facility] Last Admin: 01/15/18 08:12 Dose: 4 mg Octreotide Acetate (Sandostatin) 500 mcg IV TID [facility] Last Admin: 01/15/18 06:29 Dose: 500 mcg Ondansetron HCl (Zofran) 4 mg IVPUSH Q4H PRN PRN Reason: Nausea Last Admin: 01/09/18 01:30 Dose: 4 mg Pantoprazole Sodium (Protonix Iv) 40 mg IVPUSH Q24H [facility] Last Admin: 01/15/18 06:35 Dose: 40 mg Potassium Chloride (Klor-Con M20) 40 meq PO BID [facility] Last Admin: 01/15/18 08:13 Dose: 40 meq Sodium Chloride (Saline Flush) 10 ml FLUSH ASDIRECTED PRN PRN Reason: Keep Vein Open Sodium Chloride (Saline Flush) 2.5 ml FLUSH ASDIRECTED PRN PRN Reason: Keep Vein Open Discontinued Medications Calcium Carbonate/Glycine (Tums) 500 mg PO TID [facility] Last Admin: 01/11/18 06:39 Dose: 500 mg Sodium Chloride (Normal Saline) 1,000 mls @ 250 mls/hr IV ASDIRECTED [facility] Last Admin: 01/10/18 07:51 Dose: 250 mls/hr Lactated Ringer's (Ringers, Lactated) 1,000 mls @ 250 mls/hr IV ASDIRECTED [facility] Last Admin: 01/11/18 08:10 Dose: 250 mls/hr Magnesium Sulfate 4 gm/ Premix 100 mls @ 25 mls/hr IV ONETIME ONE Stop: 01/11/18 13:08 Last Admin: 01/11/18 09:32 Dose: 25 mls/hr Potassium Chloride 40 meq/ (Lactated Ringer's) 1,020 mls @ 150 mls/hr IV ASDIRECTED [facility] Stop: 01/11/18 17:02 Last Admin: 01/11/18 10:40 Dose: 150 mls/hr Lactated Ringer's (Ringers, Lactated) 1,000 mls @ 150 mls/hr IV ASDIRECTED [facility] Last Admin: 01/12/18 08:12 Dose: 150 mls/hr Dextrose/Water (Dextrose 5% In Water) 1,000 mls @ 100 mls/hr IV ASDIRECTED [facility] Last Admin: 01/14/18 03:08 Dose: 100 mls/hr Lactated Ringer's (Ringers, Lactated) 1,000 mls @ 100 mls/hr IV ASDIRECTED [facility] Last Admin: 01/14/18 20:04 Dose: 100 mls/hr Loperamide HCl (Imodium) 4 mg PO Q4H [facility] Last Admin: 01/12/18 11:48 Dose: Not Given Octreotide Acetate (Sandostatin) 250 mcg SUBCUT TID [facility] Last Admin: 01/09/18 01:44 Dose: Not Given Octreotide Acetate (Sandostatin) 250 mcg SUBCUT TID [facility] Last Admin: 01/10/18 06:31 Dose: 250 mcg Octreotide Acetate (Sandostatin) 500 mcg SUBCUT TID [facility] Potassium Chloride (Klor-Con M20) 40 meq PO DAILY [facility] Last Admin: 01/10/18 08:44 Dose: 40 meq - Exam General: Reports: Alert, Oriented HEENT: Reports: Pupils Equal, Pupils Reactive Neck: Reports: Supple Lungs: Reports: Clear to Auscultation, Normal Respiratory Effort Cardiovascular: Reports: Regular Rate, Regular Rhythm GI/Abdominal Exam: Normal Bowel Sounds, Soft, Non-Tender, No Distention, Other ( colostomy bag in place) Back Exam: Reports: Normal Inspection Extremities: Normal Inspection, No Pedal Edema Skin: Reports: Warm, Dry Neurological: Reports: No New Focal Deficit Psy/Mental Status: Reports: Alert, Normal Affect, Normal Mood
[2018-01-15] MEDS ORDERED: Levofloxacin 250 MG Tab PO SCH (12:30)
[2018-01-15 12:44] VITALS: BP 83/50
== END 2018-01-15 17:55 | disposition home or self-care (01) | DRG 641 ==
LOC: MW.ED 15:01 → MW.MS 19:04 → OBSVTOIN 01-10 09:56 → MW.MS 01-10 18:49
PROVIDERS: ADMIT Internal Medicine; ATTEND Internal Medicine
DX: E86.0 Dehydration (principal); N17.9 Acute kidney failure, unspecified; C20 Malignant neoplasm of rectum; C78.00 Secondary malignant neoplasm of unspecified lung; R19.7 Diarrhea, unspecified; B96.81 Helicobacter pylori [H. pylori] as the cause of diseases classified elsewhere; E83.51 Hypocalcemia; E87.6 Hypokalemia; D50.0 Iron deficiency anemia secondary to blood loss (chronic); T45.1X5A Adverse effect of antineoplastic and immunosuppressive drugs, initial encounter; Y92.019 Unspecified place in single-family (private) house as the place of occurrence of the external cause; E03.9 Hypothyroidism, unspecified; F17.200 Nicotine dependence, unspecified, uncomplicated; Z79.899 Other long term (current) drug therapy; Z93.3 Colostomy status; Z85.850 Personal history of malignant neoplasm of thyroid
CPT/HCPCS: 36415 ×3; 71046; 74018 ×2; 80048 ×2; 80053; 82150; 82272; 83690; 85025 ×2; 85027; 87040 ×2; 96360; 96361; 99285; A9270 ×4; C9113; J2354 ×5; J2405; J7040 ×10; 51798; 83630; 83735; 84443; 87046; 87324; 87899; 89125; 96372; 96374; 96375; G0378; J3475; J3480; J7060; J7120

== ENCOUNTER 2018-01-17 13:38 | Emergency (ER) | payer MEDICARE, BC ==
[2018-01-17] MEDS ORDERED: Sodium Chloride 0.9% 10 ML Syringe FLUSH PRN (14:01)
[2018-01-17] MEDS ORDERED: Sodium Chloride 0.9% 1,000 ML IV ONE (14:01)
[2018-01-17] MEDS ORDERED: Sodium Chloride 0.9% 2.5 ML Syringe FLUSH PRN (14:01)
--- NOTE | 2018-01-17 14:45 | EDM.PDOC ---
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 Patient has knee and days he states he has no appetite and does not force himself to eat or drink. He is becoming weaker and dehydrated. He is currently on Levaquin for the Campylobacter. Nadine Giles nurse practitioner from [place] currently here and Yayo saw him in clinic and wants him transferred to [place] for further treatment. I spoke to Nadine and she stated that Dr. Queta Malagon has accepted the patient for transfer to [facility]. Review of systems: As per history of present illness and below otherwise all systems reviewed and negative. Past medical history: As per history of present illness and as reviewed below otherwise noncontributory. Surgical history: As per history of present illness and as reviewed below otherwise noncontributory. Social history: No reported history of drug or alcohol abuse. Family history: As per history of present illness and as reviewed below otherwise noncontributory. Physical exam: General: Well decachectic, cachectic, pale in NAD HEENT: Atraumatic, normocephalic, pupils reactive, negative for conjunctival pallor or scleral icterus, mucous membranes dry, throat clear, neck supple, nontender, trachea midline. Lungs: Clear to auscultation, breath sounds equal bilaterally, chest nontender. Heart: S1S2, regular, negative for clicks, rubs, or JVD. Abdomen: Soft, nondistended, nontender colostomy with liquid brown stool. Negative for masses or hepatosplenomegaly. Negative for costovertebral tenderness. Pelvis: Stable nontender. Genitourinary: Deferred. Rectal: Deferred. Extremities: Atraumatic, negative for cords or calf pain. Neurovascular unremarkable. Neuro: Awake, alert, oriented. Cranial nerves II through XII unremarkable. Cerebellum unremarkable. Motor and sensory unremarkable throughout. Exam nonfocal. Diagnostics: []Labs done today prior to arrival to the ED were reviewed white count shows normal white count and H&H of 12/34. BUN and creatinine is 10 and 1.7 Therapeutics: []IV hydrated with normal saline with increase in blood pressure from 80/52-100/ 68 Impression: []Dehydration, stage IV adenocarcinoma of the rectum with lung metastases Plan: []Transfer to [place] for further hydration and parenteral nutrition. Dr. Baldwin at [facility] service accepts him as a transfer. Definitive disposition and diagnosis as appropriate pending reevaluation and review of above. - Related Data Allergies Allergy/AdvReac Type Severity Reaction Status Date / Time No Known Allergies Allergy Verified 01/17/18 13:50 Home Meds: Home Meds Allopurinol [Zyloprim] 100 mg PO DAILY 01/02/18 [History] Calcium Carbonate/Vitamin D3 [Calcium Carb 500 MG] 500 mg PO BID 01/02/18 [ History] Capecitabine [Xeloda] 1,000 mg PO BID 01/02/18 [History] Capecitabine [Xeloda] 300 mg PO BID 01/02/18 [History] Colchicine 0.6 mg PO DAILY PRN 01/02/18 [History] Diphenoxylate HCl/Atropine [Lomotil] 1 tab PO QID PRN 01/02/18 [History] Ferrous Fumarate [Hemocyte] 324 mg PO DAILY 01/02/18 [History] Levothyroxine 125 mcg PO ACBREAKFAST 01/02/18 [History] Multivitamin [Daily Multiple Vitamin] 1 tab PO DAILY 01/02/18 [History] Prednisone [IMW: predniSONE] 20 mg PO ASDIRECTED 01/02/18 [History] Hyoscyamine [Hyomax-SL] 0.125 mg SL Q4H 15 Days #90 tab.sl 01/15/18 [Rx] Lactated Ringers [Ringers, Lactated] 1,000 ml IV ASDIRECTED 7 Days #1 bag [Rx] Levofloxacin 750 mg PO DAILY #7 tablet 01/15/18 [Rx] Loperamide [Imodium] 4 mg PO Q4H 15 Days #180 cap 01/15/18 [Rx] Octreotide [SandoSTATIN] 150 mcg SUBCUT TID #10 amp 01/15/18 [Rx] Potassium Chloride [Klor-Con M20] 40 meq PO BID 15 Days #30 tab.er 01/15/18 [Rx] Past Medical History HEENT History: Reports: Impaired Vision Cardiovascular History: Reports: Heart Murmur Respiratory History: Reports: None Gastrointestinal History: Reports: Bowel Obstruction, Other (See Below) Other Gastrointestinal History: rectal cancer S/P APR with colostomy Genitourinary History: Reports: Other (See Below) Other Genitourinary History: cholostomy Musculoskeletal History: Reports: None Neurological History: Reports: None Psychiatric History: Reports: None Endocrine/Metabolic History: Reports: Hypothyroidism Hematologic History: Reports: None Immunologic History: Reports: None Oncologic (Cancer) History: Reports: Thyroid, Other (See Below) Other Oncologic History: rectal cancer- on chemo Dermatologic History: Reports: None - Infectious Disease History Infectious Disease History: Reports: Chicken Pox, Measles - Past Surgical History Head Surgeries/Procedures: Reports: None GI Surgical History: Reports: Other (See Below) Endocrine Surgical History: Reports: Thyroidectomy Social & Family History - Family History Family Medical History: Noncontributory - Tobacco Use Smoking Status *Q: Current Every Day Smoker Years of Tobacco use: 45 Packs/Tins Daily: 1 - Caffeine Use Caffeine Use: Reports: Soda - Recreational Drug Use Recreational Drug Use: No - Living Situation & Occupation Living situation: Reports: Alone ED ROS GENERAL - Review of Systems Review Of Systems: See Below (See history of present illness) ED EXAM, GENERAL - Physical Exam Exam: See Below (See history of present illness) Course - Vital Signs Last Recorded V/S: Last Vital Signs Temp 98.7 F 01/17/18 13:50 Pulse 101 H 01/17/18 14:17 Resp 20 01/17/18 14:17 BP 100/68 01/17/18 14:17 Pulse Ox 99 01/17/18 14:17 - Orders/Labs/Meds Orders: Active Orders 24 hr Category Date Time Status Sodium Chloride 0.9% [Saline Flush] Med 01/17/18 14:01 Active 10 ml FLUSH ASDIRECTED PRN Sodium Chloride 0.9% [Saline Flush] Med 01/17/18 14:01 Active 2.5 ml FLUSH ASDIRECTED PRN Saline Lock Insert [OM.PC] Stat Oth 01/17/18 14:00 Ordered Medication Orders Sodium Chloride (Saline Flush) 10 ml FLUSH ASDIRECTED PRN PRN Reason: Keep Vein Open Sodium Chloride (Saline Flush) 2.5 ml FLUSH ASDIRECTED PRN PRN Reason: Keep Vein Open Meds: Medications Generic Name Dose Route Start Last Admin Trade Name Irina PRN Reason Stop Dose Admin Sodium Chloride 10 ml 01/17/18 14:01 Saline Flush FLUSH ASDIRECTED PRN Keep Vein Open Sodium Chloride 2.5 ml 01/17/18 14:01 Saline Flush FLUSH ASDIRECTED PRN Keep Vein Open Discontinued Medications Generic Name Dose Route Start Last Admin Trade Name Frepanda PRN Reason Stop Dose Admin Sodium Chloride 1,000 mls @ 999 mls/hr 01/17/18 14:01 01/17/18 14:13 Normal Saline IV 01/17/18 15:01 999 mls/hr .Bolus ONE Administration - Re-Assessments/Exams Free Text/Narrative Re-Assessment/Exam: Patient was brought to the ED from oncology clinic for transfer to [place] clinic to see his primary oncologist and to receive TPN as he is not taking oral fluids well. Patient does not want to be in hospice care at this time and wants full treatment. 01/17/18 14:49 Departure - Departure Time of Disposition: 15:14 Disposition: DC/Tfer to Acute Hospital 02 Condition: Fair Clinical Impression: Adenocarcinoma of rectum, stage 4, Campylobacter diarrhea, Anorexia - Discharge Information Referrals: PCP,Unknown [Primary Care Provider] - Forms: ED Department Discharge - My Orders Last 24 Hours: My Active Orders 01/17/18 14:00 Saline Lock Insert [OM.PC] Stat 01/17/18 14:01 Sodium Chloride 0.9% [Saline Flush] 10 ml FLUSH ASDIRECTED PRN Sodium Chloride 0.9% [Saline Flush] 2.5 ml FLUSH ASDIRECTED PRN - Assessment/Plan Last 24 Hours: My Active Orders 01/17/18 14:00 Saline Lock Insert [OM.PC] Stat 01/17/18 14:01 Sodium Chloride 0.9% [Saline Flush] 10 ml FLUSH ASDIRECTED PRN Sodium Chloride 0.9% [Saline Flush] 2.5 ml FLUSH ASDIRECTED PRN
[2018-01-17 16:11] VITALS: BP 106/66
== END 2018-01-17 15:34 ==
LOC: MW.ED 13:38
DX: C20 Malignant neoplasm of rectum (principal); C78.00 Secondary malignant neoplasm of unspecified lung; A04.5 Campylobacter enteritis; E03.9 Hypothyroidism, unspecified; F17.210 Nicotine dependence, cigarettes, uncomplicated; Z51.5 Encounter for palliative care; Z79.899 Other long term (current) drug therapy
CPT/HCPCS: 96360; 99284; J7040